=== PATIENT | male | born 1960 | race Two or more races ===

== ENCOUNTER 2016-04-29 10:41 | Inpatient (IN) | payer OTHER ==
[2016-04-29 12:47] VITALS: BMI 29.6
--- NOTE | 2016-04-29 15:00 | HP ---
COWS - Scale Resting Pulse: 2= [place] 101-120 Sweatin=Flushed/Facial Moisture Restless Observation: 1= Difficult to Sit Still Pupil Size: 0= Normal to Room Light Bone or Joint Aches: 2= Severe Diffuse Aches Runny Nose/ Eye Tearin= Runny Nose/Eyes GI Upset > 30mins: 0= None Tremor Observation: 2= Slight Tremor Visible Yawning Observation: 2= >3x During Session Anxiety or Irritability: 2=Irritable/Anxious Goose Flesh Skin: 0=Smooth Skin COWS Score: 15 CIWA Score - CIWA Score Nausea/Vomitin-Mild Nausea/No Vomiting Muscle Tremors: 4-Moderate,w/Arms Extend Anxiety: 4-Mod. Anxious/Guarded Agitation: 4-Moderately Restless Paroxysmal Sweats: 3 Orientation: 0-Oriented Tacttile Disturbances: 0-None Auditory Disturbances: 0-None Visual Disturbances: 0-None Headache: 1-Very Mild CIWA-Ar Total Score: 17 Admission ROS BHS - HPI Chief Complaint: I am here to detox. Allergies/Adverse Reactions: Allergies Allergy/AdvReac Type Severity Reaction Status Date / Time No Known Allergies Allergy Verified 04/29/16 14:31 History of Present Illness: pt is a 56yr old male seeking detox treatment for alcohol and heroin dependence. Exam Limitations: Language Barrier, Other (B/L hearing loss since childhood) - Ebola screening Have you traveled outside of the country in the last 21 days: No Have you had contact with anyone from an Ebola affected area: No Have you been sick,other than usual withdrawal symptoms: No - Review of Systems Constitutional: Chills, Diaphoresis, Loss of Appetite, Night Sweats, Changes in sleep, Unintentional Wgt. Loss EENT: reports: Blurred Vision, Tearing, Hearing Loss (B/L since childhood) Respiratory: reports: No Symptoms reported Cardiac: reports: No Symptoms Reported GI: reports: Poor Appetite, Poor Fluid Intake : reports: No Symptoms Reported Musculoskeletal: reports: Back Pain, Joint Pain, Muscle Pain, Neck Pain Integumentary: reports: Flushing, Sweating Neuro: reports: Headache, Tingling, Tremors Endocrine: reports: Excessive Sweating, Flushing, Intolerance to Cold, Intolerance to Heat Hematology: reports: No Symptoms Reported Psychiatric: reports: Judgement Intact, Mood/Affect Appropiate, Orientated x3, Agitated, Anxious Other Systems: Reviewed and Negative Patient History - Patient Medical History Hx Anemia: No Hx Asthma: No Hx Chronic Obstructive Pulmonary Disease (COPD): No Hx Cancer: No Hx Cardiac Disorders: No Hx Congestive Heart Failure: No Hx Hypertension: Yes Hx Hypercholesterolemia: Yes (ON MED) Hx Pacemaker: No HX Cerebrovascular Accident: No Hx Seizures: No Hx Dementia: No Hx Diabetes: No Hx Gastrointestinal Disorders: No Hx Liver Disease: No Hx Genitourinary Disorders: No Hx Sexually Transmitted Disorders: No Hx Renal Disease (ESRD): No Hx Thyroid Disease: No Hx Human Immunodeficiency Virus (HIV): No (last 10/23/15) Hx Hepatitis C: Yes (tx'ed ) Hx Depression: Yes Hx Suicide Attempt: No (denies) Hx Bipolar Disorder: No Hx Schizophrenia: No - Patient Surgical History Past Surgical History: No Hx Neurologic Surgery: No Hx Cataract Extraction: No Hx Cardiac Surgery: No Hx Lung Surgery: No Hx Breast Surgery: No Hx Breast Biopsy: No Hx Abdominal Surgery: No Hx Appendectomy: No Hx Cholecystectomy: No Hx Genitourinary Surgery: No Hx Section: No Hx Orthopedic Surgery: No Anesthesia Reaction: No - PPD History Previous Implant?: Yes Documented Results: Negative w/proof Implanted On Prior R Admission?: Yes Date: 08/30/15 Results: 0 mm PPD to be Administered?: No - Reproductive History Patient is a Female of Child Bearing Age (11 -55 yrs old): No - Smoking Cessation Smoking history: Current every day smoker Have you smoked in the past 12 months: Yes Aproximately how many cigarettes per day: 20 Cigars Per Day: 0 Hx Chewing Tobacco Use: No Initiated information on smoking cessation: Yes 'Breaking Loose' booklet given: 04/29/16 - Substance & Tx. History Hx Alcohol Use: Yes Hx Substance Use: Yes Substance Use Type: Alcohol, Cocaine, Heroin Hx Substance Use Treatment: Yes - Substances Abused Cocaine Route: Inhalation Frequency: 3-6 times per week Amount used: $20 Age of first use: 15 Date of Last Use: 04/29/16 Hereoin Route: Inhalation Frequency: Daily Amount used: 8-10 bags Age of first use: 15 Date of Last Use: 04/28/16 Alcohol-vodka/beer Route: Oral Frequency: Daily Amount used: 1 pt./1-6 pk. Age of first use: 15 Date of Last Use: 04/29/16 Family Disease History - Family Disease History Family Disease History: Other: Father (alcohol), Mother (alcohol, htn ,) Admission Physical Exam [facility] - Vital Signs Vital Signs: Vital Signs - 24 hr 04/29/16 12:43 Temperature 98.3 F Pulse Rate 101 H Respiratory 18 Rate Blood Pressure 151/86 - Physical General Appearance: Yes: Appropriately Dressed, Moderate Distress, Tremorous, Irritable, Sweating, Anxious HEENTM: Yes: Nasal Congestion Respiratory: Yes: Lungs Clear, Normal Breath Sounds, No Respiratory Distress Neck: Yes: No masses,lesions,Nodules Breast: Yes: Within Normal Limits Cardiology: Yes: Regular Rhythm, Regular Rate, S1, S2, Tachycardia Abdominal: Yes: Normal Bowel Sounds, Non Tender Genitourinary: Yes: Within Normal Limits Back: Yes: Normal Inspection Musculoskeletal: Yes: full range of Motion, Back pain Extremities: Yes: Normal Capillary Refill, Non-Tender, Tremors Neurological: Yes: Fully Oriented, Alert, Normal Response Integumentary: Yes: Other (discoloration throughout hands and arms d/t lupus diagnosis) Lymphatic: Yes: Within Normal Limits - Diagnostic (1) Hypertension Current Visit: Yes Status: Chronic Qualifiers: Hypertension type: essential hypertension Qualified Code(s): I10 - Essential (primary) hypertension (2) Alcohol dependence with uncomplicated withdrawal Current Visit: Yes Status: Chronic (3) Cocaine dependence Current Visit: Yes Status: Chronic Qualifiers: Substance use status: uncomplicated Qualified Code(s): F14.20 - Cocaine dependence, uncomplicated (4) Hepatitis C Current Visit: No Status: Resolved Qualifiers: Viral hepatitis chronicity: chronic Hepatic coma status: without hepatic coma Qualified Code(s): B18.2 - Chronic viral hepatitis C Comment: pt states received tx and is undetectable (5) Nicotine dependence Current Visit: Yes Status: Chronic Qualifiers: Nicotine product type: cigarettes Substance use status: uncomplicated Qualified Code(s): F17.210 - Nicotine dependence, cigarettes, uncomplicated (6) Opioid dependence with withdrawal Current Visit: Yes Status: Chronic (7) Lupus (systemic lupus erythematosus) Current Visit: Yes Status: Chronic Cleared for Admission [facility] - Detox or Rehab [facility] Level of Care: Medically Managed Detox Regimen/Protocol: Methadone/Valium S Breath Alcohol Content Breath Alcohol Content: 0 Urine Drug Screen - Results Drug Screen Negative: No Urine Drug Screen Results: AMBAR-Cocaine, OPI-Opiates, MDMA-Ecstasy, BZO- Benzodiazepines, MTD-Methadone, TCA-Tricyclic Antidepress, OXY-Oxycodone
[2016-04-29] MEDS ORDERED: guaiFENesin/D-METHORPHAN HB 10 ML UNIT-DOSE CUPS PO PRN (15:10)
[2016-04-29] MEDS ORDERED: hydrOXYzine PAMOATE 50 MG CAPSULE (FP) PO PRN (15:10)
[2016-04-29] MEDS ORDERED: MAGNESIUM CITRATE 300 ML BOTTLE PO PRN (15:10)
[2016-04-29] MEDS ORDERED: MENTHOL/PHENOL 1 EACH UD MM PRN (15:10)
[2016-04-29] MEDS ORDERED: MAGNESIUM HYDROX 2400MG/30ML ORAL SUSPENSION 30 ML CUP PO PRN (15:10)
[2016-04-29] MEDS ORDERED: LOPERAMIDE HCL 2 MG CAPSULE PO PRN (15:10)
[2016-04-29] MEDS ORDERED: P-EPHED 60MG/TRIPROLIDI 2.5MG TABLET PO PRN (15:10)
[2016-04-29] MEDS ORDERED: IBUPROFEN 400 MG TABLET (FP) PO PRN (15:10)
[2016-04-29] MEDS ORDERED: diazePAM 5 MG TABLET PO ONE (15:51)
[2016-04-29] MEDS ORDERED: METHADONE HCL 10 MG TABLET (FOR DETOX USE ONLY) PO ONE ×2 (15:52→23:00)
[2016-04-29 19:27] LABS: URINE APPEARANCE CLEAR; URINE BILIRUBIN NEGATIVE (NEGATIVE); URINE BLOOD NEGATIVE (NEGATIVE); URINE COLOR LTYELLOW; URINE GLUCOSE (UA) NEGATIVE (NEGATIVE); URINE KETONE NEGATIVE (NEGATIVE); URINE LEUK ESTERASE NEGATIVE (NEGATIVE); URINE NITRITE NEGATIVE (NEGATIVE); URINE PROTEIN NEGATIVE (NEGATIVE); URINE UROBILINOGEN NEGATIVE E.U./dl (0.2-1.0)
[2016-04-29] MEDS: diphenhydrAMINE HCL 50 MG CAPSULE PO PRN (22:28)
[2016-04-29] MEDS: ATORVASTATIN CA 40 MG TABLET (FP) PO SCH (22:28)
[2016-04-29] MEDS: THIAMINE HCL 100 MG TABLET (FP) PO SCH (22:28)
[2016-04-29] MEDS: diazePAM 5 MG TABLET PO SCH (22:28)
[2016-04-30] MEDS: diazePAM 5 MG TABLET PO SCH ×3 (06:03→22:33)
--- NOTE | 2016-04-30 09:58 | CONSULT ---
[facility] Psychiatric Consult - Data Date of interview: 04/30/16 Admission source: [facility] Identifying data: Readmission to [facility] for this 56 y/o male seeking detox treatment on for alcohol,cocaine and heroin dependence.Patient is ,a father of one,now domiciled,unemployed and supported on SSI benefits. Substance Abuse History: - Smoking Cessation. Smoking history: Current every day smoker. Have you smoked in the past 12 months: Yes. Aproximately how many cigarettes per day: 20. Cigars Per Day: 0. Hx Chewing Tobacco Use: No. Initiated information on smoking cessation: Yes. 'Breaking Loose' booklet given : 04/29/16. - Substance & Tx. History. Hx Alcohol Use: Yes. Hx Substance Use : Yes. Substance Use Type: Alcohol, Cocaine, Heroin. Hx Substance Use Treatment: Yes. - Substances Abused. Cocaine. Route: Inhalation. Frequency: 3-6 times per week. Amount used: $20. Age of first use: 15. Date of Last Use: 04/29/16. Hereoin. Route: Inhalation. Frequency: Daily. Amount used: 8-10 bags. Age of first use: 15. Date of Last Use: 04/28/16. Alcohol-vodka/beer. Route: Oral. Frequency: Daily. Amount used: 1 pt./1-6 pk. Age of first use: 15. Date of Last Use: 04/29/16. Confirmed by patient. Medical History: Arthritis,hepatitis C,decreased hearing,lupus and hypertension. Psychiatric History: History of multiple psychiatric hospitalizations.Diagnosed with MDD.Patient reports,in this interview,that he has not kept his appointments at the [facility] for the past three months.Mr Haskins states that his medications continue to be seroquel 200 mg/hs + trazodone 100 mg /hs + zolpidem 10 mg/hs.Did manage to keep some supply of medications by using the services of other doctors for refills (his psychiatrist has moved elsewhere, as per patient).He indicates that he took these medications prior to this [facility] visit (except for trazodone because he ran out of this medications a week ago) .No reported history of suicide attempts. Physical/Sexual Abuse/Trauma History: Patient denies. Additional Comment: Urine Drug Screen Results: AMBAR-Cocaine, OPI-Opiates, MDMA- Ecstasy, BZO-Benzodiazepines, MTD-Methadone, TCA-Tricyclic Antidepressant, OXY- Oxycodone.Noted. Mental Status Exam - Mental Status Exam Alert and Oriented to: Time, Place, Person Cognitive Function: Good Patient Appearance: Well Groomed Mood: Nervous, Withdrawn, Anxious Affect: Mood Congruent Patient Behavior: Fatigued, Appropriate, Cooperative Speech Pattern: Clear Voice Loudness: Normal Thought Process: Goal Oriented Thought Disorder: Not Present Hallucinations: Denies Suicidal Ideation: Denies Homicidal Ideation: Denies Insight/Judgement: Poor Sleep: Poorly, Difficulty falling asleep Appetite: Good Muscle strength/Tone: Normal Gait/Station: Normal Psychiatric Findings - Problem List ([place] 1, 2,3) (1) Alcohol dependence with uncomplicated withdrawal Current Visit: Yes Status: Acute (2) Cocaine dependence Current Visit: Yes Status: Acute Qualifiers: Substance use status: uncomplicated Qualified Code(s): F14.20 - Cocaine dependence, uncomplicated (3) Nicotine dependence Current Visit: Yes Status: Acute Qualifiers: Nicotine product type: cigarettes Substance use status: uncomplicated Qualified Code(s): F17.210 - Nicotine dependence, cigarettes, uncomplicated (4) Opioid dependence with withdrawal Current Visit: Yes Status: Acute (5) Substance induced mood disorder Current Visit: Yes Status: Acute (6) Hypertension Current Visit: Yes Status: Chronic Qualifiers: Hypertension type: essential hypertension Qualified Code(s): I10 - Essential (primary) hypertension (7) Lupus (systemic lupus erythematosus) Current Visit: Yes Status: Chronic (8) Insomnia Current Visit: Yes Status: Acute - Initial Treatment Plan Initial Treatment Plan: Psychoeducation.Detoxification.Medications : seroquel 200 mg po hs + trazodone 100 mg po hs.Side effects/benefits discussed with patient.Made aware of the risk of priapism.He agrees with this plan.Observation.
[2016-04-30] MEDS ORDERED: METHADONE HCL 10 MG TABLET (FOR DETOX USE ONLY) PO SCH (10:00)
[2016-04-30] MEDS: ASPIRIN 81 MG CHEWABLE TABLETS PO SCH (10:15)
[2016-04-30] MEDS: amLODIPine BESYLATE 5 MG TABLET (FP) PO SCH (10:16)
[2016-04-30] MEDS: ACETAMINOPHEN 325 MG TABLET (FP) PO PRN (10:16)
[2016-04-30] MEDS: NICOTINE 21 MG/24 HOURS TOPICAL PATCH TD SCH (10:16)
[2016-04-30] MEDS: PRENATAL VITAMINS W/ FOLIC ACID TABLET (FP) PO SCH (10:16)
[2016-04-30 10:17] LABS: MCHC 34.4 g/dl (32.0-35.9); MEAN CELL VOLUME 87.4 fl (80-96); MEAN PLT VOLUME 8.3 fl (7.5-11.1); RDW 13.2 % (11.9-15.9); WHITE BLOOD COUNT 5.6 K/mm3 (4.0-10.0)
[2016-04-30 10:48] LABS: ALBUMIN 4.2 g/dl (3.4-5.0); ALK PHOS 86 U/L (45-117); ANION GAP 11 (8-16); BILIRUBIN,TOTAL 0.4 mg/dL (0.2-1.0); CALCIUM 9.1 mg/dL (8.5-10.1); CO2 26 mmol/L (21-32); CREATININE 0.8 mg/dL (0.7-1.3); GLUCOSE,RANDOM 86 mg/dL (74-106); SGOT/AST 42 U/L (15-37); SGPT/ALT 80 U/L (12-78); TOT PROT 7.5 g/dl (6.4-8.2)
[2016-04-30] MEDS ORDERED: COLLOIDAL OATMEAL 1 BAR EACH TP SCH (11:45)
--- NOTE | 2016-04-30 11:49 | PN ---
[facility] CIWA - CIWA Score Nausea/Vomitin-Cont. Nausea/Vomiting Muscle Tremors: 4-Moderate,w/Arms Extend Anxiety: 4-Mod. Anxious/Guarded Agitation: 4-Moderately Restless Paroxysmal Sweats: 1-Minimal Palms Moist Orientation: 0-Oriented Tacttile Disturbances: 3-Moderate Itch/Numb/Burn Auditory Disturbances: 0-None Visual Disturbances: 0-None Headache: 0-None Present CIWA-Ar Total Score: 23 BHS COWS - Scale Resting Pulse: 0= [place] 80 or Below Sweatin= Chills/Flushing Restless Observation: 3= Extraneous Movement Pupil Size: 2= Moderately Dilated Bone or Joint Aches: 4=Acute Joint/Muscle Pain Runny Nose/ Eye Tearin= Nasal Congestion GI Upset > 30mins: 1= Stomach Cramp Tremor Observation of Outstretched Hands: 1= Tremor [place], Not Seen Yawning Observation: 1= 1-2x During Session Anxiety or Irritability: 2=Irritable/Anxious Goose Flesh Skin: 0=Smooth Skin COWS Score: 16 S Progress Note (SOAP) Subjective: ANXIETY,IRRITABILITY,SWEATS/CHILLS,NECK/SHOULDER PAIN Objective: 04/30/16 11:48 Vital Signs Temperature 95.8 F L 04/30/16 10:07 Pulse Rate 73 04/30/16 10:07 Respiratory Rate 18 04/30/16 10:07 Blood Pressure 146/85 04/30/16 10:07 O2 Sat by Pulse Oximetry (%) Laboratory Last Values WBC 5.6 K/mm3 (4.0-10.0) D 04/30/16 06:00 RBC 4.81 M/mm3 (4.00-5.60) 04/30/16 06:00 Hgb 14.4 GM/dL (11.7-16.9) 04/30/16 06:00 Hct 42.0 % (35.4-49) 04/30/16 06:00 MCV 87.4 fl (80-96) 04/30/16 06:00 MCHC 34.4 g/dl (32.0-35.9) 04/30/16 06:00 RDW 13.2 % (11.9-15.9) 04/30/16 06:00 MPV 8.3 fl (7.5-11.1) 04/30/16 06:00 Sodium 140 mmol/L (136-145) 04/30/16 06:00 Potassium 3.7 mmol/L (3.5-5.1) 04/30/16 06:00 Chloride 103 mmol/L (98-107) 04/30/16 06:00 Carbon Dioxide 26 mmol/L (21-32) 04/30/16 06:00 Anion Gap 11 (8-16) 04/30/16 06:00 BUN 16 mg/dL (7-18) 04/30/16 06:00 Creatinine 0.8 mg/dL (0.7-1.3) 04/30/16 06:00 Creat Clearance w eGFR > 60 (>60) 04/30/16 06:00 Random Glucose 86 mg/dL (74-106) 04/30/16 06:00 Calcium 9.1 mg/dL (8.5-10.1) 04/30/16 06:00 Total Bilirubin 0.4 mg/dL (0.2-1.0) 04/30/16 06:00 AST 42 U/L (15-37) H D 04/30/16 06:00 ALT 80 U/L (12-78) H 04/30/16 06:00 Alkaline Phosphatase 86 U/L (45-117) 04/30/16 06:00 Total Protein 7.5 g/dl (6.4-8.2) D 04/30/16 06:00 Albumin 4.2 g/dl (3.4-5.0) D 04/30/16 06:00 Urine Color Ltyellow 04/29/16 19:00 Urine Appearance Clear 04/29/16 19:00 Urine pH 5.0 (5.0-8.0) 04/29/16 19:00 Ur Specific [place] 1.024 (1.001-1.035) 04/29/16 19:00 Urine Protein Negative (NEGATIVE) 04/29/16 19:00 Urine Glucose (UA) Negative (NEGATIVE) 04/29/16 19:00 Urine Ketones Negative (NEGATIVE) 04/29/16 19:00 Urine Blood Negative (NEGATIVE) 04/29/16 19:00 Urine Nitrite Negative (NEGATIVE) 04/29/16 19:00 Urine Bilirubin Negative (NEGATIVE) 04/29/16 19:00 Urine Urobilinogen Negative E.U./dl (0.2-1.0) 04/29/16 19:00 Ur Leukocyte Esterase Negative (NEGATIVE) 04/29/16 19:00 Assessment: 04/30/16 11:48 WITHDRAWAL SX Plan: CONTINUE DETOX MOTRIN DIRECTED FLEXERIL DIRECTED
[2016-04-30 12:04] LABS: PLATELET ESTIMATE ADEQUATE (NORMAL)
--- NOTE | 2016-04-30 12:21 | EKG ---
Test Reason : Blood Pressure : / mmHG Vent. Rate : 075 BPM Atrial Rate : 075 BPM P-R Int : 186 ms QRS Dur : 082 ms QT Int : 362 ms P-R-T Axes : 042 036 -03 degrees QTc Int : 404 ms NORMAL SINUS RHYTHM POSSIBLE LEFT ATRIAL ENLARGEMENT NONSPECIFIC ST ABNORMALITY ABNORMAL ECG NO PREVIOUS ECGS AVAILABLE Confirmed by FLORENTIN RAY MD ([id number]) on 04/30/2016 12:21:01 PM Referred By: Confirmed By:FLORENTIN RAY MD
[2016-04-30] MEDS: CYCLOBENZAPRINE HCL 10 MG TABLET (FP) PO SCH ×2 (14:12→22:33)
[2016-04-30] MEDS ORDERED: IBUPROFEN 600 MG TABLET (FP) PO PRN (19:42)
[2016-04-30] MEDS: THIAMINE HCL 100 MG TABLET (FP) PO SCH (22:30)
[2016-04-30] MEDS: ATORVASTATIN CA 40 MG TABLET (FP) PO SCH (22:33)
[2016-04-30] MEDS: traZODone HCL 100 MG TABLET (FP) PO SCH (22:33)
[2016-04-30] MEDS: QUEtiapine FUMARATE 200 MG TABLET PO SCH (22:33)
[2016-04-30] MEDS: diphenhydrAMINE HCL 50 MG CAPSULE PO PRN (22:35)
[2016-05-01] MEDS: CYCLOBENZAPRINE HCL 10 MG TABLET (FP) PO SCH ×3 (05:59→22:29)
[2016-05-01] MEDS: diazePAM 5 MG TABLET PO PRN (06:00)
[2016-05-01] MEDS: diazePAM 5 MG TABLET PO SCH ×2 (10:19→22:28)
[2016-05-01] MEDS: ASPIRIN 81 MG CHEWABLE TABLETS PO SCH (10:19)
[2016-05-01] MEDS: NICOTINE 21 MG/24 HOURS TOPICAL PATCH TD SCH (10:19)
[2016-05-01] MEDS: PRENATAL VITAMINS W/ FOLIC ACID TABLET (FP) PO SCH (10:19)
[2016-05-01] MEDS: METHADONE HCL 5 MG TABLET (FOR DETOX USE ONLY) PO SCH (10:19)
[2016-05-01] MEDS: amLODIPine BESYLATE 5 MG TABLET (FP) PO SCH (10:19)
--- NOTE | 2016-05-01 12:06 | PN ---
[facility] CIWA - CIWA Score Nausea/Vomitin-No Nausea/No Vomiting Muscle Tremors: 4-Moderate,w/Arms Extend Anxiety: 5 Agitation: 4-Moderately Restless Paroxysmal Sweats: 1-Minimal Palms Moist Orientation: 0-Oriented Tacttile Disturbances: 3-Moderate Itch/Numb/Burn Auditory Disturbances: 0-None Visual Disturbances: 0-None Headache: 0-None Present CIWA-Ar Total Score: 17 BHS COWS - Scale Resting Pulse: 0= [place] 80 or Below Sweatin= Chills/Flushing Restless Observation: 3= Extraneous Movement Pupil Size: 2= Moderately Dilated Bone or Joint Aches: 4=Acute Joint/Muscle Pain Runny Nose/ Eye Tearin= Nasal Congestion GI Upset > 30mins: 1= Stomach Cramp Tremor Observation of Outstretched Hands: 1= Tremor [place], Not Seen Yawning Observation: 1= 1-2x During Session Anxiety or Irritability: 2=Irritable/Anxious Goose Flesh Skin: 0=Smooth Skin COWS Score: 16 [facility] Progress Note (SOAP) Subjective: ANXIETY,IRRITABILITY,SWEATS,TREMORS,FATIGUE. Objective: 05/01/16 12:05 Vital Signs Temperature 98.4 F 05/01/16 09:48 Pulse Rate 80 05/01/16 09:48 Respiratory Rate 20 05/01/16 09:48 Blood Pressure 123/80 05/01/16 09:48 O2 Sat by Pulse Oximetry (%) Laboratory Last Values WBC 5.6 K/mm3 (4.0-10.0) D 04/30/16 06:00 RBC 4.81 M/mm3 (4.00-5.60) 04/30/16 06:00 Hgb 14.4 GM/dL (11.7-16.9) 04/30/16 06:00 Hct 42.0 % (35.4-49) 04/30/16 06:00 MCV 87.4 fl (80-96) 04/30/16 06:00 MCHC 34.4 g/dl (32.0-35.9) 04/30/16 06:00 RDW 13.2 % (11.9-15.9) 04/30/16 06:00 Plt Count Not Reportable 04/30/16 06:00 MPV 8.3 fl (7.5-11.1) 04/30/16 06:00 Platelet Estimate Adequate (NORMAL) 04/30/16 06:00 Platelet Comment Mod plt clumping 04/30/16 06:00 Sodium 140 mmol/L (136-145) 04/30/16 06:00 Potassium 3.7 mmol/L (3.5-5.1) 04/30/16 06:00 Chloride 103 mmol/L (98-107) 04/30/16 06:00 Carbon Dioxide 26 mmol/L (21-32) 04/30/16 06:00 Anion Gap 11 (8-16) 04/30/16 06:00 BUN 16 mg/dL (7-18) 04/30/16 06:00 Creatinine 0.8 mg/dL (0.7-1.3) 04/30/16 06:00 Creat Clearance w eGFR > 60 (>60) 04/30/16 06:00 Random Glucose 86 mg/dL (74-106) 04/30/16 06:00 Calcium 9.1 mg/dL (8.5-10.1) 04/30/16 06:00 Total Bilirubin 0.4 mg/dL (0.2-1.0) 04/30/16 06:00 AST 42 U/L (15-37) H D 04/30/16 06:00 ALT 80 U/L (12-78) H 04/30/16 06:00 Alkaline Phosphatase 86 U/L (45-117) 04/30/16 06:00 Total Protein 7.5 g/dl (6.4-8.2) D 04/30/16 06:00 Albumin 4.2 g/dl (3.4-5.0) D 04/30/16 06:00 Urine Color Ltyellow 04/29/16 19:00 Urine Appearance Clear 04/29/16 19:00 Urine pH 5.0 (5.0-8.0) 04/29/16 19:00 Ur Specific [place] 1.024 (1.001-1.035) 04/29/16 19:00 Urine Protein Negative (NEGATIVE) 04/29/16 19:00 Urine Glucose (UA) Negative (NEGATIVE) 04/29/16 19:00 Urine Ketones Negative (NEGATIVE) 04/29/16 19:00 Urine Blood Negative (NEGATIVE) 04/29/16 19:00 Urine Nitrite Negative (NEGATIVE) 04/29/16 19:00 Urine Bilirubin Negative (NEGATIVE) 04/29/16 19:00 Urine Urobilinogen Negative E.U./dl (0.2-1.0) 04/29/16 19:00 Ur Leukocyte Esterase Negative (NEGATIVE) 04/29/16 19:00 RPR Titer Nonreactive (NONREACTIVE) 04/30/16 06:00 Assessment: 05/01/16 12:06 WITHDRAWAL SX Plan: CONTINUE DETOX
[2016-05-01] MEDS: THIAMINE HCL 100 MG TABLET (FP) PO SCH (22:28)
[2016-05-01] MEDS: traZODone HCL 100 MG TABLET (FP) PO SCH (22:29)
[2016-05-01] MEDS: ATORVASTATIN CA 40 MG TABLET (FP) PO SCH (22:29)
[2016-05-01] MEDS: QUEtiapine FUMARATE 200 MG TABLET PO SCH (22:29)
[2016-05-01] MEDS: diphenhydrAMINE HCL 50 MG CAPSULE PO PRN (22:29)
[2016-05-02] MEDS: CYCLOBENZAPRINE HCL 10 MG TABLET (FP) PO SCH ×3 (05:47→22:28)
[2016-05-02] MEDS: diazePAM 5 MG TABLET PO PRN (05:48)
[2016-05-02] MEDS: PRENATAL VITAMINS W/ FOLIC ACID TABLET (FP) PO SCH (10:20)
[2016-05-02] MEDS: NICOTINE 21 MG/24 HOURS TOPICAL PATCH TD SCH (10:20)
[2016-05-02] MEDS: METHADONE HCL 5 MG TABLET (FOR DETOX USE ONLY) PO SCH (10:21)
[2016-05-02] MEDS: diazePAM 5 MG TABLET PO SCH ×2 (10:21→22:27)
[2016-05-02] MEDS: ASPIRIN 81 MG CHEWABLE TABLETS PO SCH (10:21)
[2016-05-02] MEDS: amLODIPine BESYLATE 5 MG TABLET (FP) PO SCH (10:21)
--- NOTE | 2016-05-02 11:14 | PN ---
BHS Progress Note (SOAP) Subjective: sweating,interrupted sleep,restless Objective: 05/02/16 11:13 Vital Signs - 8 hr 05/02/16 05/02/16 05/02/16 03:33 06:25 09:34 Temperature 98.0 F 97.0 F L Pulse Rate 90 94 H Respiratory 18 18 20 Rate Blood Pressure 110/70 114/82 Laboratory Last Values WBC 5.6 K/mm3 (4.0-10.0) D 04/30/16 06:00 RBC 4.81 M/mm3 (4.00-5.60) 04/30/16 06:00 Hgb 14.4 GM/dL (11.7-16.9) 04/30/16 06:00 Hct 42.0 % (35.4-49) 04/30/16 06:00 MCV 87.4 fl (80-96) 04/30/16 06:00 MCHC 34.4 g/dl (32.0-35.9) 04/30/16 06:00 RDW 13.2 % (11.9-15.9) 04/30/16 06:00 Plt Count Not Reportable 04/30/16 06:00 MPV 8.3 fl (7.5-11.1) 04/30/16 06:00 Platelet Estimate Adequate (NORMAL) 04/30/16 06:00 Platelet Comment Mod plt clumping 04/30/16 06:00 Sodium 140 mmol/L (136-145) 04/30/16 06:00 Potassium 3.7 mmol/L (3.5-5.1) 04/30/16 06:00 Chloride 103 mmol/L (98-107) 04/30/16 06:00 Carbon Dioxide 26 mmol/L (21-32) 04/30/16 06:00 Anion Gap 11 (8-16) 04/30/16 06:00 BUN 16 mg/dL (7-18) 04/30/16 06:00 Creatinine 0.8 mg/dL (0.7-1.3) 04/30/16 06:00 Creat Clearance w eGFR > 60 (>60) 04/30/16 06:00 Random Glucose 86 mg/dL (74-106) 04/30/16 06:00 Calcium 9.1 mg/dL (8.5-10.1) 04/30/16 06:00 Total Bilirubin 0.4 mg/dL (0.2-1.0) 04/30/16 06:00 AST 42 U/L (15-37) H D 04/30/16 06:00 ALT 80 U/L (12-78) H 04/30/16 06:00 Alkaline Phosphatase 86 U/L (45-117) 04/30/16 06:00 Total Protein 7.5 g/dl (6.4-8.2) D 04/30/16 06:00 Albumin 4.2 g/dl (3.4-5.0) D 04/30/16 06:00 Urine Color Ltyellow 04/29/16 19:00 Urine Appearance Clear 04/29/16 19:00 Urine pH 5.0 (5.0-8.0) 04/29/16 19:00 Ur Specific [place] 1.024 (1.001-1.035) 04/29/16 19:00 Urine Protein Negative (NEGATIVE) 04/29/16 19:00 Urine Glucose (UA) Negative (NEGATIVE) 04/29/16 19:00 Urine Ketones Negative (NEGATIVE) 04/29/16 19:00 Urine Blood Negative (NEGATIVE) 04/29/16 19:00 Urine Nitrite Negative (NEGATIVE) 04/29/16 19:00 Urine Bilirubin Negative (NEGATIVE) 04/29/16 19:00 Urine Urobilinogen Negative E.U./dl (0.2-1.0) 04/29/16 19:00 Ur Leukocyte Esterase Negative (NEGATIVE) 04/29/16 19:00 RPR Titer Nonreactive (NONREACTIVE) 04/30/16 06:00 labs noted Assessment: 05/02/16 11:13 withdrawal sx. Plan: continue detox
[2016-05-02] MEDS: THIAMINE HCL 100 MG TABLET (FP) PO SCH (22:27)
[2016-05-02] MEDS: QUEtiapine FUMARATE 200 MG TABLET PO SCH (22:28)
[2016-05-02] MEDS: MAG HYDROX/AL HYDROX/SIMETH 30 ML UNIT-DOSE CUP PO PRN (22:28)
[2016-05-02] MEDS: traZODone HCL 100 MG TABLET (FP) PO SCH (22:28)
[2016-05-02] MEDS: ATORVASTATIN CA 40 MG TABLET (FP) PO SCH (22:28)
[2016-05-03] MEDS: CYCLOBENZAPRINE HCL 10 MG TABLET (FP) PO SCH ×3 (05:46→22:37)
[2016-05-03] MEDS ORDERED: METHADONE HCL 10 MG TABLET (FOR DETOX USE ONLY) PO SCH (10:00)
[2016-05-03] MEDS ORDERED: diazePAM 5 MG TABLET PO SCH (10:00)
[2016-05-03] MEDS: ASPIRIN 81 MG CHEWABLE TABLETS PO SCH (13:24)
[2016-05-03] MEDS: NICOTINE 21 MG/24 HOURS TOPICAL PATCH TD SCH (13:25)
[2016-05-03] MEDS: PRENATAL VITAMINS W/ FOLIC ACID TABLET (FP) PO SCH (13:25)
[2016-05-03] MEDS: amLODIPine BESYLATE 5 MG TABLET (FP) PO SCH (13:25)
--- NOTE | 2016-05-03 14:51 | PN ---
S Progress Note (SOAP) Subjective: Tremors, Abdominal cramping, Diarrhea, Nausea, Sweating, Body Aches. Objective: PT. A & O X 2 (DISORIENTED ABOUT DAY/DATE). 05/03/16 14:48 Vital Signs Temperature 97 F L 05/03/16 14:23 Pulse Rate 107 H 05/03/16 14:23 Respiratory Rate 18 05/03/16 14:23 Blood Pressure 117/82 05/03/16 14:23 O2 Sat by Pulse Oximetry (%) Laboratory Last Values WBC 5.6 K/mm3 (4.0-10.0) D 04/30/16 06:00 RBC 4.81 M/mm3 (4.00-5.60) 04/30/16 06:00 Hgb 14.4 GM/dL (11.7-16.9) 04/30/16 06:00 Hct 42.0 % (35.4-49) 04/30/16 06:00 MCV 87.4 fl (80-96) 04/30/16 06:00 MCHC 34.4 g/dl (32.0-35.9) 04/30/16 06:00 RDW 13.2 % (11.9-15.9) 04/30/16 06:00 Plt Count Not Reportable 04/30/16 06:00 MPV 8.3 fl (7.5-11.1) 04/30/16 06:00 Platelet Estimate Adequate (NORMAL) 04/30/16 06:00 Platelet Comment Mod plt clumping 04/30/16 06:00 Sodium 140 mmol/L (136-145) 04/30/16 06:00 Potassium 3.7 mmol/L (3.5-5.1) 04/30/16 06:00 Chloride 103 mmol/L (98-107) 04/30/16 06:00 Carbon Dioxide 26 mmol/L (21-32) 04/30/16 06:00 Anion Gap 11 (8-16) 04/30/16 06:00 BUN 16 mg/dL (7-18) 04/30/16 06:00 Creatinine 0.8 mg/dL (0.7-1.3) 04/30/16 06:00 Creat Clearance w eGFR > 60 (>60) 04/30/16 06:00 Random Glucose 86 mg/dL (74-106) 04/30/16 06:00 Calcium 9.1 mg/dL (8.5-10.1) 04/30/16 06:00 Total Bilirubin 0.4 mg/dL (0.2-1.0) 04/30/16 06:00 AST 42 U/L (15-37) H D 04/30/16 06:00 ALT 80 U/L (12-78) H 04/30/16 06:00 Alkaline Phosphatase 86 U/L (45-117) 04/30/16 06:00 Total Protein 7.5 g/dl (6.4-8.2) D 04/30/16 06:00 Albumin 4.2 g/dl (3.4-5.0) D 04/30/16 06:00 Urine Color Ltyellow 04/29/16 19:00 Urine Appearance Clear 04/29/16 19:00 Urine pH 5.0 (5.0-8.0) 04/29/16 19:00 Ur Specific [place] 1.024 (1.001-1.035) 04/29/16 19:00 Urine Protein Negative (NEGATIVE) 04/29/16 19:00 Urine Glucose (UA) Negative (NEGATIVE) 04/29/16 19:00 Urine Ketones Negative (NEGATIVE) 04/29/16 19:00 Urine Blood Negative (NEGATIVE) 04/29/16 19:00 Urine Nitrite Negative (NEGATIVE) 04/29/16 19:00 Urine Bilirubin Negative (NEGATIVE) 04/29/16 19:00 Urine Urobilinogen Negative E.U./dl (0.2-1.0) 04/29/16 19:00 Ur Leukocyte Esterase Negative (NEGATIVE) 04/29/16 19:00 RPR Titer Nonreactive (NONREACTIVE) 04/30/16 06:00 LABS NOTED. Assessment: 05/03/16 14:49 WITHDRAWAL SYMPTOMS. Plan: CONTINUE DETOX. ADVISED PATIENT TO FOLLOW-UP WITH [facility] / REHAB MEDICAL PROVIDER AFTER DISCHARGE FROM DETOX FOR GENERAL MEDICAL ASSESSMENT AND FOR ABNORMAL LAB VALUES.
[2016-05-03] MEDS: traZODone HCL 100 MG TABLET (FP) PO SCH (22:37)
[2016-05-03] MEDS: ATORVASTATIN CA 40 MG TABLET (FP) PO SCH (22:37)
[2016-05-03] MEDS: diphenhydrAMINE HCL 50 MG CAPSULE PO PRN (22:37)
[2016-05-03] MEDS: THIAMINE HCL 100 MG TABLET (FP) PO SCH (22:37)
[2016-05-03] MEDS: QUEtiapine FUMARATE 200 MG TABLET PO SCH (22:37)
[2016-05-03] MEDS: ACETAMINOPHEN 325 MG TABLET (FP) PO PRN (22:38)
[2016-05-03] MEDS: MAG HYDROX/AL HYDROX/SIMETH 30 ML UNIT-DOSE CUP PO PRN (22:39)
[2016-05-04] MEDS: CYCLOBENZAPRINE HCL 10 MG TABLET (FP) PO SCH (05:51)
[2016-05-04] MEDS ORDERED: METHADONE HCL 5 MG TABLET (FOR DETOX USE ONLY) PO SCH (06:00)
[2016-05-04 06:23] VITALS: BP 105/64; PULSE 92; TEMP 96.6
--- NOTE | 2016-05-04 10:25 | DS ---
[facility] Detox Discharge Summary Admission Date: 04/29/16 Discharge Date: 05/04/16 - History Present History: Alcohol Dependence, Cocaine Dependence, Opioid Dependence Pertinent Past History: HTN SLE HEP c - Physical Exam Results Vital Signs: Vital Signs Temperature 96.6 F L 05/04/16 06:22 Pulse Rate 92 H 05/04/16 06:22 Respiratory Rate 16 05/04/16 06:22 Blood Pressure 105/64 05/04/16 06:22 O2 Sat by Pulse Oximetry (%) Pertinent Admission Physical Exam Findings: Withdrawal sx. Laboratory Last Values WBC 5.6 K/mm3 (4.0-10.0) D 04/30/16 06:00 RBC 4.81 M/mm3 (4.00-5.60) 04/30/16 06:00 Hgb 14.4 GM/dL (11.7-16.9) 04/30/16 06:00 Hct 42.0 % (35.4-49) 04/30/16 06:00 MCV 87.4 fl (80-96) 04/30/16 06:00 MCHC 34.4 g/dl (32.0-35.9) 04/30/16 06:00 RDW 13.2 % (11.9-15.9) 04/30/16 06:00 Plt Count Not Reportable 04/30/16 06:00 MPV 8.3 fl (7.5-11.1) 04/30/16 06:00 Platelet Estimate Adequate (NORMAL) 04/30/16 06:00 Platelet Comment Mod plt clumping 04/30/16 06:00 Sodium 140 mmol/L (136-145) 04/30/16 06:00 Potassium 3.7 mmol/L (3.5-5.1) 04/30/16 06:00 Chloride 103 mmol/L (98-107) 04/30/16 06:00 Carbon Dioxide 26 mmol/L (21-32) 04/30/16 06:00 Anion Gap 11 (8-16) 04/30/16 06:00 BUN 16 mg/dL (7-18) 04/30/16 06:00 Creatinine 0.8 mg/dL (0.7-1.3) 04/30/16 06:00 Creat Clearance w eGFR > 60 (>60) 04/30/16 06:00 Random Glucose 86 mg/dL (74-106) 04/30/16 06:00 Calcium 9.1 mg/dL (8.5-10.1) 04/30/16 06:00 Total Bilirubin 0.4 mg/dL (0.2-1.0) 04/30/16 06:00 AST 42 U/L (15-37) H D 04/30/16 06:00 ALT 80 U/L (12-78) H 04/30/16 06:00 Alkaline Phosphatase 86 U/L (45-117) 04/30/16 06:00 Total Protein 7.5 g/dl (6.4-8.2) D 04/30/16 06:00 Albumin 4.2 g/dl (3.4-5.0) D 04/30/16 06:00 Urine Color Lty[place] 04/29/16 19:00 Urine Appearance Clear 04/29/16 19:00 Urine pH 5.0 (5.0-8.0) 04/29/16 19:00 Ur Specific [place] 1.024 (1.001-1.035) 04/29/16 19:00 Urine Protein Negative (NEGATIVE) 04/29/16 19:00 Urine Glucose (UA) Negative (NEGATIVE) 04/29/16 19:00 Urine Ketones Negative (NEGATIVE) 04/29/16 19:00 Urine Blood Negative (NEGATIVE) 04/29/16 19:00 Urine Nitrite Negative (NEGATIVE) 04/29/16 19:00 Urine Bilirubin Negative (NEGATIVE) 04/29/16 19:00 Urine Urobilinogen Negative E.U./dl (0.2-1.0) 04/29/16 19:00 Ur Leukocyte Esterase Negative (NEGATIVE) 04/29/16 19:00 RPR Titer Nonreactive (NONREACTIVE) 04/30/16 06:00 labs noted - Treatment Hospital Course: Detox Protocol Followed, Detoxed Safely, Responded well, Discharged Condition Good, Rehab Referral Accepted - Medication Discharge Medications: Ambulatory Orders Zolpidem Tartrate [Ambien] 10 mg PO HS 07/08/13 Amlodipine Besylate [Norvasc -] 5 mg PO DAILY 02/20/16 Aspirin [ASA -] 81 mg PO DAILY 02/20/16 Atorvastatin Ca [Lipitor] 40 mg PO HS 02/20/16 Quetiapine Fumarate [Seroquel] 200 tab PO HS 02/20/16 Trazodone HCl 100 mg PO HS #30 tablet 02/21/16 Quetiapine Fumarate [Seroquel -] 200 mg PO HS #30 tab 04/30/16 Trazodone HCl 100 mg PO HS #30 tablet 04/30/16 - Diagnosis (1) Alcohol dependence with uncomplicated withdrawal Current Visit: Yes Status: Acute (2) Cocaine dependence Current Visit: Yes Status: Acute Qualifiers: Substance use status: uncomplicated Qualified Code(s): F14.20 - Cocaine dependence, uncomplicated (3) Insomnia Current Visit: Yes Status: Acute (4) Nicotine dependence Current Visit: Yes Status: Acute Qualifiers: Nicotine product type: cigarettes Substance use status: uncomplicated Qualified Code(s): F17.210 - Nicotine dependence, cigarettes, uncomplicated (5) Opioid dependence with withdrawal Current Visit: Yes Status: Acute (6) Substance induced mood disorder Current Visit: Yes Status: Acute (7) Hypertension Current Visit: Yes Status: Chronic Qualifiers: Hypertension type: essential hypertension Qualified Code(s): I10 - Essential (primary) hypertension (8) Lupus (systemic lupus erythematosus) Current Visit: Yes Status: Chronic - AMA Did Patient Leave Against Medical Advice: No
[2016-05-04] MEDS: ASPIRIN 81 MG CHEWABLE TABLETS PO SCH (10:42)
[2016-05-04] MEDS: PRENATAL VITAMINS W/ FOLIC ACID TABLET (FP) PO SCH (10:43)
[2016-05-04] MEDS: amLODIPine BESYLATE 5 MG TABLET (FP) PO SCH (10:43)
[2016-05-04] MEDS: NICOTINE 21 MG/24 HOURS TOPICAL PATCH TD SCH (10:43)
== END 2016-05-04 11:25 | disposition home or self-care (01) | DRG 773 ==
LOC: YASAS 10:41 → Y3N 15:35
PROVIDERS: ADMIT Internal Medicine; ATTEND Internal Medicine
PROC: HZ2ZZZZ Detoxification Services for Substance Abuse Treatment (ICD-10-PCS; principal; 2016-05-04)
DX: F11.23 Opioid dependence with withdrawal (principal); F10.230 Alcohol dependence with withdrawal, uncomplicated; F14.20 Cocaine dependence, uncomplicated; F17.210 Nicotine dependence, cigarettes, uncomplicated; F19.24 Other psychoactive substance dependence with psychoactive substance-induced mood disorder; G47.00 Insomnia, unspecified; I10 Essential (primary) hypertension; M32.9 Systemic lupus erythematosus, unspecified
CPT/HCPCS: 36415; 80053; 81003; 85027; 86593; 93005; 93010

== ENCOUNTER 2016-06-07 15:39 | Inpatient (IN) | payer OTHER ==
[2016-06-07 15:55] VITALS: BMI 29.4
--- NOTE | 2016-06-07 16:20 | HP ---
COWS - Scale Resting Pulse: 0= OR 80 or Below Sweatin=Flushed/Facial Moisture Restless Observation: 1= Difficult to Sit Still Pupil Size: 2= Moderately Dilated Bone or Joint Aches: 2= Severe Diffuse Aches Runny Nose/ Eye Tearin= Runny Nose/Eyes GI Upset > 30mins: 2= Nausea/Diarrhea Tremor Observation: 2= Slight Tremor Visible Yawning Observation: 1= 1-2x During Session Anxiety or Irritability: 2=Irritable/Anxious Goose Flesh Skin: 0=Smooth Skin COWS Score: 16 CIWA Score - CIWA Score Nausea/Vomitin Muscle Tremors: 4-Moderate,w/Arms Extend Anxiety: 4-Mod. Anxious/Guarded Agitation: 4-Moderately Restless Paroxysmal Sweats: 3 Orientation: 2-Disoriented Date<2 days Tacttile Disturbances: 1-Very Mild Itch/Numbness Auditory Disturbances: 0-None Visual Disturbances: 0-None Headache: 1-Very Mild CIWA-Ar Total Score: 21 Admission ROS BHS - HPI Chief Complaint: Withdrawal sx. Allergies/Adverse Reactions: Allergies Allergy/AdvReac Type Severity Reaction Status Date / Time No Known Allergies Allergy Verified 06/07/16 15:55 History of Present Illness: 56 y/o man with a long hx. of heroin & alcohol dependence is admitted for detox. Pt. has been in previous detox, denies significant sobriety. Exam Limitations: No Limitations - Ebola screening Have you traveled outside of the country in the last 21 days: No Have you had contact with anyone from an Ebola affected area: No Have you been sick,other than usual withdrawal symptoms: No Do you have a fever: No - Review of Systems Constitutional: Diaphoresis EENT: reports: Nose Congestion Respiratory: reports: No Symptoms reported Cardiac: reports: No Symptoms Reported GI: reports: Nausea, Abdominal cramping : reports: No Symptoms Reported Musculoskeletal: reports: No Symptoms Reported Integumentary: reports: Sweating Neuro: reports: Tremors Endocrine: reports: No Symptoms Reported Hematology: reports: No Symptoms Reported Psychiatric: reports: No Sypmtoms Reported Other Systems: Reviewed and Negative Patient History - Patient Medical History Hx Anemia: No Hx Asthma: No Hx Chronic Obstructive Pulmonary Disease (COPD): No Hx Cancer: No Hx Cardiac Disorders: No Hx Congestive Heart Failure: No Hx Hypertension: Yes Hx Hypercholesterolemia: Yes (ON MED) Hx Pacemaker: No HX Cerebrovascular Accident: No Hx Seizures: No Hx Dementia: No Hx Diabetes: No Hx Gastrointestinal Disorders: No Hx Liver Disease: No Hx Genitourinary Disorders: No Hx Sexually Transmitted Disorders: Yes (GC) Hx Renal Disease (ESRD): No Hx Thyroid Disease: No Hx Human Immunodeficiency Virus (HIV): No Hx Hepatitis C: Yes (tx'ed ) Hx Depression: Yes Hx Suicide Attempt: No (denies) Hx Bipolar Disorder: No Hx Schizophrenia: No Other Medical History: ? SLE not sure - Patient Surgical History Past Surgical History: No Hx Neurologic Surgery: No Hx Cataract Extraction: No Hx Cardiac Surgery: No Hx Lung Surgery: No Hx Breast Surgery: No Hx Breast Biopsy: No Hx Abdominal Surgery: No Hx Appendectomy: No Hx Cholecystectomy: No Hx Genitourinary Surgery: No Hx Section: No Hx Orthopedic Surgery: No Anesthesia Reaction: No - PPD History Previous Implant?: Yes Documented Results: Negative w/proof Date: 08/30/15 Results: 0 mm PPD to be Administered?: No - Smoking Cessation Smoking history: Current every day smoker Have you smoked in the past 12 months: Yes Aproximately how many cigarettes per day: 20 Cigars Per Day: 0 Hx Chewing Tobacco Use: No Initiated information on smoking cessation: Yes 'Breaking Loose' booklet given: 06/07/16 - Substance & Tx. History Hx Alcohol Use: Yes Hx Substance Use: Yes Substance Use Type: Alcohol, Heroin Hx Substance Use Treatment: Yes (Detox) - Substances Abused Alcohol Route: Oral Frequency: Daily Amount used: liquor- 1 pint, beer- 1 six pack Age of first use: 15 Date of Last Use: 06/07/16 Heroin Route: Inhalation Frequency: Daily Amount used: 8 bags Age of first use: 15 Date of Last Use: 06/07/16 Family Disease History - Family Disease History Family Disease History: Heart Disease: Mother (alcohol, htn ,), Other: Father (alcohol), Mother Admission Physical Exam BHS - Vital Signs Vital Signs: Vital Signs - 24 hr 06/07/16 15:54 Temperature 97.5 F L Pulse Rate 69 Respiratory 16 Rate Blood Pressure 134/84 - Physical General Appearance: Yes: Tremorous, Sweating, Anxious HEENTM: Yes: Nasal Congestion, Rhinorrhea Respiratory: Yes: Chest Non-Tender, Lungs Clear, Normal Breath Sounds Neck: Yes: Supple Breast: Yes: Breast Exam Deferred Cardiology: Yes: Regular Rhythm, Regular Rate, S1, S2 Abdominal: Yes: Normal Bowel Sounds, Non Tender, Soft Genitourinary: Yes: Within Normal Limits Back: Yes: Within Normal Limits Musculoskeletal: Yes: Within Normal Limits Extremities: Yes: Tremors Neurological: Yes: Fully Oriented, Alert Integumentary: Yes: Rash (hyperpigmented reash on extremities and trunk) Lymphatic: Yes: Within Normal Limits - Diagnostic (1) Alcohol dependence with uncomplicated withdrawal Current Visit: Yes Status: Acute (2) Nicotine dependence Current Visit: Yes Status: Acute Qualifiers: Nicotine product type: cigarettes Substance use status: uncomplicated Qualified Code(s): F17.210 - Nicotine dependence, cigarettes, uncomplicated (3) Opioid dependence with withdrawal Current Visit: Yes Status: Acute (4) Hypertension Current Visit: No Status: Chronic Qualifiers: Hypertension type: essential hypertension Qualified Code(s): I10 - Essential (primary) hypertension (5) Lupus (systemic lupus erythematosus) Current Visit: Yes Status: Chronic Qualifiers: Systemic lupus erythematosus type: unspecified Systemic lupus erythematosus organ involvement: unspecified Qualified Code(s): M32.9 - Systemic lupus erythematosus, unspecified Cleared for Admission BHS - Detox or Rehab S Level of Care: Medically Managed Detox Regimen/Protocol: Methadone/Librium BHS Breath Alcohol Content Breath Alcohol Content: 0 Urine Drug Screen - Results Drug Screen Negative: No Urine Drug Screen Results: OPI-Opiates, BZO-Benzodiazepines, MTD-Methadone, OXY- Oxycodone
[2016-06-07] MEDS ORDERED: MAGNESIUM CITRATE 300 ML BOTTLE PO PRN (16:29)
[2016-06-07] MEDS ORDERED: IBUPROFEN 400 MG TABLET (FP) PO PRN (16:29)
[2016-06-07] MEDS ORDERED: diphenhydrAMINE HCL 50 MG CAPSULE PO PRN (16:29)
[2016-06-07] MEDS ORDERED: hydrOXYzine PAMOATE 50 MG CAPSULE (FP) PO PRN (16:29)
[2016-06-07] MEDS ORDERED: guaiFENesin/D-METHORPHAN HB 10 ML UNIT-DOSE CUPS PO PRN (16:29)
[2016-06-07] MEDS ORDERED: MAG HYDROX/AL HYDROX/SIMETH 30 ML UNIT-DOSE CUP PO PRN (16:29)
[2016-06-07] MEDS ORDERED: MENTHOL/PHENOL 1 EACH UD MM PRN (16:29)
[2016-06-07] MEDS ORDERED: P-EPHED 60MG/TRIPROLIDI 2.5MG TABLET PO PRN (16:29)
[2016-06-07] MEDS ORDERED: chlordiazePOXIDE HCL 25 MG CAPSULE PO PRN (16:29)
[2016-06-07] MEDS ORDERED: METHADONE HCL 10 MG TABLET (FOR DETOX USE ONLY) PO ONE ×2 (16:29→23:00)
[2016-06-07] MEDS ORDERED: ACETAMINOPHEN 325 MG TABLET (FP) PO PRN (16:29)
[2016-06-07] MEDS ORDERED: MAGNESIUM HYDROX 2400MG/30ML ORAL SUSPENSION 30 ML CUP PO PRN (16:29)
[2016-06-07] MEDS ORDERED: NICOTINE POLACRILEX 2 MG GUM BC PRN (16:29)
[2016-06-07] MEDS ORDERED: chlordiazePOXIDE HCL 25 MG CAPSULE PO ONE (16:29)
[2016-06-07] MEDS ORDERED: LOPERAMIDE HCL 2 MG CAPSULE PO PRN (16:29)
[2016-06-07] MEDS: amLODIPine BESYLATE 5 MG TABLET (FP) PO SCH (18:23)
[2016-06-07] MEDS: NICOTINE 21 MG/24 HOURS TOPICAL PATCH TD SCH (18:25)
[2016-06-07] MEDS: chlordiazePOXIDE HCL 25 MG CAPSULE PO SCH ×2 (18:29→22:44)
[2016-06-07] MEDS: THIAMINE HCL 100 MG TABLET (FP) PO SCH (22:43)
[2016-06-07] MEDS: ATORVASTATIN CA 40 MG TABLET (FP) PO SCH (22:44)
[2016-06-08] MEDS: chlordiazePOXIDE HCL 25 MG CAPSULE PO SCH ×4 (05:51→22:41)
[2016-06-08] MEDS ORDERED: METHADONE HCL 10 MG TABLET (FOR DETOX USE ONLY) PO SCH (10:00)
[2016-06-08] MEDS: PRENATAL VITAMINS W/ FOLIC ACID TABLET (FP) PO SCH (10:30)
[2016-06-08] MEDS: ASPIRIN 81 MG CHEWABLE TABLETS PO SCH (10:30)
[2016-06-08] MEDS: amLODIPine BESYLATE 5 MG TABLET (FP) PO SCH (10:30)
[2016-06-08] MEDS: NICOTINE 21 MG/24 HOURS TOPICAL PATCH TD SCH (10:32)
[2016-06-08 10:53] LABS: MCH 29.7 pg (25.7-33.7); MCHC 34.8 g/dl (32.0-35.9); MEAN CELL VOLUME 85.6 fl (80-96); MEAN PLT VOLUME 7.5 fl (7.5-11.1); PLATELET COUNT 225 K/MM3 (134-434); RDW 13.3 % (11.9-15.9); WHITE BLOOD COUNT 4.3 K/mm3 (4.0-10.0)
[2016-06-08 10:57] LABS: URINE APPEARANCE CLEAR; URINE BILIRUBIN NEGATIVE (NEGATIVE); URINE BLOOD NEGATIVE (NEGATIVE); URINE COLOR STRAW; URINE GLUCOSE (UA) NEGATIVE (NEGATIVE); URINE KETONE NEGATIVE (NEGATIVE); URINE LEUK ESTERASE NEGATIVE (NEGATIVE); URINE NITRITE NEGATIVE (NEGATIVE); URINE PROTEIN NEGATIVE (NEGATIVE); URINE UROBILINOGEN NEGATIVE E.U./dl (0.2-1.0)
[2016-06-08 11:04] LABS: ALBUMIN 3.7 g/dl (3.4-5.0); ALK PHOS 91 U/L (45-117); ANION GAP 8 (8-16); BILIRUBIN,TOTAL 0.3 mg/dL (0.2-1.0); CALCIUM 8.7 mg/dL (8.5-10.1); CO2 32 mmol/L (21-32); CREATININE 0.7 mg/dL (0.7-1.3); GLUCOSE,RANDOM 91 mg/dL (74-106); SGPT/ALT 59 U/L (12-78); TOT PROT 6.5 g/dl (6.4-8.2)
[2016-06-08 11:10] LABS: SGOT/AST 28 U/L (15-37)
--- NOTE | 2016-06-08 11:42 | PN ---
S CIWA - CIWA Score Nausea/Vomitin-No Nausea/No Vomiting Muscle Tremors: 4-Moderate,w/Arms Extend Anxiety: 4-Mod. Anxious/Guarded Agitation: 3 Paroxysmal Sweats: 3 Orientation: 0-Oriented Tacttile Disturbances: 1-Very Mild Itch/Numbness Auditory Disturbances: 0-None Visual Disturbances: 0-None Headache: 0-None Present CIWA-Ar Total Score: 15 BHS Progress Note (SOAP) Subjective: Anxiety,tremors,sweating,interrupted sleep,restless Objective: 06/08/16 11:37 Vital Signs - 8 hr 06/08/16 06/08/16 06:27 09:38 Temperature 96.6 F L 97.5 F L Pulse Rate 76 76 Respiratory 16 16 Rate Blood Pressure 111/79 118/81 Laboratory Tests 06/08/16 06/08/16 06/08/16 07:30 07:30 07:30 WBC 4.3 RBC 4.64 Hgb 13.8 Hct 39.7 MCV 85.6 MCHC 34.8 RDW 13.3 Plt Count 225 D MPV 7.5 Sodium 141 Potassium 3.9 Chloride 101 Carbon Dioxide 32 D Anion Gap 8 BUN 10 D Creatinine 0.7 Creat Clearance w eGFR > 60 Random Glucose 91 Calcium 8.7 Total Bilirubin 0.3 D AST 28 D ALT 59 D Alkaline Phosphatase 91 Total Protein 6.5 Albumin 3.7 Urine Color Straw Urine Appearance Clear Urine pH 5.0 Ur Specific [place] 1.008 Urine Protein Negative Urine Glucose (UA) Negative Urine Ketones Negative Urine Blood Negative Urine Nitrite Negative Urine Bilirubin Negative Urine Urobilinogen Negative Ur Leukocyte Esterase Negative labs noted Assessment: 06/08/16 11:42 Withdrawal sx. Plan: Continue detox
--- NOTE | 2016-06-08 22:31 | EKG ---
Test Reason : Blood Pressure : / mmHG Vent. Rate : 068 BPM Atrial Rate : 068 BPM P-R Int : 152 ms QRS Dur : 080 ms QT Int : 402 ms P-R-T Axes : 000 102 012 degrees QTc Int : 427 ms NORMAL SINUS RHYTHM RIGHTWARD AXIS BORDERLINE ECG WHEN COMPARED WITH ECG OF 29-APR-2016 16:58, QUESTIONABLE CHANGE IN QRS AXIS ST NO LONGER DEPRESSED IN INFERIOR LEADS NON-SPECIFIC CHANGE IN ST SEGMENT IN LATERAL LEADS Confirmed by CAMILO BURNS MD ([id number]) on 06/08/2016 10:31:04 PM Referred By: Confirmed By:CAMILO BURNS MD
[2016-06-08] MEDS: ATORVASTATIN CA 40 MG TABLET (FP) PO SCH (22:41)
[2016-06-08] MEDS: THIAMINE HCL 100 MG TABLET (FP) PO SCH (22:41)
[2016-06-09] MEDS: chlordiazePOXIDE HCL 25 MG CAPSULE PO SCH ×2 (05:50→10:38)
--- NOTE | 2016-06-09 10:20 | CONSULT ---
[facility] Psychiatric Consult - Data Date of interview: 06/09/16 Admission source: [facility] Identifying data: Another admission to [facility] for this 56 y/o male seeking detox treatment on for alcohol and heroin dependence.Patient is ,a father of one, domiciled,unemployed and supported on SSI benefits. Substance Abuse History: - Smoking Cessation. Smoking history: Current every day smoker. Have you smoked in the past 12 months: Yes. Aproximately how many cigarettes per day: 20. Cigars Per Day: 0. Hx Chewing Tobacco Use: No. Initiated information on smoking cessation: Yes. 'Breaking Loose' booklet given : 06/07/16. - Substance & Tx. History. Hx Alcohol Use: Yes. Hx Substance Use : Yes. Substance Use Type: Alcohol, Heroin. Hx Substance Use Treatment: Yes ( Detox). - Substances Abused. Alcohol. Route: Oral. Frequency: Daily. Amount used: liquor- 1 pint, beer- 1 six pack. Age of first use: 15. Date of Last Use: 06/07/16. Heroin. Route: Inhalation. Frequency: Daily. Amount used: 8 bags. Age of first use: 15. Date of Last Use: 06/07/16. Confirmed by patient. Medical History: Arthritis,hepatitis C,decreased hearing,lupus and hypertension. Psychiatric History: History of multiple psychiatric hospitalizations.Diagnosed with MDD.Chronic history of non-adherence to medications/aftercare.Patient states that he gets his OPD care at the [facility].Prescribed seroquel 300 mg/hs + trazodone 100 mg/hs + bupropion 75 mg bid.Verified by pharmacy claims of 06/04/16 @ [facility].No reported history of suicide attempts. Physical/Sexual Abuse/Trauma History: Patient denies. Additional Comment: Urine Drug Screen Results: OPI-Opiates, BZO-Benzodiazepines , MTD-Methadone, OXY-Oxycodone.Noted. Mental Status Exam - Mental Status Exam Alert and Oriented to: Time, Place, Person Cognitive Function: Grossly Intact Patient Appearance: Well Groomed Mood: Withdrawn, Anxious, Apprehensive, Irritable Affect: Mood Congruent Patient Behavior: Fatigued, Cooperative Speech Pattern: Clear Voice Loudness: Normal Thought Process: Goal Oriented Thought Disorder: Not Present Hallucinations: Denies Suicidal Ideation: Denies Homicidal Ideation: Denies Insight/Judgement: Poor Sleep: Poorly, Difficulty falling asleep Appetite: Good Muscle strength/Tone: Normal Gait/Station: Normal Psychiatric Findings - Problem List ([place] 1, 2,3) (1) Alcohol dependence with uncomplicated withdrawal Current Visit: Yes Status: Acute (2) Opioid dependence with withdrawal Current Visit: Yes Status: Acute (3) Nicotine dependence Current Visit: Yes Status: Acute Qualifiers: Nicotine product type: cigarettes Substance use status: uncomplicated Qualified Code(s): F17.210 - Nicotine dependence, cigarettes, uncomplicated (4) Substance induced mood disorder Current Visit: Yes Status: Acute (5) Depressive disorder Current Visit: Yes Status: Chronic (6) Lupus (systemic lupus erythematosus) Current Visit: Yes Status: Chronic Qualifiers: Systemic lupus erythematosus type: unspecified Systemic lupus erythematosus organ involvement: unspecified Qualified Code(s): M32.9 - Systemic lupus erythematosus, unspecified (7) Hypertension Current Visit: Yes Status: Chronic Qualifiers: Hypertension type: essential hypertension Qualified Code(s): I10 - Essential (primary) hypertension (8) Insomnia Current Visit: Yes Status: Chronic - Initial Treatment Plan Initial Treatment Plan: Psychoeducation.Detoxification.Medications : trazodone 100 mg po hs + seroquel 50 mg po bid (patient's request) + bupropion 75 mg po bid (second dose no later than 5 pm).Side effects/benefits of each drug discussed with the patient (made aware of risk of seizures,metabolic syndrome, dyskinesias/dystonias,oversedation/falls and priapism).Patient insists on the inclusion of these drugs in the current regime of medications.Observation.NO refills necessary at discharge.
--- NOTE | 2016-06-09 10:26 | PN ---
[facility] CIWA - CIWA Score Nausea/Vomitin-No Nausea/No Vomiting Muscle Tremors: 4-Moderate,w/Arms Extend Anxiety: 3 Agitation: 3 Paroxysmal Sweats: 3 Orientation: 0-Oriented Tacttile Disturbances: 2-Mild Itch/Numbness/Burn Auditory Disturbances: 0-None Visual Disturbances: 0-None Headache: 0-None Present CIWA-Ar Total Score: 15 S COWS - Scale Resting Pulse: 0= MD 80 or Below Sweatin=Flushed/Facial Moisture Restless Observation: 1= Difficult to Sit Still Pupil Size: 0= Normal to Room Light Bone or Joint Aches: 2= Severe Diffuse Aches Runny Nose/ Eye Tearin= Runny Nose/Eyes GI Upset > 30mins: 2= Nausea/Diarrhea Tremor Observation of Outstretched Hands: 2= Slight Tremor Visible Yawning Observation: 1= 1-2x During Session Anxiety or Irritability: 2=Irritable/Anxious Goose Flesh Skin: 0=Smooth Skin COWS Score: 14 [facility] Progress Note (SOAP) Subjective: Anxiety,tremors,sweating,interrupted sleep,restless,muscle aches,itching caused by rash Objective: 06/09/16 10:25 Vital Signs - 8 hr 06/09/16 06/09/16 03:52 06:17 Temperature 97.4 F L Pulse Rate 74 Respiratory 18 18 Rate Blood Pressure 121/76 Laboratory Tests 06/08/16 06/08/16 06/08/16 07:30 07:30 07:30 WBC 4.3 RBC 4.64 Hgb 13.8 Hct 39.7 MCV 85.6 MCHC 34.8 RDW 13.3 Plt Count 225 D MPV 7.5 Sodium 141 Potassium 3.9 Chloride 101 Carbon Dioxide 32 D Anion Gap 8 BUN 10 D Creatinine 0.7 Creat Clearance w eGFR > 60 Random Glucose 91 Calcium 8.7 Total Bilirubin 0.3 D AST 28 D ALT 59 D Alkaline Phosphatase 91 Total Protein 6.5 Albumin 3.7 Urine Color Urine Appearance Urine pH Ur Specific [place] Urine Protein Urine Glucose (UA) Urine Ketones Urine Blood Urine Nitrite Urine Bilirubin Urine Urobilinogen Ur Leukocyte Esterase RPR Titer Nonreactive 06/08/16 07:30 WBC RBC Hgb Hct MCV MCHC RDW Plt Count MPV Sodium Potassium Chloride Carbon Dioxide Anion Gap BUN Creatinine Creat Clearance w eGFR Random Glucose Calcium Total Bilirubin AST ALT Alkaline Phosphatase Total Protein Albumin Urine Color Straw Urine Appearance Clear Urine pH 5.0 Ur Specific [place] 1.008 Urine Protein Negative Urine Glucose (UA) Negative Urine Ketones Negative Urine Blood Negative Urine Nitrite Negative Urine Bilirubin Negative Urine Urobilinogen Negative Ur Leukocyte Esterase Negative RPR Titer labs noted Assessment: 06/09/16 10:25 Withdrawal sx. Plan: Continue detox
[2016-06-09] MEDS: amLODIPine BESYLATE 5 MG TABLET (FP) PO SCH (10:38)
[2016-06-09] MEDS: NICOTINE 21 MG/24 HOURS TOPICAL PATCH TD SCH (10:38)
[2016-06-09] MEDS: PRENATAL VITAMINS W/ FOLIC ACID TABLET (FP) PO SCH (10:38)
[2016-06-09] MEDS: ASPIRIN 81 MG CHEWABLE TABLETS PO SCH (10:38)
[2016-06-09] MEDS: METHADONE HCL 5 MG TABLET (FOR DETOX USE ONLY) PO SCH (10:38)
[2016-06-09] MEDS: TRIAMCINOLONE ACET 0.5% CREAM 15 GM TUBE TP SCH ×3 (15:07→22:49)
[2016-06-09] MEDS: buPROPion HCL 75 MG TABLET PO SCH (17:36)
[2016-06-09] MEDS: chlordiazePOXIDE 5 MG CAPSULE PO SCH ×2 (17:36→22:47)
[2016-06-09] MEDS ORDERED: QUEtiapine FUMARATE 200 MG TABLET PO SCH (22:00)
[2016-06-09] MEDS: THIAMINE HCL 100 MG TABLET (FP) PO SCH (22:47)
[2016-06-09] MEDS: traZODone HCL 100 MG TABLET (FP) PO SCH (22:47)
[2016-06-09] MEDS: QUEtiapine FUMARATE 50 MG TABLET PO SCH (22:47)
[2016-06-09] MEDS: ATORVASTATIN CA 40 MG TABLET (FP) PO SCH (22:50)
[2016-06-10] MEDS: chlordiazePOXIDE 5 MG CAPSULE PO SCH ×2 (05:46→10:40)
[2016-06-10] MEDS: buPROPion HCL 75 MG TABLET PO SCH ×2 (10:40→17:31)
[2016-06-10] MEDS: ASPIRIN 81 MG CHEWABLE TABLETS PO SCH (10:40)
[2016-06-10] MEDS: TRIAMCINOLONE ACET 0.5% CREAM 15 GM TUBE TP SCH ×4 (10:40→22:43)
[2016-06-10] MEDS: METHADONE HCL 5 MG TABLET (FOR DETOX USE ONLY) PO SCH (10:40)
[2016-06-10] MEDS: QUEtiapine FUMARATE 50 MG TABLET PO SCH ×2 (10:41→22:43)
[2016-06-10] MEDS: PRENATAL VITAMINS W/ FOLIC ACID TABLET (FP) PO SCH (10:41)
[2016-06-10] MEDS: NICOTINE 21 MG/24 HOURS TOPICAL PATCH TD SCH (10:41)
[2016-06-10] MEDS: amLODIPine BESYLATE 5 MG TABLET (FP) PO SCH (10:41)
--- NOTE | 2016-06-10 12:36 | PN ---
BHS Progress Note (SOAP) Subjective: Sweating,interrupted sleep,restless Objective: 06/10/16 12:35 Vital Signs - 8 hr 06/10/16 06:06 Temperature 96.8 F L Pulse Rate 79 Respiratory 16 Rate Blood Pressure 97/65 Laboratory Tests 06/08/16 06/08/16 06/08/16 07:30 07:30 07:30 WBC 4.3 RBC 4.64 Hgb 13.8 Hct 39.7 MCV 85.6 MCHC 34.8 RDW 13.3 Plt Count 225 D MPV 7.5 Sodium 141 Potassium 3.9 Chloride 101 Carbon Dioxide 32 D Anion Gap 8 BUN 10 D Creatinine 0.7 Creat Clearance w eGFR > 60 Random Glucose 91 Calcium 8.7 Total Bilirubin 0.3 D AST 28 D ALT 59 D Alkaline Phosphatase 91 Total Protein 6.5 Albumin 3.7 Urine Color Urine Appearance Urine pH Ur Specific [place] Urine Protein Urine Glucose (UA) Urine Ketones Urine Blood Urine Nitrite Urine Bilirubin Urine Urobilinogen Ur Leukocyte Esterase RPR Titer Nonreactive 06/08/16 07:30 WBC RBC Hgb Hct MCV MCHC RDW Plt Count MPV Sodium Potassium Chloride Carbon Dioxide Anion Gap BUN Creatinine Creat Clearance w eGFR Random Glucose Calcium Total Bilirubin AST ALT Alkaline Phosphatase Total Protein Albumin Urine Color Straw Urine Appearance Clear Urine pH 5.0 Ur Specific [place] 1.008 Urine Protein Negative Urine Glucose (UA) Negative Urine Ketones Negative Urine Blood Negative Urine Nitrite Negative Urine Bilirubin Negative Urine Urobilinogen Negative Ur Leukocyte Esterase Negative RPR Titer labs noted Assessment: 06/10/16 12:35 Withdrawal sx. Plan: Continue detox
[2016-06-10] MEDS: chlordiazePOXIDE HCL 10 MG CAPSULE PO SCH ×2 (17:31→22:42)
[2016-06-10] MEDS: traZODone HCL 100 MG TABLET (FP) PO SCH (22:42)
[2016-06-10] MEDS: THIAMINE HCL 100 MG TABLET (FP) PO SCH (22:42)
[2016-06-10] MEDS: ATORVASTATIN CA 40 MG TABLET (FP) PO SCH (22:43)
[2016-06-11] MEDS: chlordiazePOXIDE HCL 10 MG CAPSULE PO SCH ×2 (06:24→11:00)
[2016-06-11] MEDS ORDERED: METHADONE HCL 10 MG TABLET (FOR DETOX USE ONLY) PO SCH (10:00)
[2016-06-11] MEDS: NICOTINE 21 MG/24 HOURS TOPICAL PATCH TD SCH (11:00)
[2016-06-11] MEDS: QUEtiapine FUMARATE 50 MG TABLET PO SCH ×2 (11:00→22:49)
[2016-06-11] MEDS: PRENATAL VITAMINS W/ FOLIC ACID TABLET (FP) PO SCH (11:00)
[2016-06-11] MEDS: ASPIRIN 81 MG CHEWABLE TABLETS PO SCH (11:00)
[2016-06-11] MEDS: buPROPion HCL 75 MG TABLET PO SCH ×2 (11:00→17:39)
[2016-06-11] MEDS: amLODIPine BESYLATE 5 MG TABLET (FP) PO SCH (11:00)
[2016-06-11] MEDS: TRIAMCINOLONE ACET 0.5% CREAM 15 GM TUBE TP SCH ×4 (11:20→22:48)
--- NOTE | 2016-06-11 12:27 | PN ---
BHS Progress Note (SOAP) Subjective: Sweating,interrupted sleep,restless. Objective: 06/11/16 12:26 Vital Signs - 8 hr 06/11/16 06/11/16 06:49 09:15 Temperature 97 F L 98.0 F Pulse Rate 76 80 Respiratory 18 18 Rate Blood Pressure 107/71 116/75 Laboratory Tests 06/08/16 06/08/16 06/08/16 07:30 07:30 07:30 WBC 4.3 RBC 4.64 Hgb 13.8 Hct 39.7 MCV 85.6 MCHC 34.8 RDW 13.3 Plt Count 225 D MPV 7.5 Sodium 141 Potassium 3.9 Chloride 101 Carbon Dioxide 32 D Anion Gap 8 BUN 10 D Creatinine 0.7 Creat Clearance w eGFR > 60 Random Glucose 91 Calcium 8.7 Total Bilirubin 0.3 D AST 28 D ALT 59 D Alkaline Phosphatase 91 Total Protein 6.5 Albumin 3.7 Urine Color Urine Appearance Urine pH Ur Specific [place] Urine Protein Urine Glucose (UA) Urine Ketones Urine Blood Urine Nitrite Urine Bilirubin Urine Urobilinogen Ur Leukocyte Esterase RPR Titer Nonreactive 06/08/16 07:30 WBC RBC Hgb Hct MCV MCHC RDW Plt Count MPV Sodium Potassium Chloride Carbon Dioxide Anion Gap BUN Creatinine Creat Clearance w eGFR Random Glucose Calcium Total Bilirubin AST ALT Alkaline Phosphatase Total Protein Albumin Urine Color Straw Urine Appearance Clear Urine pH 5.0 Ur Specific [place] 1.008 Urine Protein Negative Urine Glucose (UA) Negative Urine Ketones Negative Urine Blood Negative Urine Nitrite Negative Urine Bilirubin Negative Urine Urobilinogen Negative Ur Leukocyte Esterase Negative RPR Titer labs noted Assessment: 06/11/16 12:27 Withdrawal sx. Plan: Continue detox
[2016-06-11] MEDS: traZODone HCL 100 MG TABLET (FP) PO SCH (22:49)
[2016-06-11] MEDS: ATORVASTATIN CA 40 MG TABLET (FP) PO SCH (22:49)
[2016-06-11] MEDS: THIAMINE HCL 100 MG TABLET (FP) PO SCH (22:49)
[2016-06-12] MEDS ORDERED: METHADONE HCL 5 MG TABLET (FOR DETOX USE ONLY) PO SCH (06:00)
[2016-06-12 06:35] VITALS: BP 112/74; PULSE 84; TEMP 97.4
--- NOTE | 2016-06-12 08:42 | PN ---
S Progress Note (SOAP) Subjective: ALERT,NO COMPLAINT Objective: 06/12/16 08:41 Vital Signs Temperature 97.4 F L 06/12/16 06:34 Pulse Rate 84 06/12/16 06:34 Respiratory Rate 18 06/12/16 06:34 Blood Pressure 112/74 06/12/16 06:34 O2 Sat by Pulse Oximetry (%) Assessment: 06/12/16 08:41 DETOX COMPLETED,NO WITHDRAWAL SYMPTOM Plan: DISCHARGE TODAY,FOLLOW UP WITH AFTER CARE PROGRAM ARRANGEMENT
--- NOTE | 2016-06-12 08:45 | DS ---
[facility] Detox Discharge Summary Admission Date: 06/07/16 Discharge Date: 06/12/16 - History Present History: Alcohol Dependence, Opioid Dependence Additional Comments: FOLLOW UP WITH AFTER CARE PROGRAM ARRANGEMENT AND PMD FOR MEDICAL PROBLEM Pertinent Past History: NICOTINE DEPENDENCE HYPERTENSION SLE - Physical Exam Results Vital Signs: Vital Signs Temperature 97.4 F L 06/12/16 06:34 Pulse Rate 84 06/12/16 06:34 Respiratory Rate 18 06/12/16 06:34 Blood Pressure 112/74 06/12/16 06:34 O2 Sat by Pulse Oximetry (%) Pertinent Admission Physical Exam Findings: WITHDRAWAL SYMPTOM - Treatment Hospital Course: Detox Protocol Followed, Detoxed Safely, Responded well, Discharged Condition Good, Rehab Referral Accepted Patient has Accepted a Rehab Referral to: [facility] - Medication Discharge Medications: Ambulatory Orders Zolpidem Tartrate [Ambien] 10 mg PO HS 07/08/13 Amlodipine Besylate [Norvasc -] 5 mg PO DAILY 02/20/16 Aspirin [ASA -] 81 mg PO DAILY 02/20/16 Atorvastatin Ca [Lipitor] 40 mg PO HS 02/20/16 Quetiapine Fumarate [Seroquel] 200 tab PO HS 02/20/16 Trazodone HCl 100 mg PO HS #30 tablet 04/30/16 - AMA Did Patient Leave Against Medical Advice: No
[2016-06-12] MEDS: PRENATAL VITAMINS W/ FOLIC ACID TABLET (FP) PO SCH (10:37)
[2016-06-12] MEDS: amLODIPine BESYLATE 5 MG TABLET (FP) PO SCH (10:37)
[2016-06-12] MEDS: ASPIRIN 81 MG CHEWABLE TABLETS PO SCH (10:37)
[2016-06-12] MEDS: buPROPion HCL 75 MG TABLET PO SCH (10:37)
[2016-06-12] MEDS: NICOTINE 21 MG/24 HOURS TOPICAL PATCH TD SCH (10:38)
[2016-06-12] MEDS: TRIAMCINOLONE ACET 0.5% CREAM 15 GM TUBE TP SCH (10:38)
[2016-06-12] MEDS: QUEtiapine FUMARATE 50 MG TABLET PO SCH (10:38)
== END 2016-06-12 12:50 | disposition home or self-care (01) | DRG 773 ==
LOC: YASAS 15:39 → Y3N 16:02
PROVIDERS: ADMIT Internal Medicine; ATTEND Internal Medicine
PROC: HZ2ZZZZ Detoxification Services for Substance Abuse Treatment (ICD-10-PCS; principal; 2016-06-07)
DX: F11.23 Opioid dependence with withdrawal (principal); F10.230 Alcohol dependence with withdrawal, uncomplicated; F17.210 Nicotine dependence, cigarettes, uncomplicated; F19.24 Other psychoactive substance dependence with psychoactive substance-induced mood disorder; F33.9 Major depressive disorder, recurrent, unspecified; I10 Essential (primary) hypertension; M32.9 Systemic lupus erythematosus, unspecified; B18.2 Chronic viral hepatitis C; G47.00 Insomnia, unspecified; E78.00 Pure hypercholesterolemia, unspecified; Z87.438 Personal history of other diseases of male genital organs
CPT/HCPCS: 36415; 80053; 81003; 85027; 86593; 93005; 93010

== ENCOUNTER 2016-11-19 12:21 | Inpatient (IN) | payer OTHER ==
[2016-11-19 12:58] VITALS: BMI 25.5
--- NOTE | 2016-11-19 14:48 | HP ---
COWS - Scale Resting Pulse: 0= [place] 80 or Below Sweatin=Flushed/Facial Moisture Restless Observation: 1= Difficult to Sit Still Pupil Size: 0= Normal to Room Light Bone or Joint Aches: 2= Severe Diffuse Aches Runny Nose/ Eye Tearin= Runny Nose/Eyes GI Upset > 30mins: 2= Nausea/Diarrhea Tremor Observation: 2= Slight Tremor Visible Yawning Observation: 2= >3x During Session Anxiety or Irritability: 2=Irritable/Anxious Goose Flesh Skin: 3=Piloerection COWS Score: 18 CIWA Score - CIWA Score Nausea/Vomitin-No Nausea/No Vomiting Muscle Tremors: 4-Moderate,w/Arms Extend Anxiety: 3 Agitation: 4-Moderately Restless Paroxysmal Sweats: 3 Orientation: 0-Oriented Tacttile Disturbances: 0-None Auditory Disturbances: 0-None Visual Disturbances: 0-None Headache: 1-Very Mild CIWA-Ar Total Score: 15 Admission ROS S - HPI Allergies/Adverse Reactions: Allergies Allergy/AdvReac Type Severity Reaction Status Date / Time No Known Allergies Allergy Verified 11/19/16 14:16 Exam Limitations: No Limitations - Ebola screening Have you traveled outside of the country in the last 21 days: No Have you had contact with anyone from an Ebola affected area: No Have you been sick,other than usual withdrawal symptoms: No Do you have a fever: No - Review of Systems Constitutional: Chills, Diaphoresis, Night Sweats, Changes in sleep EENT: reports: Nose Congestion Respiratory: reports: No Symptoms reported Cardiac: reports: No Symptoms Reported GI: reports: Nausea, Indigestion : reports: No Symptoms Reported Musculoskeletal: reports: No Symptoms Reported, Back Pain, Joint Pain Integumentary: reports: Flushing, Pruritus (on head and neck), Sweating Neuro: reports: Headache, Tingling, Tremors Endocrine: reports: Excessive Sweating, Flushing, Intolerance to Cold, Intolerance to Heat Hematology: reports: No Symptoms Reported Psychiatric: reports: Judgement Intact, Mood/Affect Appropiate, Orientated x3, Agitated, Anxious Other Systems: Reviewed and Negative Patient History - Patient Medical History Hx Anemia: No Hx Asthma: No Hx Chronic Obstructive Pulmonary Disease (COPD): No Hx Cancer: No Hx Cardiac Disorders: No Hx Congestive Heart Failure: No Hx Hypertension: Yes Hx Hypercholesterolemia: Yes (ON MED) Hx Pacemaker: No HX Cerebrovascular Accident: No Hx Seizures: No Hx Dementia: No Hx Diabetes: No Hx Gastrointestinal Disorders: No Hx Liver Disease: No Hx Genitourinary Disorders: No Hx Sexually Transmitted Disorders: No Hx Renal Disease (ESRD): No Hx Thyroid Disease: No Hx Human Immunodeficiency Virus (HIV): No Hx Hepatitis C: Yes (tx'ed ) Hx Depression: Yes Hx Suicide Attempt: No Hx Bipolar Disorder: No Hx Schizophrenia: No - Patient Surgical History Past Surgical History: No Hx Neurologic Surgery: No Hx Cataract Extraction: No Hx Cardiac Surgery: No Hx Lung Surgery: No Hx Breast Surgery: No Hx Breast Biopsy: No Hx Abdominal Surgery: No Hx Appendectomy: No Hx Cholecystectomy: No Hx Genitourinary Surgery: No Hx Section: No Hx Orthopedic Surgery: No Anesthesia Reaction: No - PPD History Previous Implant?: Yes Documented Results: Negative w/proof Implanted On Prior R Admission?: Yes Date: 08/30/15 Results: 0 mm PPD to be Administered?: No - Reproductive History Patient is a Female of Child Bearing Age (11 -55 yrs old): No - Smoking Cessation Smoking history: Current every day smoker Have you smoked in the past 12 months: Yes Aproximately how many cigarettes per day: 4 Cigars Per Day: 0 Hx Chewing Tobacco Use: No Initiated information on smoking cessation: Yes 'Breaking Loose' booklet given: 11/19/16 - Substance & Tx. History Hx Alcohol Use: Yes Hx Substance Use: Yes Substance Use Type: Alcohol, Heroin Hx Substance Use Treatment: No - Substances Abused Heroin Route: Inhalation Frequency: Daily Amount used: 6-8 bags Age of first use: 14 Date of Last Use: 11/18/16 Cocaine Route: Inhalation Frequency: Daily Amount used: $20 Age of first use: 34 Date of Last Use: 11/18/16 Alcohol-vodka/beer Route: Oral Frequency: Daily Amount used: 1 pt./3-4 (12 oz.) Age of first use: 24 Date of Last Use: 11/19/16 Family Disease History - Family Disease History Family Disease History: Heart Disease: Mother (alcohol, htn ,), Other: Father (alcohol), Mother Admission Physical Exam BHS - Vital Signs Vital Signs: Vital Signs - 24 hr 09/06/17 12:54 Temperature 97.2 F L Pulse Rate 80 Respiratory 18 Rate Blood Pressure 160/96 - Physical General Appearance: Yes: Appropriately Dressed, Moderate Distress, Tremorous, Irritable, Sweating, Anxious HEENTM: Yes: Hearing grossly Normal, Normal Voice, Nasal Congestion Respiratory: Yes: Lungs Clear, Normal Breath Sounds Neck: Yes: No masses,lesions,Nodules Breast: Yes: Within Normal Limits Cardiology: Yes: Regular Rhythm, Regular Rate, S1, S2 Abdominal: Yes: Normal Bowel Sounds, Non Tender Genitourinary: Yes: Within Normal Limits Back: Yes: Normal Inspection Musculoskeletal: Yes: Gait Steady, Back pain Extremities: Yes: Normal Inspection, Tremors Neurological: Yes: Fully Oriented, Alert, Normal Response Integumentary: Yes: Other (rash to groin area rash to scalp area) Lymphatic: Yes: Within Normal Limits - Diagnostic (1) Alcohol dependence with uncomplicated withdrawal Current Visit: Yes Status: Chronic (2) Cocaine dependence Current Visit: Yes Status: Chronic Qualifiers: Substance use status: uncomplicated (3) Nicotine dependence Current Visit: Yes Status: Chronic Qualifiers: Nicotine product type: cigarettes Substance use status: uncomplicated Qualified Code(s): F17.210 - Nicotine dependence, cigarettes, uncomplicated (4) Opioid dependence with withdrawal Current Visit: Yes Status: Chronic (5) Hypertension Current Visit: No Status: Chronic Qualifiers: Hypertension type: essential hypertension (6) Rash and other nonspecific skin eruption Current Visit: Yes Status: Acute Comment: pt has rash to scalp and groin area. Cleared for Admission S - Detox or Rehab [facility] Level of Care: Medically Managed Detox Regimen/Protocol: Methadone/Valium S Breath Alcohol Content Breath Alcohol Content: 0 Urine Drug Screen - Results Drug Screen Negative: No Urine Drug Screen Results: AMBAR-Cocaine, OPI-Opiates
[2016-11-19] MEDS ORDERED: P-EPHED 60MG/TRIPROLIDI 2.5MG TABLET PO PRN (14:55)
[2016-11-19] MEDS ORDERED: NICOTINE POLACRILEX 4 MG GUM BC PRN (14:55)
[2016-11-19] MEDS ORDERED: guaiFENesin/D-METHORPHAN HB 10 ML UNIT-DOSE CUPS PO PRN (14:55)
[2016-11-19] MEDS ORDERED: ACETAMINOPHEN 325 MG TABLET (FP) PO PRN (14:55)
[2016-11-19] MEDS ORDERED: MAGNESIUM CITRATE 300 ML BOTTLE PO PRN (14:55)
[2016-11-19] MEDS ORDERED: MENTHOL/PHENOL 1 EACH UD MM PRN (14:55)
[2016-11-19] MEDS ORDERED: IBUPROFEN 400 MG TABLET (FP) PO PRN (14:55)
[2016-11-19] MEDS ORDERED: diphenhydrAMINE HCL 50 MG CAPSULE PO PRN (14:55)
[2016-11-19] MEDS ORDERED: LOPERAMIDE HCL 2 MG CAPSULE PO PRN (14:55)
[2016-11-19] MEDS ORDERED: MAGNESIUM HYDROX 2400MG/30ML ORAL SUSPENSION 30 ML CUP PO PRN (14:55)
[2016-11-19] MEDS ORDERED: COLLOIDAL OATMEAL 1 BAR EACH TP PRN (15:11)
[2016-11-19] MEDS ORDERED: METHADONE HCL 10 MG TABLET (FOR DETOX USE ONLY) PO ONE ×2 (17:00→23:00)
[2016-11-19] MEDS ORDERED: diazePAM 5 MG TABLET PO ONE (17:00)
[2016-11-19] MEDS ORDERED: FLUOCINONIDE 0.05% CREAM (15 GM TUBE) TP SCH (18:00)
[2016-11-19] MEDS: FLUOCINONIDE 0.05% CREAM (15 GM TUBE) TP SCH ×2 (18:37→22:45)
[2016-11-19] MEDS: MAG HYDROX/AL HYDROX/SIMETH 30 ML UNIT-DOSE CUP PO PRN (20:21)
[2016-11-19 21:50] LABS: URINE APPEARANCE CLEAR; URINE BILIRUBIN NEGATIVE (NEGATIVE); URINE BLOOD NEGATIVE (NEGATIVE); URINE COLOR LTYELLOW; URINE GLUCOSE (UA) NEGATIVE (NEGATIVE); URINE KETONE NEGATIVE (NEGATIVE); URINE LEUK ESTERASE NEGATIVE (NEGATIVE); URINE NITRITE NEGATIVE (NEGATIVE); URINE PROTEIN NEGATIVE (NEGATIVE); URINE UROBILINOGEN NEGATIVE mg/dL (0.2-1.0)
[2016-11-19] MEDS: THIAMINE HCL 100 MG TABLET (FP) PO SCH (22:16)
[2016-11-19] MEDS: diazePAM 5 MG TABLET PO SCH (22:17)
[2016-11-19] MEDS: NYSTATIN 100,000 UNIT/GM TOPICAL CREAM 15 GM TUBE TP SCH (22:44)
[2016-11-19] MEDS: ATORVASTATIN CA 40 MG TABLET (FP) PO SCH (22:44)
[2016-11-20] MEDS: diazePAM 5 MG TABLET PO PRN (01:47)
[2016-11-20] MEDS: diazePAM 5 MG TABLET PO SCH ×3 (06:38→22:23)
--- NOTE | 2016-11-20 08:29 | CONSULT ---
[facility] Psychiatric Consult - Data Date of interview: 11/20/16 Admission source: [facility] Identifying data: This is 56 years old brazilian speaking male with unclear past psychiatric hospitalization history intoxicated with: Alcohol, Heroin, Copcaine and Nicotine Substance Abuse History: - Substance & Tx. History. Hx Alcohol Use: Yes. Hx Substance Use: Yes. Substance Use Type: Alcohol, Heroin. Hx Substance Use Treatment: No. - Substances Abused. Heroin. Route: Inhalation. Frequency : Daily. Amount used: 6-8 bags. Age of first use: 14. Date of Last Use: 11/18. Cocaine. Route: Inhalation. Frequency: Daily. Amount used: $20. Age of first use: 34. Date of Last Use: 11/18/16. Alcohol-vodka/beer. Route: Oral. Frequency: Daily. Amount used: 1 pt./3-4 (12 oz.). Age of first use: 24. Date of Last Use: 11/19/16 Medical History: HTN, Lupus history, Biletral hearing disorder, Hep C+ Psychiatric History: Patient preoccupied with insomnia, reports taking prior to admission Am,laisha 10mg with good response Physical/Sexual Abuse/Trauma History: Denies Additional Comment: Ambien 10mg po qhs Mental Status Exam - Mental Status Exam Alert and Oriented to: Person Cognitive Function: Fair Patient Appearance: Unkempt Mood: Anxious Affect: Mood Congruent Patient Behavior: Cooperative Speech Pattern: Excessive Voice Loudness: Normal, Mildly Loud Thought Process: Goal Oriented Thought Disorder: Being Controlled Hallucinations: Denies Suicidal Ideation: Denies Homicidal Ideation: Denies Insight/Judgement: Fair Sleep: Difficulty falling asleep Appetite: Weight loss Muscle strength/Tone: Normal Gait/Station: Normal Additional Comments: Ambien 10mg po qhs Psychiatric Findings - Problem List ([place] 1, 2,3) (1) Alcohol dependence with uncomplicated withdrawal Current Visit: Yes Status: Chronic (2) Cocaine dependence Current Visit: Yes Status: Chronic Qualifiers: Substance use status: uncomplicated (3) Nicotine dependence Current Visit: Yes Status: Chronic Qualifiers: Nicotine product type: cigarettes Substance use status: uncomplicated Qualified Code(s): F17.210 - Nicotine dependence, cigarettes, uncomplicated (4) Opioid dependence with withdrawal Current Visit: Yes Status: Chronic (5) Substance induced mood disorder Current Visit: No Status: Acute - Initial Treatment Plan Initial Treatment Plan: Ambien 10mg po qhs
[2016-11-20 09:57] LABS: MCH 29.9 pg (25.7-33.7); MCHC 34.2 g/dl (32.0-35.9); MEAN CELL VOLUME 87.4 fl (80-96); PLATELET COUNT 292 K/MM3 (134-434); RDW 13.3 % (11.9-15.9)
[2016-11-20] MEDS ORDERED: METHADONE HCL 10 MG TABLET (FOR DETOX USE ONLY) PO SCH (10:00)
[2016-11-20] MEDS: FLUOCINONIDE 0.05% CREAM (15 GM TUBE) TP SCH ×4 (10:12→22:26)
[2016-11-20] MEDS: amLODIPine BESYLATE 5 MG TABLET (FP) PO SCH (10:13)
[2016-11-20] MEDS: NYSTATIN 100,000 UNIT/GM TOPICAL CREAM 15 GM TUBE TP SCH ×2 (10:13→22:26)
[2016-11-20] MEDS: ASPIRIN 81 MG CHEWABLE TABLETS PO SCH (10:14)
[2016-11-20] MEDS: NICOTINE 21 MG/24 HOURS TOPICAL PATCH TD SCH (10:16)
[2016-11-20] MEDS: PRENATAL VITAMINS W/ FOLIC ACID TABLET (FP) PO SCH (10:18)
[2016-11-20 10:27] LABS: ALBUMIN 4.5 g/dl (3.4-5.0); ALK PHOS 84 U/L (45-117); ANION GAP 7 (8-16); BILIRUBIN,TOTAL 0.7 mg/dL (0.2-1.0); CALCIUM 10.1 mg/dL (8.5-10.1); CO2 31 mmol/L (21-32); CREATININE 0.7 mg/dL (0.7-1.3); GLUCOSE,RANDOM 110 mg/dL (74-106); SGOT/AST 27 U/L (15-37); SGPT/ALT 37 U/L (12-78); TOT PROT 7.7 g/dl (6.4-8.2)
--- NOTE | 2016-11-20 10:40 | PN ---
[facility] CIWA - CIWA Score Nausea/Vomitin-No Nausea/No Vomiting Muscle Tremors: 4-Moderate,w/Arms Extend Anxiety: 4-Mod. Anxious/Guarded Agitation: 4-Moderately Restless Paroxysmal Sweats: 1-Minimal Palms Moist Orientation: 0-Oriented Tacttile Disturbances: 3-Moderate Itch/Numb/Burn Auditory Disturbances: 0-None Visual Disturbances: 0-None Headache: 0-None Present CIWA-Ar Total Score: 16 BHS COWS - Scale Resting Pulse: 0= [place] 80 or Below Sweatin= Chills/Flushing Restless Observation: 3= Extraneous Movement Pupil Size: 0= Normal to Room Light Bone or Joint Aches: 4=Acute Joint/Muscle Pain Runny Nose/ Eye Tearin= Nasal Congestion GI Upset > 30mins: 0= None Tremor Observation of Outstretched Hands: 1= Tremor [place], Not Seen Yawning Observation: 1= 1-2x During Session Anxiety or Irritability: 2=Irritable/Anxious Goose Flesh Skin: 0=Smooth Skin COWS Score: 13 S Progress Note (SOAP) Subjective: ANXIETY,IRRITABILITY,TREMORS,SWEATS,CHRONIC ITCHY SKIN--WAS AT [facility] IN [place] WITH DX PRURITIS AND STILL ITHCHY. Objective: 11/20/16 10:39 Vital Signs Temperature 99.7 F H 11/20/16 09:37 Pulse Rate 74 11/20/16 09:37 Respiratory Rate 18 11/20/16 09:37 Blood Pressure 124/78 11/20/16 09:37 O2 Sat by Pulse Oximetry (%) Laboratory Last Values WBC 6.0 K/mm3 (4.0-10.0) D 11/20/16 06:00 RBC 4.97 M/mm3 (4.00-5.60) 11/20/16 06:00 Hgb 14.9 GM/dL (11.7-16.9) 11/20/16 06:00 Hct 43.5 % (35.4-49) 11/20/16 06:00 MCV 87.4 fl (80-96) 11/20/16 06:00 MCH 29.9 pg (25.7-33.7) 11/20/16 06:00 MCHC 34.2 g/dl (32.0-35.9) 11/20/16 06:00 RDW 13.3 % (11.9-15.9) 11/20/16 06:00 Plt Count 292 K/MM3 (134-434) D 11/20/16 06:00 MPV 8.0 fl (7.5-11.1) 11/20/16 06:00 Urine Color Ltyellow 11/19/16 20:30 Urine Appearance Clear 11/19/16 20:30 Urine pH 7.0 (5.0-8.0) D 11/19/16 20:30 Ur Specific [place] 1.020 (1.005-1.025) 11/19/16 20:30 Urine Protein Negative (NEGATIVE) 11/19/16 20:30 Urine Glucose (UA) Negative (NEGATIVE) 11/19/16 20:30 Urine Ketones Negative (NEGATIVE) 11/19/16 20:30 Urine Blood Negative (NEGATIVE) 11/19/16 20:30 Urine Nitrite Negative (NEGATIVE) 11/19/16 20:30 Urine Bilirubin Negative (NEGATIVE) 11/19/16 20:30 Urine Urobilinogen Negative mg/dL (0.2-1.0) 11/19/16 20:30 Ur Leukocyte Esterase Negative (NEGATIVE) 11/19/16 20:30 Assessment: 11/20/16 10:39 WITHDRAWAL SX PRURITIS Plan: CONTINUE DETOX BENADRYL 25 MG PO TID
--- NOTE | 2016-11-20 12:30 | EKG ---
Test Reason : Blood Pressure : / mmHG Vent. Rate : 073 BPM Atrial Rate : 073 BPM P-R Int : 150 ms QRS Dur : 082 ms QT Int : 356 ms P-R-T Axes : 056 059 -15 degrees QTc Int : 392 ms NORMAL SINUS RHYTHM NONSPECIFIC T WAVE ABNORMALITY ABNORMAL ECG WHEN COMPARED WITH ECG OF 07-JUN-2016 16:53, INVERTED T WAVES HAVE REPLACED NONSPECIFIC T WAVE ABNORMALITY IN INFERIOR LEADS NONSPECIFIC T WAVE ABNORMALITY, WORSE IN ANTEROLATERAL LEADS Confirmed by ZENAIDA COHEN MD ([id number]) on 11/20/2016 12:30:43 PM Referred By: Confirmed By:ZENAIDA COHEN MD
[2016-11-20] MEDS: diphenhydrAMINE HCL 25 MG CAPSULE (FP) PO SCH ×2 (13:27→22:23)
[2016-11-20] MEDS: THIAMINE HCL 100 MG TABLET (FP) PO SCH (22:23)
[2016-11-20] MEDS: ATORVASTATIN CA 40 MG TABLET (FP) PO SCH (22:23)
[2016-11-20] MEDS: ZOLPIDEM TARTRATE 10 MG TABLET (PARK CARE ONLY) PO SCH (22:25)
[2016-11-21] MEDS: diphenhydrAMINE HCL 25 MG CAPSULE (FP) PO SCH ×3 (05:32→22:12)
[2016-11-21] MEDS: diazePAM 5 MG TABLET PO PRN (05:36)
[2016-11-21] MEDS: diazePAM 5 MG TABLET PO SCH ×2 (10:19→22:12)
[2016-11-21] MEDS: METHADONE HCL 5 MG TABLET (FOR DETOX USE ONLY) PO SCH (10:19)
[2016-11-21] MEDS: PRENATAL VITAMINS W/ FOLIC ACID TABLET (FP) PO SCH (10:20)
[2016-11-21] MEDS: ASPIRIN 81 MG CHEWABLE TABLETS PO SCH (10:20)
[2016-11-21] MEDS: amLODIPine BESYLATE 5 MG TABLET (FP) PO SCH (10:20)
[2016-11-21] MEDS: NICOTINE 21 MG/24 HOURS TOPICAL PATCH TD SCH (10:22)
[2016-11-21] MEDS: FLUOCINONIDE 0.05% CREAM (15 GM TUBE) TP SCH ×4 (10:23→22:12)
[2016-11-21] MEDS: NYSTATIN 100,000 UNIT/GM TOPICAL CREAM 15 GM TUBE TP SCH ×2 (10:23→22:11)
--- NOTE | 2016-11-21 11:02 | PN ---
[facility] CIWA - CIWA Score Nausea/Vomitin-No Nausea/No Vomiting Muscle Tremors: 4-Moderate,w/Arms Extend Anxiety: 4-Mod. Anxious/Guarded Agitation: 4-Moderately Restless Paroxysmal Sweats: 1-Minimal Palms Moist Orientation: 0-Oriented Tacttile Disturbances: 3-Moderate Itch/Numb/Burn Auditory Disturbances: 0-None Visual Disturbances: 0-None Headache: 0-None Present CIWA-Ar Total Score: 16 S COWS - Scale Resting Pulse: 0= [place] 80 or Below Sweatin= Chills/Flushing Restless Observation: 3= Extraneous Movement Pupil Size: 0= Normal to Room Light Bone or Joint Aches: 4=Acute Joint/Muscle Pain Runny Nose/ Eye Tearin= Nasal Congestion GI Upset > 30mins: 1= Stomach Cramp Tremor Observation of Outstretched Hands: 1= Tremor [place], Not Seen Yawning Observation: 1= 1-2x During Session Anxiety or Irritability: 1=Feels Anxious/Irritable Goose Flesh Skin: 0=Smooth Skin COWS Score: 13 S Progress Note (SOAP) Subjective: ANXIETY,IRRITABILITY,SWEATS,INTERMITTENT SLEEP. Objective: 11/21/16 11:04 Vital Signs Temperature 96.1 F L 11/21/16 10:21 Pulse Rate 79 11/21/16 10:21 Respiratory Rate 18 11/21/16 10:21 Blood Pressure 134/91 11/21/16 10:21 O2 Sat by Pulse Oximetry (%) Laboratory Last Values WBC 6.0 K/mm3 (4.0-10.0) D 11/20/16 06:00 RBC 4.97 M/mm3 (4.00-5.60) 11/20/16 06:00 Hgb 14.9 GM/dL (11.7-16.9) 11/20/16 06:00 Hct 43.5 % (35.4-49) 11/20/16 06:00 MCV 87.4 fl (80-96) 11/20/16 06:00 MCH 29.9 pg (25.7-33.7) 11/20/16 06:00 MCHC 34.2 g/dl (32.0-35.9) 11/20/16 06:00 RDW 13.3 % (11.9-15.9) 11/20/16 06:00 Plt Count 292 K/MM3 (134-434) D 11/20/16 06:00 MPV 8.0 fl (7.5-11.1) 11/20/16 06:00 Sodium 135 mmol/L (136-145) L 11/20/16 06:00 Potassium 3.9 mmol/L (3.5-5.1) 11/20/16 06:00 Chloride 97 mmol/L (98-107) L 11/20/16 06:00 Carbon Dioxide 31 mmol/L (21-32) 11/20/16 06:00 Anion Gap 7 (8-16) L 11/20/16 06:00 BUN 9 mg/dL (7-18) 11/20/16 06:00 Creatinine 0.7 mg/dL (0.7-1.3) 11/20/16 06:00 Creat Clearance w eGFR > 60 (>60) 11/20/16 06:00 Random Glucose 110 mg/dL (74-106) H D 11/20/16 06:00 Calcium 10.1 mg/dL (8.5-10.1) 11/20/16 06:00 Total Bilirubin 0.7 mg/dL (0.2-1.0) D 11/20/16 06:00 AST 27 U/L (15-37) 11/20/16 06:00 ALT 37 U/L (12-78) D 11/20/16 06:00 Alkaline Phosphatase 84 U/L (45-117) 11/20/16 06:00 Total Protein 7.7 g/dl (6.4-8.2) 11/20/16 06:00 Albumin 4.5 g/dl (3.4-5.0) D 11/20/16 06:00 Urine Color Ltyellow 11/19/16 20:30 Urine Appearance Clear 11/19/16 20:30 Urine pH 7.0 (5.0-8.0) D 11/19/16 20:30 Ur Specific [place] 1.020 (1.005-1.025) 11/19/16 20:30 Urine Protein Negative (NEGATIVE) 11/19/16 20:30 Urine Glucose (UA) Negative (NEGATIVE) 11/19/16 20:30 Urine Ketones Negative (NEGATIVE) 11/19/16 20:30 Urine Blood Negative (NEGATIVE) 11/19/16 20:30 Urine Nitrite Negative (NEGATIVE) 11/19/16 20:30 Urine Bilirubin Negative (NEGATIVE) 11/19/16 20:30 Urine Urobilinogen Negative mg/dL (0.2-1.0) 11/19/16 20:30 Ur Leukocyte Esterase Negative (NEGATIVE) 11/19/16 20:30 RPR Titer Nonreactive (NONREACTIVE) 11/20/16 06:00 Assessment: 11/21/16 11:04 WITHDRAWAL SX Plan: CONTINUE DETOX
[2016-11-21] MEDS: MAG HYDROX/AL HYDROX/SIMETH 30 ML UNIT-DOSE CUP PO PRN (17:29)
[2016-11-21] MEDS: ZOLPIDEM TARTRATE 10 MG TABLET (PARK CARE ONLY) PO SCH (22:12)
[2016-11-21] MEDS: ATORVASTATIN CA 40 MG TABLET (FP) PO SCH (22:12)
[2016-11-21] MEDS: THIAMINE HCL 100 MG TABLET (FP) PO SCH (22:12)
[2016-11-22] MEDS: diazePAM 5 MG TABLET PO PRN (06:12)
[2016-11-22] MEDS: diphenhydrAMINE HCL 25 MG CAPSULE (FP) PO SCH ×3 (06:13→22:44)
[2016-11-22] MEDS: ASPIRIN 81 MG CHEWABLE TABLETS PO SCH (10:54)
[2016-11-22] MEDS: diazePAM 5 MG TABLET PO SCH ×2 (10:55→22:42)
[2016-11-22] MEDS: NYSTATIN 100,000 UNIT/GM TOPICAL CREAM 15 GM TUBE TP SCH ×2 (10:55→22:42)
[2016-11-22] MEDS: PRENATAL VITAMINS W/ FOLIC ACID TABLET (FP) PO SCH (10:55)
[2016-11-22] MEDS: FLUOCINONIDE 0.05% CREAM (15 GM TUBE) TP SCH ×4 (10:55→22:43)
[2016-11-22] MEDS: amLODIPine BESYLATE 5 MG TABLET (FP) PO SCH (10:55)
[2016-11-22] MEDS: METHADONE HCL 5 MG TABLET (FOR DETOX USE ONLY) PO SCH (10:55)
[2016-11-22] MEDS: NICOTINE 21 MG/24 HOURS TOPICAL PATCH TD SCH (10:56)
[2016-11-22] MEDS: hydrOXYzine PAMOATE 50 MG CAPSULE (FP) PO PRN (17:27)
--- NOTE | 2016-11-22 18:52 | PN ---
BHS Progress Note (SOAP) Subjective: Body Aches, Stomach Cramping, Sweating, Interrupted Sleep. Objective: PT. A & O X 3. NO ACUTE DISTRESS. 11/22/16 18:51 Vital Signs Temperature 98.3 F 11/22/16 17:58 Pulse Rate 75 11/22/16 17:58 Respiratory Rate 16 11/22/16 17:58 Blood Pressure 108/62 11/22/16 17:58 O2 Sat by Pulse Oximetry (%) Laboratory Tests 11/19/16 11/20/16 11/20/16 20:30 06:00 06:00 WBC 6.0 D RBC 4.97 Hgb 14.9 Hct 43.5 MCV 87.4 MCH 29.9 MCHC 34.2 RDW 13.3 Plt Count 292 D MPV 8.0 Sodium 135 L Potassium 3.9 Chloride 97 L Carbon Dioxide 31 Anion Gap 7 L BUN 9 Creatinine 0.7 Creat Clearance w eGFR > 60 Random Glucose 110 H D Calcium 10.1 Total Bilirubin 0.7 D AST 27 ALT 37 D Alkaline Phosphatase 84 Total Protein 7.7 Albumin 4.5 D Urine Color Ltyellow Urine Appearance Clear Urine pH 7.0 D Ur Specific [place] 1.020 Urine Protein Negative Urine Glucose (UA) Negative Urine Ketones Negative Urine Blood Negative Urine Nitrite Negative Urine Bilirubin Negative Urine Urobilinogen Negative Ur Leukocyte Esterase Negative RPR Titer 11/20/16 06:00 WBC RBC Hgb Hct MCV MCH MCHC RDW Plt Count MPV Sodium Potassium Chloride Carbon Dioxide Anion Gap BUN Creatinine Creat Clearance w eGFR Random Glucose Calcium Total Bilirubin AST ALT Alkaline Phosphatase Total Protein Albumin Urine Color Urine Appearance Urine pH Ur Specific [place] Urine Protein Urine Glucose (UA) Urine Ketones Urine Blood Urine Nitrite Urine Bilirubin Urine Urobilinogen Ur Leukocyte Esterase RPR Titer Nonreactive labs noted. Assessment: 11/22/16 18:51 WITHDRAWAL SYMPTOMS. Plan: CONTINUE DETOX.
[2016-11-22] MEDS: THIAMINE HCL 100 MG TABLET (FP) PO SCH (22:41)
[2016-11-22] MEDS: ZOLPIDEM TARTRATE 10 MG TABLET (PARK CARE ONLY) PO SCH (22:42)
[2016-11-22] MEDS: ATORVASTATIN CA 40 MG TABLET (FP) PO SCH (22:44)
[2016-11-23] MEDS: diphenhydrAMINE HCL 25 MG CAPSULE (FP) PO SCH ×3 (05:35→22:23)
[2016-11-23] MEDS ORDERED: diazePAM 5 MG TABLET PO SCH (10:00)
[2016-11-23] MEDS ORDERED: METHADONE HCL 10 MG TABLET (FOR DETOX USE ONLY) PO SCH (10:00)
[2016-11-23] MEDS: amLODIPine BESYLATE 5 MG TABLET (FP) PO SCH (10:20)
[2016-11-23] MEDS: ASPIRIN 81 MG CHEWABLE TABLETS PO SCH (10:20)
[2016-11-23] MEDS: PRENATAL VITAMINS W/ FOLIC ACID TABLET (FP) PO SCH (10:20)
[2016-11-23] MEDS: NYSTATIN 100,000 UNIT/GM TOPICAL CREAM 15 GM TUBE TP SCH ×2 (10:21→22:24)
[2016-11-23] MEDS: FLUOCINONIDE 0.05% CREAM (15 GM TUBE) TP SCH ×4 (10:22→22:24)
[2016-11-23] MEDS: NICOTINE 21 MG/24 HOURS TOPICAL PATCH TD SCH (10:23)
[2016-11-23] MEDS: MAG HYDROX/AL HYDROX/SIMETH 30 ML UNIT-DOSE CUP PO PRN (11:13)
--- NOTE | 2016-11-23 14:48 | PN ---
BHS Progress Note (SOAP) Subjective: Sweating, interrupted sleep, anxious Objective: 11/23/16 14:47 Last Vital Signs Temp Pulse Resp BP Pulse Ox 97.7 F 77 18 127/80 11/23/16 13:17 11/23/16 13:17 11/23/16 13:17 11/23/16 13:17 Laboratory Tests 11/19/16 11/20/16 11/20/16 20:30 06:00 06:00 WBC 6.0 D RBC 4.97 Hgb 14.9 Hct 43.5 MCV 87.4 MCH 29.9 MCHC 34.2 RDW 13.3 Plt Count 292 D MPV 8.0 Sodium 135 L Potassium 3.9 Chloride 97 L Carbon Dioxide 31 Anion Gap 7 L BUN 9 Creatinine 0.7 Creat Clearance w eGFR > 60 Random Glucose 110 H D Calcium 10.1 Total Bilirubin 0.7 D AST 27 ALT 37 D Alkaline Phosphatase 84 Total Protein 7.7 Albumin 4.5 D Urine Color Ltyellow Urine Appearance Clear Urine pH 7.0 D Ur Specific [place] 1.020 Urine Protein Negative Urine Glucose (UA) Negative Urine Ketones Negative Urine Blood Negative Urine Nitrite Negative Urine Bilirubin Negative Urine Urobilinogen Negative Ur Leukocyte Esterase Negative RPR Titer 11/20/16 06:00 WBC RBC Hgb Hct MCV MCH MCHC RDW Plt Count MPV Sodium Potassium Chloride Carbon Dioxide Anion Gap BUN Creatinine Creat Clearance w eGFR Random Glucose Calcium Total Bilirubin AST ALT Alkaline Phosphatase Total Protein Albumin Urine Color Urine Appearance Urine pH Ur Specific [place] Urine Protein Urine Glucose (UA) Urine Ketones Urine Blood Urine Nitrite Urine Bilirubin Urine Urobilinogen Ur Leukocyte Esterase RPR Titer Nonreactive Labs noted Assessment: 11/23/16 14:48 Withdrawal symptoms Plan: Continue detox
[2016-11-23] MEDS: THIAMINE HCL 100 MG TABLET (FP) PO SCH (22:23)
[2016-11-23] MEDS: ATORVASTATIN CA 40 MG TABLET (FP) PO SCH (22:23)
[2016-11-23] MEDS: hydrOXYzine PAMOATE 50 MG CAPSULE (FP) PO PRN (22:27)
[2016-11-24] MEDS: diphenhydrAMINE HCL 25 MG CAPSULE (FP) PO SCH (05:01)
[2016-11-24] MEDS ORDERED: METHADONE HCL 5 MG TABLET (FOR DETOX USE ONLY) PO SCH (06:00)
--- NOTE | 2016-11-24 08:31 | DS ---
[facility] Detox Discharge Summary Admission Date: 11/19/16 Discharge Date: 11/24/16 - History Present History: Alcohol Dependence, Opioid Dependence Pertinent Past History: nicotine dependence, anxiety, depression ,insomnia, elevated cholesteraol, lupus , HTN - Physical Exam Results Vital Signs: Vital Signs Temperature 96.5 F L 11/24/16 06:24 Pulse Rate 75 11/24/16 06:24 Respiratory Rate 16 11/24/16 06:24 Blood Pressure 118/72 11/24/16 06:24 O2 Sat by Pulse Oximetry (%) Laboratory Tests 11/19/16 11/20/16 11/20/16 20:30 06:00 06:00 WBC 6.0 D RBC 4.97 Hgb 14.9 Hct 43.5 MCV 87.4 MCH 29.9 MCHC 34.2 RDW 13.3 Plt Count 292 D MPV 8.0 Sodium 135 L Potassium 3.9 Chloride 97 L Carbon Dioxide 31 Anion Gap 7 L BUN 9 Creatinine 0.7 Creat Clearance w eGFR > 60 Random Glucose 110 H D Calcium 10.1 Total Bilirubin 0.7 D AST 27 ALT 37 D Alkaline Phosphatase 84 Total Protein 7.7 Albumin 4.5 D Urine Color Ltyellow Urine Appearance Clear Urine pH 7.0 D Ur Specific [place] 1.020 Urine Protein Negative Urine Glucose (UA) Negative Urine Ketones Negative Urine Blood Negative Urine Nitrite Negative Urine Bilirubin Negative Urine Urobilinogen Negative Ur Leukocyte Esterase Negative RPR Titer 11/20/16 06:00 WBC RBC Hgb Hct MCV MCH MCHC RDW Plt Count MPV Sodium Potassium Chloride Carbon Dioxide Anion Gap BUN Creatinine Creat Clearance w eGFR Random Glucose Calcium Total Bilirubin AST ALT Alkaline Phosphatase Total Protein Albumin Urine Color Urine Appearance Urine pH Ur Specific [place] Urine Protein Urine Glucose (UA) Urine Ketones Urine Blood Urine Nitrite Urine Bilirubin Urine Urobilinogen Ur Leukocyte Esterase RPR Titer Nonreactive Pertinent Admission Physical Exam Findings: withdrawal sx - Treatment Hospital Course: Detox Protocol Followed, Detoxed Safely, Responded well, Discharged Condition Good, Rehab Referral Accepted - Medication Discharge Medications: Ambulatory Orders Zolpidem Tartrate [Ambien] 10 mg PO HS 07/08/13 Amlodipine Besylate [Norvasc -] 5 mg PO DAILY #30 tab 06/12/16 Aspirin [ASA -] 81 mg PO DAILY #30 tab 06/12/16 Atorvastatin Ca [Lipitor] 40 mg PO HS #30 tab 06/12/16 Zolpidem Tartrate [Ambien] 10 mg PO HS #14 tablet MDD 10 11/20/16 - Diagnosis (1) Hypercholesterolemia Current Visit: Yes Status: Chronic (2) Opioid dependence with withdrawal Current Visit: Yes Status: Chronic (3) Rash and other nonspecific skin eruption Current Visit: Yes Status: Acute (4) Alcohol dependence with uncomplicated withdrawal Current Visit: Yes Status: Chronic (5) Cocaine dependence Current Visit: Yes Status: Chronic Qualifiers: Substance use status: uncomplicated Qualified Code(s): F14.20 - Cocaine dependence, uncomplicated (6) Hypertension Current Visit: Yes Status: Chronic Qualifiers: Hypertension type: essential hypertension Qualified Code(s): I10 - Essential (primary) hypertension (7) Lupus (systemic lupus erythematosus) Current Visit: Yes Status: Chronic Qualifiers: Systemic lupus erythematosus type: unspecified Systemic lupus erythematosus organ involvement: unspecified Qualified Code(s): M32.9 - Systemic lupus erythematosus, unspecified (8) Nicotine dependence Current Visit: Yes Status: Chronic Qualifiers: Nicotine product type: cigarettes Substance use status: uncomplicated Qualified Code(s): F17.210 - Nicotine dependence, cigarettes, uncomplicated (9) Substance induced mood disorder Current Visit: Yes Status: Acute (10) Insomnia Current Visit: Yes Status: Acute - AMA Did Patient Leave Against Medical Advice: No
[2016-11-24 09:10] VITALS: BP 125/77; PULSE 79; TEMP 97.9
[2016-11-24] MEDS: amLODIPine BESYLATE 5 MG TABLET (FP) PO SCH (10:21)
[2016-11-24] MEDS: PRENATAL VITAMINS W/ FOLIC ACID TABLET (FP) PO SCH (10:21)
[2016-11-24] MEDS: NICOTINE 21 MG/24 HOURS TOPICAL PATCH TD SCH (10:22)
[2016-11-24] MEDS: ASPIRIN 81 MG CHEWABLE TABLETS PO SCH (10:23)
[2016-11-24] MEDS: FLUOCINONIDE 0.05% CREAM (15 GM TUBE) TP SCH (10:23)
[2016-11-24] MEDS: NYSTATIN 100,000 UNIT/GM TOPICAL CREAM 15 GM TUBE TP SCH (10:23)
[2016-11-24] MEDS ORDERED: SENNOSIDES 8.6MG TABLET (FP) PO ONE (10:45)
[2016-11-24] MEDS ORDERED: DOCUSATE SODIUM 100 MG CAPSULE (FP) PO ONE (10:45)
== END 2016-11-24 12:57 | disposition home or self-care (01) | DRG 773 ==
LOC: YASAS 12:21 → Y3N 16:44
PROVIDERS: ADMIT Internal Medicine Addiction Medicine; ATTEND Internal Medicine Addiction Medicine
PROC: HZ2ZZZZ Detoxification Services for Substance Abuse Treatment (ICD-10-PCS; principal; 2016-11-19)
DX: F11.23 Opioid dependence with withdrawal (principal); F10.230 Alcohol dependence with withdrawal, uncomplicated; F14.20 Cocaine dependence, uncomplicated; F17.210 Nicotine dependence, cigarettes, uncomplicated; F19.24 Other psychoactive substance dependence with psychoactive substance-induced mood disorder; I10 Essential (primary) hypertension; G47.00 Insomnia, unspecified; R21 Rash and other nonspecific skin eruption; E78.00 Pure hypercholesterolemia, unspecified; M32.9 Systemic lupus erythematosus, unspecified; L29.9 Pruritus, unspecified; Z86.19 Personal history of other infectious and parasitic diseases
CPT/HCPCS: 36415; 71020-TC; 80053; 81003; 85027; 86593; 93005; 93010

== ENCOUNTER 2017-05-09 10:18 | Inpatient (IN) | payer OTHER ==
[2017-05-09 10:36] VITALS: BMI 30.4
--- NOTE | 2017-05-09 10:49 | HP ---
COWS - Scale Resting Pulse: 1= [place] 81-100 Sweatin= Chills/Flushing Restless Observation: 0= Sits Still Pupil Size: 0= Normal to Room Light Bone or Joint Aches: 1= Mild Discomfort Runny Nose/ Eye Tearin= Nasal Congestion GI Upset > 30mins: 1= Stomach Cramp Tremor Observation: 1= Tremor What Cheer, Not Seen Yawning Observation: 1= 1-2x During Session Anxiety or Irritability: 1=Feels Anxious/Irritable Goose Flesh Skin: 0=Smooth Skin COWS Score: 8 Admission ROS S - HPI Chief Complaint: I want to detox from heroin and cocaine Allergies/Adverse Reactions: Allergies Allergy/AdvReac Type Severity Reaction Status Date / Time No Known Allergies Allergy Verified 05/09/17 10:34 History of Present Illness: 57 yo gentleman here for detox from heroin, cocaine - one of multiple times in detox. No seizures but does have black outs. Noted methadone in urine tox - states he took street methadone once or twice - thinks 5mg. Although urine tox + benzo he states he does not use it, maybe mixed with heroin. Exam Limitations: Clinical Condition - Ebola screening Have you traveled outside of the country in the last 21 days: No (N) Have you had contact with anyone from an Ebola affected area: No Have you been sick,other than usual withdrawal symptoms: No Do you have a fever: No - Review of Systems Constitutional: Chills, Loss of Appetite, Night Sweats, Changes in sleep EENT: reports: Blurred Vision, Nose Congestion Respiratory: reports: No Symptoms reported GI: reports: Poor Appetite, Vomiting : reports: No Symptoms Reported Musculoskeletal: reports: Back Pain Integumentary: reports: No Symptoms Reported Neuro: reports: Headache Endocrine: reports: No Symptoms Reported Hematology: reports: No Symptoms Reported Psychiatric: reports: Judgement Intact, Mood/Affect Appropiate, Orientated x3, Anxious Other Systems: Reviewed and Negative Patient History - Patient Medical History Hx Anemia: No Hx Asthma: No Hx Chronic Obstructive Pulmonary Disease (COPD): No Hx Cancer: No Hx Cardiac Disorders: No Hx Congestive Heart Failure: No Hx Hypertension: Yes Hx Hypercholesterolemia: Yes (ON MED) Hx Pacemaker: No HX Cerebrovascular Accident: No Hx Seizures: No Hx Dementia: No Hx Diabetes: No Hx Gastrointestinal Disorders: No Hx Liver Disease: No Hx Genitourinary Disorders: No Hx Sexually Transmitted Disorders: No Hx Renal Disease (ESRD): No Hx Thyroid Disease: No Hx Human Immunodeficiency Virus (HIV): No Hx Hepatitis C: Yes (tx'ed ) Hx Depression: Yes Hx Suicide Attempt: No Hx Bipolar Disorder: No Hx Schizophrenia: No Other Medical History: PPD+, possible Lupus - states he is not sure, one doctor said he does not h - Patient Surgical History Past Surgical History: No Hx Neurologic Surgery: No Hx Cataract Extraction: No Hx Cardiac Surgery: No Hx Lung Surgery: No Hx Breast Surgery: No Hx Breast Biopsy: No Hx Abdominal Surgery: No Hx Appendectomy: No Hx Cholecystectomy: No Hx Genitourinary Surgery: No Hx Section: No Hx Orthopedic Surgery: No Anesthesia Reaction: No - PPD History Previous Implant?: Yes Documented Results: Positive w/proof Implanted On Prior [facility] Admission?: Yes Date: 11/21/16 (CXR negative) PPD to be Administered?: No - Reproductive History Patient is a Female of Child Bearing Age (11 -55 yrs old): No (male) - Smoking Cessation Smoking history: Current every day smoker Have you smoked in the past 12 months: Yes Aproximately how many cigarettes per day: 10 Cigars Per Day: 0 Hx Chewing Tobacco Use: No Initiated information on smoking cessation: Yes 'Breaking Loose' booklet given: 05/09/17 - Substance & Tx. History Hx Alcohol Use: No Hx Substance Use: Yes Substance Use Type: Cocaine, Heroin, Opiates Hx Substance Use Treatment: Yes (detox, rehab) - Substances Abused Heroin Route: Inhalation Frequency: Daily Amount used: 8-10 bags Age of first use: 14 Date of Last Use: 05/08/17 Cocaine Route: Inhalation Frequency: Daily Amount used: $20-60 Age of first use: 14 Date of Last Use: 05/08/17 Non-Rx Methadone Route: Oral Frequency: 1-2 times per week Amount used: 5mg Age of first use: 56 Date of Last Use: 05/06/17 oxycodone Route: Oral Frequency: 1-2 times per week Amount used: 10mg Age of first use: 55 Date of Last Use: 05/06/17 Family Disease History - Family Disease History Family Disease History: Heart Disease: Father (, alcohol), Mother ( alcohol, htn ,), Brother (three living), Other: Father, Mother, Brother , Sister (one living), Daughter (one in [place]) Admission Physical Exam [facility] - Vital Signs Vital Signs: Vital Signs - 24 hr 05/09/17 10:35 Temperature 96.5 F L Pulse Rate 83 Respiratory 20 Rate Blood Pressure 152/90 - Physical General Appearance: Yes: Nourished, Appropriately Dressed, Moderate Distress, Anxious HEENTM: Yes: Hearing grossly Normal, Normocephalic, Normal Voice, Pharynx Normal Respiratory: Yes: No Respiratory Distress, Wheezing Neck: Yes: No masses,lesions,Nodules, Supple Breast: Yes: Breast Exam Deferred Cardiology: Yes: Regular Rhythm, Regular Rate Abdominal: Yes: Flat Genitourinary: Yes: Hesitency Back: Yes: Normal Inspection Musculoskeletal: Yes: full range of Motion, Gait Steady Extremities: Yes: Normal Inspection, Non-Tender Neurological: Yes: Alert, Normal Mood/Affect, Normal Response Integumentary: Yes: Normal Color, Dry, Warm, Rash (several round, flat, hyperpigmented lesions on arms) Lymphatic: Yes: Within Normal Limits - Diagnostic (1) Opioid dependence with withdrawal Current Visit: Yes Status: Chronic (2) Cocaine dependence Current Visit: Yes Status: Chronic Qualifiers: Substance use status: in withdrawal Qualified Code(s): F14.23 - Cocaine dependence with withdrawal (3) PPD positive Current Visit: Yes Status: Acute Comment: chest xray done 11/21/16 normal (4) Nicotine dependence Current Visit: Yes Status: Chronic Qualifiers: Nicotine product type: cigarettes Substance use status: uncomplicated Qualified Code(s): F17.210 - Nicotine dependence, cigarettes, uncomplicated (5) Hypertension Current Visit: Yes Status: Chronic Qualifiers: Hypertension type: essential hypertension Qualified Code(s): I10 - Essential (primary) hypertension (6) Lupus (systemic lupus erythematosus) Current Visit: Yes Status: Suspected Qualifiers: Systemic lupus erythematosus type: unspecified Systemic lupus erythematosus organ involvement: unspecified Qualified Code(s): M32.9 - Systemic lupus erythematosus, unspecified Cleared for Admission [facility] - Detox or Rehab [facility] Level of Care: Medically Managed Detox Regimen/Protocol: Methadone [facility] Breath Alcohol Content Breath Alcohol Content: 0 Urine Drug Screen - Results Drug Screen Negative: No Urine Drug Screen Results: AMBAR-Cocaine, OPI-Opiates, BZO-Benzodiazepines, MTD- Methadone, OXY-Oxycodone
[2017-05-09] MEDS ORDERED: MAGNESIUM CITRATE 300 ML BOTTLE PO PRN (11:09)
[2017-05-09] MEDS ORDERED: MAGNESIUM HYDROX 2400MG/30ML ORAL SUSPENSION 30 ML CUP PO PRN (11:09)
[2017-05-09] MEDS ORDERED: guaiFENesin/D-METHORPHAN HB 10 ML UNIT-DOSE CUPS PO PRN (11:09)
[2017-05-09] MEDS ORDERED: MENTHOL/PHENOL 1 EACH UD MM PRN (11:09)
[2017-05-09] MEDS ORDERED: ACETAMINOPHEN 325 MG TABLET (FP) PO PRN (11:09)
[2017-05-09] MEDS ORDERED: P-EPHED 60MG/TRIPROLIDI 2.5MG TABLET PO PRN (11:09)
[2017-05-09] MEDS ORDERED: LOPERAMIDE HCL 2 MG CAPSULE PO PRN (11:09)
[2017-05-09] MEDS ORDERED: MAG HYDROX/AL HYDROX/SIMETH 30 ML UNIT-DOSE CUP PO PRN (11:09)
[2017-05-09] MEDS ORDERED: COLLOIDAL OATMEAL 1 BAR EACH TP PRN (11:10)
[2017-05-09] MEDS ORDERED: METHADONE HCL 10 MG TABLET (FOR DETOX USE ONLY) PO ONE ×2 (12:00→23:00)
[2017-05-09 13:04] LABS: URINE APPEARANCE CLEAR; URINE BILIRUBIN NEGATIVE (NEGATIVE); URINE BLOOD NEGATIVE (NEGATIVE); URINE COLOR YELLOW; URINE GLUCOSE (UA) NEGATIVE (NEGATIVE); URINE KETONE NEGATIVE (NEGATIVE); URINE LEUK ESTERASE NEGATIVE (NEGATIVE); URINE NITRITE NEGATIVE (NEGATIVE); URINE PROTEIN NEGATIVE (NEGATIVE); URINE UROBILINOGEN NEGATIVE mg/dL (0.2-1.0)
[2017-05-09] MEDS: amLODIPine BESYLATE 5 MG TABLET (FP) PO SCH (13:25)
[2017-05-09] MEDS: diazePAM 5 MG TABLET PO PRN ×2 (13:25→22:25)
[2017-05-09] MEDS: NICOTINE 21 MG/24 HOURS TOPICAL PATCH TD SCH (13:26)
[2017-05-09] MEDS: THIAMINE HCL 100 MG TABLET (FP) PO SCH (22:25)
[2017-05-09] MEDS: ATORVASTATIN CA 40 MG TABLET (FP) PO SCH (22:25)
--- NOTE | 2017-05-09 22:47 | EKG ---
Test Reason : Blood Pressure : / mmHG Vent. Rate : 073 BPM Atrial Rate : 073 BPM P-R Int : 142 ms QRS Dur : 084 ms QT Int : 382 ms P-R-T Axes : 034 044 -06 degrees QTc Int : 420 ms NORMAL SINUS RHYTHM NORMAL ECG WHEN COMPARED WITH ECG OF 19-NOV-2016 18:00, NO SIGNIFICANT CHANGE WAS FOUND Confirmed by MD KAYCEE, YONNY ([id number]) on 05/09/2017 10:47:15 PM Referred By: Confirmed By:YONNY BENOIT MD
[2017-05-10] MEDS: diazePAM 5 MG TABLET PO PRN (06:18)
[2017-05-10 09:58] LABS: HEMATOCRIT 42.6 % (35.4-49); HEMOGLOBIN 14.1 GM/dL (11.7-16.9); MCH 28.4 pg (25.7-33.7); MCHC 33.2 g/dl (32.0-35.9); MEAN CELL VOLUME 85.7 fl (80-96); MEAN PLT VOLUME 7.5 fl (7.5-11.1); PLATELET COUNT 251 K/MM3 (134-434); RBC 4.97 M/mm3 (4.00-5.60); RDW 12.9 % (11.9-15.9); WHITE BLOOD COUNT 4.6 K/mm3 (4.0-10.0)
[2017-05-10] MEDS ORDERED: METHADONE HCL 10 MG TABLET (FOR DETOX USE ONLY) PO ONE (10:00)
[2017-05-10 10:04] LABS: ALBUMIN 3.4 g/dl (3.4-5.0); ANION GAP 6 (8-16); BLOOD UREA NITROGEN 16 mg/dL (7-18); CALCIUM 8.1 mg/dL (8.5-10.1); CHLORIDE 102 mmol/L (98-107); CO2 30 mmol/L (21-32); GLUCOSE,RANDOM 129 mg/dL (74-106); POTASSIUM 3.5 mmol/L (3.5-5.1); SGOT/AST 20 U/L (15-37); SGPT/ALT 35 U/L (12-78); SODIUM 138 mmol/L (136-145)
[2017-05-10 10:08] LABS: ALK PHOS 97 U/L (45-117); BILIRUBIN,TOTAL 0.3 mg/dL (0.2-1.0); TOT PROT 6.6 g/dl (6.4-8.2)
--- NOTE | 2017-05-10 10:47 | CONSULT ---
[facility] Psychiatric Consult - Data Date of interview: 05/10/17 Admission source: Self-referred Identifying data: Mr Mcpherson is a 57 years old male, father of a 22 years old daughter, unemployed on SSI, domiciled seeking detox treatment for opoid, and cocaine Substance Abuse History: Reports history of heroin, oxycondone, street methadone and cocaine use. Refer to addiction counselor's note for further information Medical History: Significant for arthritis, hypertension,hyperlipidemia, decreased hearing, lupus, PPD+, hepatitis C. Smokes 10 cigarettes daily Psychiatric History: Reports being diagnosed with MDD with multiple psychiatric admissions to [facility] and most most recently to [facility]. Chronic history of non-adherence to medications/aftercare. Patient states that he is getting his OPD care at the [facility] clinic and is prescribed Risperdal 3 mg po HS, Remeron 30 mg po HS and Ambien 10 mg po HS. Reports that he stopped taking medications last month. No reported history of suicide attempt. At present, reports feeling well but sleeps poorly Physical/Sexual Abuse/Trauma History: Denies history of emotional, physical or sexual abuse as well as DV relationship Additional Comment: Reports history of one misdemeanor arrest. No probation currently Mental Status Exam - Mental Status Exam Alert and Oriented to: Time, Place, Person Cognitive Function: Fair Patient Appearance: Well Groomed Mood: Hopeful, Euthymic Patient Behavior: Cooperative Speech Pattern: Clear Voice Loudness: Normal Thought Process: Intact, Goal Oriented Thought Disorder: Not Present Hallucinations: Denies Suicidal Ideation: Denies Homicidal Ideation: Denies Insight/Judgement: Poor Sleep: Well Appetite: Poor Muscle strength/Tone: Normal Gait/Station: Normal Psychiatric Findings - Problem List ([place] 1, 2,3) (1) MDD (major depressive disorder), recurrent episode Current Visit: Yes Status: Chronic (2) Substance-induced sleep disorder Current Visit: Yes Status: Acute (3) Opioid dependence with withdrawal Current Visit: Yes Status: Acute (4) Cocaine dependence Current Visit: Yes Status: Acute Qualifiers: Substance use status: in withdrawal Qualified Code(s): F14.23 - Cocaine dependence with withdrawal (5) Nicotine dependence Current Visit: Yes Status: Chronic Qualifiers: Nicotine product type: cigarettes Substance use status: uncomplicated Qualified Code(s): F17.210 - Nicotine dependence, cigarettes, uncomplicated (6) Hypertension Current Visit: Yes Status: Chronic Qualifiers: Hypertension type: essential hypertension Qualified Code(s): I10 - Essential (primary) hypertension (7) Lupus (systemic lupus erythematosus) Current Visit: Yes Status: Chronic Qualifiers: Systemic lupus erythematosus type: unspecified Systemic lupus erythematosus organ involvement: unspecified Qualified Code(s): M32.9 - Systemic lupus erythematosus, unspecified (8) Hypercholesterolemia Current Visit: No Status: Chronic (9) PPD positive Current Visit: Yes Status: Chronic Comment: chest xray done 11/21/16 normal (10) Hepatitis C Current Visit: Yes Status: Chronic - Initial Treatment Plan Initial Treatment Plan: 1) Resume Risperdal 3 mg po HS and Remeron 30 mg po HS. 2) Continue inpatient detoxification
[2017-05-10] MEDS: ASPIRIN 81 MG CHEWABLE TABLETS PO SCH (11:06)
[2017-05-10] MEDS: NICOTINE 21 MG/24 HOURS TOPICAL PATCH TD SCH (11:06)
[2017-05-10] MEDS: amLODIPine BESYLATE 5 MG TABLET (FP) PO SCH (11:06)
[2017-05-10] MEDS: PRENATAL VITAMINS W/ FOLIC ACID TABLET (FP) PO SCH (11:06)
[2017-05-10] MEDS ORDERED: FLU VACCINE QUAD 60 MCG/0.5 ML (MDV 17-18) IM ONE (12:00)
--- NOTE | 2017-05-10 14:32 | PN ---
[facility] COWS - Scale Resting Pulse: 1= [place] 81-100 Sweatin= Chills/Flushing Restless Observation: 1= Difficult to Sit Still Pupil Size: 0= Normal to Room Light Bone or Joint Aches: 2= Severe Diffuse Aches Runny Nose/ Eye Tearin= Nasal Congestion GI Upset > 30mins: 1= Stomach Cramp Tremor Observation of Outstretched Hands: 2= Slight Tremor Visible Yawning Observation: 0= None Anxiety or Irritability: 2=Irritable/Anxious Goose Flesh Skin: 0=Smooth Skin COWS Score: 11 S Progress Note (SOAP) Subjective: joint aches sweat restlessness tremer Objective: 05/10/17 14:30 Vital Signs Temperature 98.1 F 05/10/17 14:16 Pulse Rate 81 05/10/17 14:16 Respiratory Rate 20 05/10/17 14:16 Blood Pressure 138/91 05/10/17 14:16 O2 Sat by Pulse Oximetry (%) Laboratory Last Values WBC 4.6 K/mm3 (4.0-10.0) 05/10/17 07:20 RBC 4.97 M/mm3 (4.00-5.60) 05/10/17 07:20 Hgb 14.1 GM/dL (11.7-16.9) 05/10/17 07:20 Hct 42.6 % (35.4-49) 05/10/17 07:20 MCV 85.7 fl (80-96) 05/10/17 07:20 MCH 28.4 pg (25.7-33.7) 05/10/17 07:20 MCHC 33.2 g/dl (32.0-35.9) 05/10/17 07:20 RDW 12.9 % (11.9-15.9) 05/10/17 07:20 Plt Count 251 K/MM3 (134-434) 05/10/17 07:20 MPV 7.5 fl (7.5-11.1) 05/10/17 07:20 Sodium 138 mmol/L (136-145) 05/10/17 07:20 Potassium 3.5 mmol/L (3.5-5.1) 05/10/17 07:20 Chloride 102 mmol/L (98-107) 05/10/17 07:20 Carbon Dioxide 30 mmol/L (21-32) 05/10/17 07:20 Anion Gap 6 (8-16) L 05/10/17 07:20 BUN 16 mg/dL (7-18) D 05/10/17 07:20 Creatinine 1.0 mg/dL (0.7-1.3) D 05/10/17 07:20 Creat Clearance w eGFR > 60 (>60) 05/10/17 07:20 Random Glucose 129 mg/dL (74-106) H 05/10/17 07:20 Calcium 8.1 mg/dL (8.5-10.1) L 05/10/17 07:20 Total Bilirubin 0.3 mg/dL (0.2-1.0) D 05/10/17 07:20 AST 20 U/L (15-37) D 05/10/17 07:20 ALT 35 U/L (12-78) 05/10/17 07:20 Alkaline Phosphatase 97 U/L (45-117) 05/10/17 07:20 Total Protein 6.6 g/dl (6.4-8.2) 05/10/17 07:20 Albumin 3.4 g/dl (3.4-5.0) D 05/10/17 07:20 Urine Color Yellow 05/09/17 12:03 Urine Appearance Clear 05/09/17 12:03 Urine pH 5.0 (5.0-8.0) D 05/09/17 12:03 Ur Specific [place] 1.028 (1.001-1.035) 05/09/17 12:03 Urine Protein Negative (NEGATIVE) 05/09/17 12:03 Urine Glucose (UA) Negative (NEGATIVE) 05/09/17 12:03 Urine Ketones Negative (NEGATIVE) 05/09/17 12:03 Urine Blood Negative (NEGATIVE) 05/09/17 12:03 Urine Nitrite Negative (NEGATIVE) 05/09/17 12:03 Urine Bilirubin Negative (NEGATIVE) 05/09/17 12:03 Urine Urobilinogen Negative mg/dL (0.2-1.0) 05/09/17 12:03 Ur Leukocyte Esterase Negative (NEGATIVE) 05/09/17 12:03 RPR Titer Nonreactive (NONREACTIVE) 05/10/17 07:20 HIV 1&2 Antibody Screen Negative 05/10/17 07:30 HIV P24 Antigen Negative 05/10/17 07:30 lab noted Assessment: 05/10/17 14:31 withdrawal sx Plan: continue detox
[2017-05-10] MEDS: ATORVASTATIN CA 40 MG TABLET (FP) PO SCH (22:10)
[2017-05-10] MEDS: risperiDONE 1 MG TABLET (FP) PO SCH (22:10)
[2017-05-10] MEDS: THIAMINE HCL 100 MG TABLET (FP) PO SCH (22:10)
[2017-05-10] MEDS: MIRTAZAPINE 30 MG TABLET (FP) PO SCH (22:10)
[2017-05-11] MEDS: diazePAM 5 MG TABLET PO PRN ×2 (06:23→22:31)
[2017-05-11] MEDS ORDERED: METHADONE HCL 5 MG TABLET (FOR DETOX USE ONLY) PO ONE (10:00)
[2017-05-11] MEDS: ASPIRIN 81 MG CHEWABLE TABLETS PO SCH (10:14)
[2017-05-11] MEDS: PRENATAL VITAMINS W/ FOLIC ACID TABLET (FP) PO SCH (10:14)
[2017-05-11] MEDS: amLODIPine BESYLATE 5 MG TABLET (FP) PO SCH (10:14)
[2017-05-11] MEDS: NICOTINE 21 MG/24 HOURS TOPICAL PATCH TD SCH (10:15)
--- NOTE | 2017-05-11 12:04 | PN ---
[facility] COWS - Scale Resting Pulse: 0= [place] 80 or Below Sweatin= Chills/Flushing Restless Observation: 1= Difficult to Sit Still Pupil Size: 0= Normal to Room Light Bone or Joint Aches: 1= Mild Discomfort Runny Nose/ Eye Tearin= Nasal Congestion GI Upset > 30mins: 1= Stomach Cramp Tremor Observation of Outstretched Hands: 2= Slight Tremor Visible Yawning Observation: 1= 1-2x During Session Anxiety or Irritability: 2=Irritable/Anxious Goose Flesh Skin: 0=Smooth Skin COWS Score: 10 BHS Progress Note (SOAP) Subjective: joint ache tremor sweat restlessness irritable Objective: 05/11/17 12:04 Vital Signs Temperature 98.1 F 05/11/17 11:14 Pulse Rate 80 05/11/17 11:14 Respiratory Rate 16 05/11/17 11:14 Blood Pressure 132/93 05/11/17 11:14 O2 Sat by Pulse Oximetry (%) Laboratory Last Values WBC 4.6 K/mm3 (4.0-10.0) 05/10/17 07:20 RBC 4.97 M/mm3 (4.00-5.60) 05/10/17 07:20 Hgb 14.1 GM/dL (11.7-16.9) 05/10/17 07:20 Hct 42.6 % (35.4-49) 05/10/17 07:20 MCV 85.7 fl (80-96) 05/10/17 07:20 MCH 28.4 pg (25.7-33.7) 05/10/17 07:20 MCHC 33.2 g/dl (32.0-35.9) 05/10/17 07:20 RDW 12.9 % (11.9-15.9) 05/10/17 07:20 Plt Count 251 K/MM3 (134-434) 05/10/17 07:20 MPV 7.5 fl (7.5-11.1) 05/10/17 07:20 Sodium 138 mmol/L (136-145) 05/10/17 07:20 Potassium 3.5 mmol/L (3.5-5.1) 05/10/17 07:20 Chloride 102 mmol/L (98-107) 05/10/17 07:20 Carbon Dioxide 30 mmol/L (21-32) 05/10/17 07:20 Anion Gap 6 (8-16) L 05/10/17 07:20 BUN 16 mg/dL (7-18) D 05/10/17 07:20 Creatinine 1.0 mg/dL (0.7-1.3) D 05/10/17 07:20 Creat Clearance w eGFR > 60 (>60) 05/10/17 07:20 Random Glucose 129 mg/dL (74-106) H 05/10/17 07:20 Calcium 8.1 mg/dL (8.5-10.1) L 05/10/17 07:20 Total Bilirubin 0.3 mg/dL (0.2-1.0) D 05/10/17 07:20 AST 20 U/L (15-37) D 05/10/17 07:20 ALT 35 U/L (12-78) 05/10/17 07:20 Alkaline Phosphatase 97 U/L (45-117) 05/10/17 07:20 Total Protein 6.6 g/dl (6.4-8.2) 05/10/17 07:20 Albumin 3.4 g/dl (3.4-5.0) D 05/10/17 07:20 Urine Color Yellow 05/09/17 12:03 Urine Appearance Clear 05/09/17 12:03 Urine pH 5.0 (5.0-8.0) D 05/09/17 12:03 Ur Specific [place] 1.028 (1.001-1.035) 05/09/17 12:03 Urine Protein Negative (NEGATIVE) 05/09/17 12:03 Urine Glucose (UA) Negative (NEGATIVE) 05/09/17 12:03 Urine Ketones Negative (NEGATIVE) 05/09/17 12:03 Urine Blood Negative (NEGATIVE) 05/09/17 12:03 Urine Nitrite Negative (NEGATIVE) 05/09/17 12:03 Urine Bilirubin Negative (NEGATIVE) 05/09/17 12:03 Urine Urobilinogen Negative mg/dL (0.2-1.0) 05/09/17 12:03 Ur Leukocyte Esterase Negative (NEGATIVE) 05/09/17 12:03 RPR Titer Nonreactive (NONREACTIVE) 05/10/17 07:20 HIV 1&2 Antibody Screen Negative 05/10/17 07:30 HIV P24 Antigen Negative 05/10/17 07:30 lab noted Assessment: 05/11/17 12:04 withdrawal sx Plan: continue detox
[2017-05-11] MEDS: MIRTAZAPINE 30 MG TABLET (FP) PO SCH (22:29)
[2017-05-11] MEDS: THIAMINE HCL 100 MG TABLET (FP) PO SCH (22:32)
[2017-05-11] MEDS: risperiDONE 1 MG TABLET (FP) PO SCH (22:32)
[2017-05-11] MEDS: ATORVASTATIN CA 40 MG TABLET (FP) PO SCH (22:32)
[2017-05-11] MEDS: hydrOXYzine PAMOATE 25 MG CAPSULE (FP) PO PRN (22:32)
[2017-05-12] MEDS ORDERED: METHADONE HCL 5 MG TABLET (FOR DETOX USE ONLY) PO ONE (10:00)
[2017-05-12] MEDS: NICOTINE 21 MG/24 HOURS TOPICAL PATCH TD SCH (10:33)
[2017-05-12] MEDS: amLODIPine BESYLATE 5 MG TABLET (FP) PO SCH (10:34)
[2017-05-12] MEDS: ASPIRIN 81 MG CHEWABLE TABLETS PO SCH (10:34)
[2017-05-12] MEDS: PRENATAL VITAMINS W/ FOLIC ACID TABLET (FP) PO SCH (10:34)
--- NOTE | 2017-05-12 11:01 | PN ---
[facility] Progress Note (SOAP) Subjective: GENERAL BODY ACHE SWEAT TREMOR RESTLESSNESS IRRITABLE AGITATION Objective: 05/12/17 11:01 Vital Signs Temperature 97.9 F 05/12/17 10:02 Pulse Rate 77 05/12/17 10:02 Respiratory Rate 18 05/12/17 10:02 Blood Pressure 148/89 05/12/17 10:02 O2 Sat by Pulse Oximetry (%) Laboratory Last Values WBC 4.6 K/mm3 (4.0-10.0) 05/10/17 07:20 RBC 4.97 M/mm3 (4.00-5.60) 05/10/17 07:20 Hgb 14.1 GM/dL (11.7-16.9) 05/10/17 07:20 Hct 42.6 % (35.4-49) 05/10/17 07:20 MCV 85.7 fl (80-96) 05/10/17 07:20 MCH 28.4 pg (25.7-33.7) 05/10/17 07:20 MCHC 33.2 g/dl (32.0-35.9) 05/10/17 07:20 RDW 12.9 % (11.9-15.9) 05/10/17 07:20 Plt Count 251 K/MM3 (134-434) 05/10/17 07:20 MPV 7.5 fl (7.5-11.1) 05/10/17 07:20 Sodium 138 mmol/L (136-145) 05/10/17 07:20 Potassium 3.5 mmol/L (3.5-5.1) 05/10/17 07:20 Chloride 102 mmol/L (98-107) 05/10/17 07:20 Carbon Dioxide 30 mmol/L (21-32) 05/10/17 07:20 Anion Gap 6 (8-16) L 05/10/17 07:20 BUN 16 mg/dL (7-18) D 05/10/17 07:20 Creatinine 1.0 mg/dL (0.7-1.3) D 05/10/17 07:20 Creat Clearance w eGFR > 60 (>60) 05/10/17 07:20 Random Glucose 129 mg/dL (74-106) H 05/10/17 07:20 Calcium 8.1 mg/dL (8.5-10.1) L 05/10/17 07:20 Total Bilirubin 0.3 mg/dL (0.2-1.0) D 05/10/17 07:20 AST 20 U/L (15-37) D 05/10/17 07:20 ALT 35 U/L (12-78) 05/10/17 07:20 Alkaline Phosphatase 97 U/L (45-117) 05/10/17 07:20 Total Protein 6.6 g/dl (6.4-8.2) 05/10/17 07:20 Albumin 3.4 g/dl (3.4-5.0) D 05/10/17 07:20 Urine Color Yellow 05/09/17 12:03 Urine Appearance Clear 05/09/17 12:03 Urine pH 5.0 (5.0-8.0) D 05/09/17 12:03 Ur Specific [place] 1.028 (1.001-1.035) 05/09/17 12:03 Urine Protein Negative (NEGATIVE) 05/09/17 12:03 Urine Glucose (UA) Negative (NEGATIVE) 05/09/17 12:03 Urine Ketones Negative (NEGATIVE) 05/09/17 12:03 Urine Blood Negative (NEGATIVE) 05/09/17 12:03 Urine Nitrite Negative (NEGATIVE) 05/09/17 12:03 Urine Bilirubin Negative (NEGATIVE) 05/09/17 12:03 Urine Urobilinogen Negative mg/dL (0.2-1.0) 05/09/17 12:03 Ur Leukocyte Esterase Negative (NEGATIVE) 05/09/17 12:03 RPR Titer Nonreactive (NONREACTIVE) 05/10/17 07:20 HIV 1&2 Antibody Screen Negative 05/10/17 07:30 HIV P24 Antigen Negative 05/10/17 07:30 LAB NOTED Assessment: 05/12/17 11:01 WITHDRAWAL SX Plan: CONTINUE DETOX
[2017-05-12] MEDS: THIAMINE HCL 100 MG TABLET (FP) PO SCH (22:39)
[2017-05-12] MEDS: ATORVASTATIN CA 40 MG TABLET (FP) PO SCH (22:39)
[2017-05-12] MEDS: MIRTAZAPINE 30 MG TABLET (FP) PO SCH (22:39)
[2017-05-12] MEDS: risperiDONE 1 MG TABLET (FP) PO SCH (22:39)
[2017-05-12] MEDS: hydrOXYzine PAMOATE 25 MG CAPSULE (FP) PO PRN (22:39)
[2017-05-13] MEDS: hydrOXYzine PAMOATE 25 MG CAPSULE (FP) PO PRN ×2 (02:30→22:21)
[2017-05-13] MEDS ORDERED: METHADONE HCL 10 MG TABLET (FOR DETOX USE ONLY) PO ONE (10:00)
--- NOTE | 2017-05-13 10:22 | PN ---
[facility] Progress Note (SOAP) Subjective: alert oriented x 3 calm no sweat less tremor Objective: 05/13/17 10:21 Vital Signs Temperature 98.6 F 05/13/17 09:57 Pulse Rate 95 H 05/13/17 09:57 Respiratory Rate 20 05/13/17 09:57 Blood Pressure 148/78 05/13/17 09:57 O2 Sat by Pulse Oximetry (%) Laboratory Last Values WBC 4.6 K/mm3 (4.0-10.0) 05/10/17 07:20 RBC 4.97 M/mm3 (4.00-5.60) 05/10/17 07:20 Hgb 14.1 GM/dL (11.7-16.9) 05/10/17 07:20 Hct 42.6 % (35.4-49) 05/10/17 07:20 MCV 85.7 fl (80-96) 05/10/17 07:20 MCH 28.4 pg (25.7-33.7) 05/10/17 07:20 MCHC 33.2 g/dl (32.0-35.9) 05/10/17 07:20 RDW 12.9 % (11.9-15.9) 05/10/17 07:20 Plt Count 251 K/MM3 (134-434) 05/10/17 07:20 MPV 7.5 fl (7.5-11.1) 05/10/17 07:20 Sodium 138 mmol/L (136-145) 05/10/17 07:20 Potassium 3.5 mmol/L (3.5-5.1) 05/10/17 07:20 Chloride 102 mmol/L (98-107) 05/10/17 07:20 Carbon Dioxide 30 mmol/L (21-32) 05/10/17 07:20 Anion Gap 6 (8-16) L 05/10/17 07:20 BUN 16 mg/dL (7-18) D 05/10/17 07:20 Creatinine 1.0 mg/dL (0.7-1.3) D 05/10/17 07:20 Creat Clearance w eGFR > 60 (>60) 05/10/17 07:20 Random Glucose 129 mg/dL (74-106) H 05/10/17 07:20 Calcium 8.1 mg/dL (8.5-10.1) L 05/10/17 07:20 Total Bilirubin 0.3 mg/dL (0.2-1.0) D 05/10/17 07:20 AST 20 U/L (15-37) D 05/10/17 07:20 ALT 35 U/L (12-78) 05/10/17 07:20 Alkaline Phosphatase 97 U/L (45-117) 05/10/17 07:20 Total Protein 6.6 g/dl (6.4-8.2) 05/10/17 07:20 Albumin 3.4 g/dl (3.4-5.0) D 05/10/17 07:20 Urine Color Yellow 05/09/17 12:03 Urine Appearance Clear 05/09/17 12:03 Urine pH 5.0 (5.0-8.0) D 05/09/17 12:03 Ur Specific [place] 1.028 (1.001-1.035) 05/09/17 12:03 Urine Protein Negative (NEGATIVE) 05/09/17 12:03 Urine Glucose (UA) Negative (NEGATIVE) 05/09/17 12:03 Urine Ketones Negative (NEGATIVE) 05/09/17 12:03 Urine Blood Negative (NEGATIVE) 05/09/17 12:03 Urine Nitrite Negative (NEGATIVE) 05/09/17 12:03 Urine Bilirubin Negative (NEGATIVE) 05/09/17 12:03 Urine Urobilinogen Negative mg/dL (0.2-1.0) 05/09/17 12:03 Ur Leukocyte Esterase Negative (NEGATIVE) 05/09/17 12:03 RPR Titer Nonreactive (NONREACTIVE) 05/10/17 07:20 HIV 1&2 Antibody Screen Negative 05/10/17 07:30 HIV P24 Antigen Negative 05/10/17 07:30 lab noted Assessment: 05/13/17 10:21 mild withdrawal sx Plan: medically supervised detox
[2017-05-13] MEDS: ASPIRIN 81 MG CHEWABLE TABLETS PO SCH (10:46)
[2017-05-13] MEDS: PRENATAL VITAMINS W/ FOLIC ACID TABLET (FP) PO SCH (10:47)
[2017-05-13] MEDS: amLODIPine BESYLATE 5 MG TABLET (FP) PO SCH (10:47)
[2017-05-13] MEDS: NICOTINE 21 MG/24 HOURS TOPICAL PATCH TD SCH (10:49)
[2017-05-13] MEDS: THIAMINE HCL 100 MG TABLET (FP) PO SCH (22:19)
[2017-05-13] MEDS: ATORVASTATIN CA 40 MG TABLET (FP) PO SCH (22:19)
[2017-05-13] MEDS: MIRTAZAPINE 30 MG TABLET (FP) PO SCH (22:19)
[2017-05-13] MEDS: risperiDONE 1 MG TABLET (FP) PO SCH (22:19)
[2017-05-14] MEDS ORDERED: diphenhydrAMINE HCL 25 MG CAPSULE (FP) PO ONE (01:14)
[2017-05-14] MEDS ORDERED: METHADONE HCL 5 MG TABLET (FOR DETOX USE ONLY) PO ONE (06:00)
--- NOTE | 2017-05-14 09:02 | DS ---
[facility] Detox Discharge Summary Admission Date: 05/09/17 Discharge Date: 05/14/17 - History Present History: Opioid Dependence - Physical Exam Results Vital Signs: Vital Signs Temperature 97.2 F L 05/14/17 06:00 Pulse Rate 76 05/14/17 06:00 Respiratory Rate 18 05/14/17 06:00 Blood Pressure 116/69 05/14/17 06:00 O2 Sat by Pulse Oximetry (%) Pertinent Admission Physical Exam Findings: withdrawal sx Vital Signs Temperature 97.2 F L 05/14/17 06:00 Pulse Rate 76 05/14/17 06:00 Respiratory Rate 18 05/14/17 06:00 Blood Pressure 116/69 05/14/17 06:00 O2 Sat by Pulse Oximetry (%) Laboratory Last Values WBC 4.6 K/mm3 (4.0-10.0) 05/10/17 07:20 RBC 4.97 M/mm3 (4.00-5.60) 05/10/17 07:20 Hgb 14.1 GM/dL (11.7-16.9) 05/10/17 07:20 Hct 42.6 % (35.4-49) 05/10/17 07:20 MCV 85.7 fl (80-96) 05/10/17 07:20 MCH 28.4 pg (25.7-33.7) 05/10/17 07:20 MCHC 33.2 g/dl (32.0-35.9) 05/10/17 07:20 RDW 12.9 % (11.9-15.9) 05/10/17 07:20 Plt Count 251 K/MM3 (134-434) 05/10/17 07:20 MPV 7.5 fl (7.5-11.1) 05/10/17 07:20 Sodium 138 mmol/L (136-145) 05/10/17 07:20 Potassium 3.5 mmol/L (3.5-5.1) 05/10/17 07:20 Chloride 102 mmol/L (98-107) 05/10/17 07:20 Carbon Dioxide 30 mmol/L (21-32) 05/10/17 07:20 Anion Gap 6 (8-16) L 05/10/17 07:20 BUN 16 mg/dL (7-18) D 05/10/17 07:20 Creatinine 1.0 mg/dL (0.7-1.3) D 05/10/17 07:20 Creat Clearance w eGFR > 60 (>60) 05/10/17 07:20 Random Glucose 129 mg/dL (74-106) H 05/10/17 07:20 Calcium 8.1 mg/dL (8.5-10.1) L 05/10/17 07:20 Total Bilirubin 0.3 mg/dL (0.2-1.0) D 05/10/17 07:20 AST 20 U/L (15-37) D 05/10/17 07:20 ALT 35 U/L (12-78) 05/10/17 07:20 Alkaline Phosphatase 97 U/L (45-117) 05/10/17 07:20 Total Protein 6.6 g/dl (6.4-8.2) 05/10/17 07:20 Albumin 3.4 g/dl (3.4-5.0) D 05/10/17 07:20 Urine Color Yellow 05/09/17 12:03 Urine Appearance Clear 05/09/17 12:03 Urine pH 5.0 (5.0-8.0) D 05/09/17 12:03 Ur Specific [place] 1.028 (1.001-1.035) 05/09/17 12:03 Urine Protein Negative (NEGATIVE) 05/09/17 12:03 Urine Glucose (UA) Negative (NEGATIVE) 05/09/17 12:03 Urine Ketones Negative (NEGATIVE) 05/09/17 12:03 Urine Blood Negative (NEGATIVE) 05/09/17 12:03 Urine Nitrite Negative (NEGATIVE) 05/09/17 12:03 Urine Bilirubin Negative (NEGATIVE) 05/09/17 12:03 Urine Urobilinogen Negative mg/dL (0.2-1.0) 05/09/17 12:03 Ur Leukocyte Esterase Negative (NEGATIVE) 05/09/17 12:03 RPR Titer Nonreactive (NONREACTIVE) 05/10/17 07:20 HIV 1&2 Antibody Screen Negative 05/10/17 07:30 HIV P24 Antigen Negative 05/10/17 07:30 lab noted - Treatment Hospital Course: Detox Protocol Followed, Detoxed Safely, Responded well, Discharged Condition Good, Rehab Referral Accepted Patient has Accepted a Rehab Referral to: [facility] - Medication Discharge Medications: Ambulatory Orders Zolpidem Tartrate [Ambien] 10 mg PO HS 07/08/13 Aspirin [ASA -] 81 mg PO DAILY #30 tab 06/12/16 Melatonin 3 mg PO HS 05/09/17 Mirtazapine [Remeron -] 30 mg PO HS #30 tablet 05/10/17 Risperidone [Risperdal -] 3 mg PO HS #30 tablet 05/10/17 Amlodipine Besylate [Norvasc -] 5 mg PO DAILY #30 tab 05/14/17 Atorvastatin Ca [Lipitor] 40 mg PO HS #30 tab 05/14/17 - Diagnosis (1) Opioid dependence with withdrawal Status: Acute (2) Hepatitis C Status: Chronic Qualifiers: Viral hepatitis chronicity: chronic Hepatic coma status: without hepatic coma Qualified Code(s): B18.2 - Chronic viral hepatitis C (3) Hypertension Status: Chronic Qualifiers: Hypertension type: essential hypertension Qualified Code(s): I10 - Essential (primary) hypertension - AMA Did Patient Leave Against Medical Advice: No
[2017-05-14] MEDS: PRENATAL VITAMINS W/ FOLIC ACID TABLET (FP) PO SCH (09:30)
[2017-05-14] MEDS: ASPIRIN 81 MG CHEWABLE TABLETS PO SCH (09:32)
[2017-05-14] MEDS: NICOTINE 21 MG/24 HOURS TOPICAL PATCH TD SCH (09:32)
[2017-05-14] MEDS: amLODIPine BESYLATE 5 MG TABLET (FP) PO SCH (09:32)
[2017-05-14 09:52] VITALS: BP 137/78; PULSE 80; TEMP 96.8
== END 2017-05-14 09:41 | disposition home or self-care (01) | DRG 773 ==
LOC: YASAS 10:18 → Y6N 11:52
PROVIDERS: ADMIT Internal Medicine; ATTEND Internal Medicine
PROC: HZ2ZZZZ Detoxification Services for Substance Abuse Treatment (ICD-10-PCS; principal; 2017-05-09)
DX: F11.23 Opioid dependence with withdrawal (principal); F14.20 Cocaine dependence, uncomplicated; F17.210 Nicotine dependence, cigarettes, uncomplicated; F32.9 Major depressive disorder, single episode, unspecified; F19.282 Other psychoactive substance dependence with psychoactive substance-induced sleep disorder; I10 Essential (primary) hypertension; B18.2 Chronic viral hepatitis C; M32.9 Systemic lupus erythematosus, unspecified; E78.00 Pure hypercholesterolemia, unspecified
CPT/HCPCS: 36415; 80053; 81003; 85027; 86593; 87389; 93005; 93010; J2794

== ENCOUNTER 2017-06-30 11:53 | Inpatient (IN) | payer OTHER ==
[2017-06-30 13:18] VITALS: BMI 31.1
--- NOTE | 2017-06-30 13:28 | HP ---
COWS - Scale Resting Pulse: 1= [place] 81-100 Sweatin=Flushed/Facial Moisture Restless Observation: 3= Extraneous Movement Pupil Size: 2= Moderately Dilated Bone or Joint Aches: 2= Severe Diffuse Aches Runny Nose/ Eye Tearin= Runny Nose/Eyes GI Upset > 30mins: 3= Vomiting/Diarrhea Tremor Observation: 2= Slight Tremor Visible Yawning Observation: 2= >3x During Session Anxiety or Irritability: 2=Irritable/Anxious Goose Flesh Skin: 0=Smooth Skin COWS Score: 21 CIWA Score - CIWA Score Nausea/Vomitin Muscle Tremors: 3 Anxiety: 3 Agitation: 3 Paroxysmal Sweats: 2 Orientation: 0-Oriented Tacttile Disturbances: 2-Mild Itch/Numbness/Burn Auditory Disturbances: 2-Mild Harshness/Frighten Visual Disturbances: 0-None Headache: 2-Mild CIWA-Ar Total Score: 20 Admission ROS BHS - HPI Chief Complaint: i need help to stop drinking alcohol and heroin Allergies/Adverse Reactions: Allergies Allergy/AdvReac Type Severity Reaction Status Date / Time chlordiazepoxide Allergy Severe Itching Verified 06/30/17 15:18 [From Librium] History of Present Illness: this 57 years old male with heroin dependence and alcohol dependence,seeking detox,withdrawal symptom,last detox [facility] 05/09/17 to 05/14/17 weight loss hypertension,hepatitis c anxiety,depression,insomnia low back pian no significant period odf sobriety hearing loss both ears Exam Limitations: No Limitations - Ebola screening Have you traveled outside of the country in the last 21 days: No Have you had contact with anyone from an Ebola affected area: No Have you been sick,other than usual withdrawal symptoms: No Do you have a fever: No - Review of Systems Constitutional: Chills, Loss of Appetite, Malaise, Night Sweats, Changes in sleep, Weakness, Unintentional Wgt. Loss EENT: reports: Tearing, Nose Congestion Respiratory: reports: No Symptoms reported Cardiac: reports: No Symptoms Reported GI: reports: Diarrhea, Nausea, Vomiting, Abdominal cramping Musculoskeletal: reports: Back Pain, Joint Pain, Muscle Pain, Joint Stiffness Integumentary: reports: Dryness Neuro: reports: Headache, Tremors Endocrine: reports: No Symptoms Reported Hematology: reports: No Symptoms Reported Psychiatric: reports: No Sypmtoms Reported, Judgement Intact, Mood/Affect Appropiate, Orientated x3 (insomnia), Anxious, Depressed Patient History - Patient Medical History Hx Anemia: No Hx Asthma: No Hx Chronic Obstructive Pulmonary Disease (COPD): No Hx Cancer: No Hx Cardiac Disorders: No Hx Congestive Heart Failure: No Hx Hypertension: Yes (on med) Hx Hypercholesterolemia: Yes (ON MED) Hx Pacemaker: No HX Cerebrovascular Accident: No Hx Seizures: No Hx Dementia: No Hx Diabetes: No Hx Gastrointestinal Disorders: No Hx Liver Disease: No Hx Genitourinary Disorders: No Hx Sexually Transmitted Disorders: No Hx Renal Disease (ESRD): No Hx Thyroid Disease: No Hx Human Immunodeficiency Virus (HIV): No Hx Hepatitis C: Yes (tx'ed ) Hx Depression: Yes Hx Suicide Attempt: No Hx Bipolar Disorder: No Hx Schizophrenia: No Other Medical History: anxiety,insomnia,low back pain, - Patient Surgical History Past Surgical History: No Hx Neurologic Surgery: No Hx Cataract Extraction: No Hx Cardiac Surgery: No Hx Lung Surgery: No Hx Breast Surgery: No Hx Breast Biopsy: No Hx Abdominal Surgery: No Hx Appendectomy: No Hx Cholecystectomy: No Hx Genitourinary Surgery: No Hx Section: No Hx Orthopedic Surgery: No Anesthesia Reaction: No - PPD History Previous Implant?: Yes Documented Results: Positive w/proof Date: 11/21/16 Results: CXR neg 11/30 PPD to be Administered?: No - Smoking Cessation Smoking history: Current every day smoker Have you smoked in the past 12 months: Yes Aproximately how many cigarettes per day: 10 Cigars Per Day: 0 Hx Chewing Tobacco Use: No Initiated information on smoking cessation: Yes 'Breaking Loose' booklet given: 06/30/17 - Substance & Tx. History Hx Alcohol Use: Yes Hx Substance Use: Yes Substance Use Type: Alcohol, Heroin - Substances Abused Heroin Route: Inhalation Frequency: Daily Amount used: 6 BAGS Age of first use: 15 Date of Last Use: 06/29/17 Alcohol Route: Oral Frequency: Daily Amount used: 3 12 OZ CANS BEER Age of first use: 15 Date of Last Use: 06/30/17 Family Disease History - Family Disease History Family Disease History: Heart Disease: Father (, alcohol), Mother ( alcohol, htn ,), Brother (three living), Other: Father, Mother, Brother , Sister (one living), Daughter (one in [place]) Admission Physical Exam [facility] - Vital Signs Vital Signs: Vital Signs - 24 hr 06/30/17 13:09 Temperature 97.7 F Pulse Rate 85 Respiratory 20 Rate Blood Pressure 142/86 - Physical General Appearance: Yes: Moderate Distress, Tremorous, Irritable, Sweating, Anxious HEENTM: Yes: Normal ENT Inspection, Pharynx Normal, Nasal Congestion Respiratory: Yes: Within Normal Limits, Lungs Clear, Normal Breath Sounds Neck: Yes: Within Normal Limits, Supple, Trachea in good position Breast: Yes: Within Normal Limits Cardiology: Yes: Within Normal Limits, Regular Rhythm, Regular Rate, S1, S2 Abdominal: Yes: Within Normal Limits, Normal Bowel Sounds, Non Tender, Soft Genitourinary: Yes: Within Normal Limits Back: Yes: Normal Inspection, Muscle Spasm Musculoskeletal: Yes: full range of Motion, Back pain, Joint Stiffness, Muscle Pain Extremities: Yes: Tremors 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, Fully Oriented, Alert, Motor Strength 5/5 Integumentary: Yes: Dry Lymphatic: Yes: Within Normal Limits - Diagnostic (1) Opioid dependence with withdrawal Current Visit: Yes Status: Acute (2) Alcohol dependence with uncomplicated withdrawal Current Visit: Yes Status: Acute (3) Hepatitis C Current Visit: Yes Status: Chronic Qualifiers: Viral hepatitis chronicity: chronic Hepatic coma status: without hepatic coma Qualified Code(s): B18.2 - Chronic viral hepatitis C (4) Hypercholesterolemia Current Visit: Yes Status: Chronic (5) Hypertension Current Visit: Yes Status: Chronic Qualifiers: Hypertension type: essential hypertension Qualified Code(s): I10 - Essential (primary) hypertension (6) Nicotine dependence Current Visit: Yes Status: Acute Qualifiers: Nicotine product type: cigarettes Substance use status: uncomplicated Qualified Code(s): F17.210 - Nicotine dependence, cigarettes, uncomplicated (7) PPD positive Current Visit: Yes Status: Chronic Comment: chest xray done 11/21/16 normal (8) Insomnia secondary to depression with anxiety Current Visit: Yes Status: Acute Cleared for Admission [facility] - Detox or Rehab [facility] Level of Care: Medically Managed Detox Regimen/Protocol: Methadone/Valium [facility] Breath Alcohol Content Breath Alcohol Content: 0.023 Urine Drug Screen - Results Drug Screen Negative: No Urine Drug Screen Results: OPI-Opiates, BZO-Benzodiazepines, MTD-Methadone
[2017-06-30] MEDS ORDERED: IBUPROFEN 400 MG TABLET (FP) PO PRN (13:39)
[2017-06-30] MEDS ORDERED: LOPERAMIDE HCL 2 MG CAPSULE PO PRN (13:39)
[2017-06-30] MEDS ORDERED: MAG HYDROX/AL HYDROX/SIMETH 30 ML UNIT-DOSE CUP PO PRN (13:39)
[2017-06-30] MEDS ORDERED: MAGNESIUM HYDROX 2400MG/30ML ORAL SUSPENSION 30 ML CUP PO PRN (13:39)
[2017-06-30] MEDS ORDERED: ACETAMINOPHEN 325 MG TABLET (FP) PO PRN (13:39)
[2017-06-30] MEDS ORDERED: guaiFENesin/D-METHORPHAN HB 10 ML UNIT-DOSE CUPS PO PRN (13:39)
[2017-06-30] MEDS ORDERED: MENTHOL/PHENOL 1 EACH UD MM PRN (13:39)
[2017-06-30] MEDS ORDERED: MAGNESIUM CITRATE 300 ML BOTTLE PO PRN (13:39)
[2017-06-30] MEDS ORDERED: P-EPHED 60MG/TRIPROLIDI 2.5MG TABLET PO PRN (13:39)
[2017-06-30] MEDS: NICOTINE 21 MG/24 HOURS TOPICAL PATCH TD SCH (15:23)
[2017-06-30] MEDS: COLLOIDAL OATMEAL 1 BAR EACH TP PRN (15:23)
[2017-06-30] MEDS ORDERED: METHADONE HCL 10 MG TABLET (FOR DETOX USE ONLY) PO ONE ×2 (15:30→23:00)
[2017-06-30] MEDS ORDERED: diazePAM 5 MG TABLET PO ONE (15:30)
--- NOTE | 2017-06-30 16:55 | EKG ---
Test Reason : Blood Pressure : / mmHG Vent. Rate : 086 BPM Atrial Rate : 086 BPM P-R Int : 154 ms QRS Dur : 084 ms QT Int : 370 ms P-R-T Axes : 049 038 -04 degrees QTc Int : 442 ms NORMAL SINUS RHYTHM NORMAL ECG WHEN COMPARED WITH ECG OF 09-MAY-2017 13:32, NO SIGNIFICANT CHANGE WAS FOUND Confirmed by MD Snyder Edward ([id number]) on 06/30/2017 4:55:06 PM Referred By: Confirmed By:Eulogio Snyder MD
--- NOTE | 2017-06-30 17:39 | CONSULT ---
[facility] Psychiatric Consult - Data Date of interview: 06/30/17 Admission source: [facility] Identifying data: Readmission to [facility] for this 57 y/o male seeking detox treatment on for alcohol and heroin dependence.Patient is ,a father of one, domiciled,unemployed and supported on SSI benefits. Substance Abuse History: Confirmed by patient in this session.Details in current [facility] report as follows : Smoking history: Current every day smoker. Have you smoked in the past 12 months: Yes. Aproximately how many cigarettes per day: 10. Cigars Per Day: 0. Hx Chewing Tobacco Use: No. Initiated information on smoking cessation: Yes. 'Breaking Loose' booklet given: . - Substance & Tx. History. Hx Alcohol Use: Yes. Hx Substance Use: Yes. Substance Use Type: Alcohol, Heroin. - Substances Abused. Heroin. Route: Inhalation. Frequency: Daily. Amount used: 6 BAGS. Age of first use: 15. Date of Last Use: 06/29/17. Alcohol. Route: Oral. Frequency: Daily. Amount used: 3 12 OZ CANS BEER. Age of first use: 15. Date of Last Use: Medical History: Hypercholesterolemia,chronic lumbar pain,arthritis,hepatitis C, decreased hearing,lupus and hypertension. Psychiatric History: Patient admits to a history of multiple psychiatric hospitalizations ([facility] ).Recently discharged from [facility] after 40 days of retention (self-report ).Diagnosed with Schizoaffective Disorder.Prescribed risperdal 3 mg/hs + remeron 30 mg/hs + wellbutrin 75 mg po bid + ambien 10 mg/hs.Mr Mcpherson presents with a chronic history of non-adherence to medications/aftercare.No longer followed at the [facility] OPD clinic.Patient indicates that he has switched to another provider in the [place].No recall of the name of his new outpatient program.Denies history of suicide attempts. Physical/Sexual Abuse/Trauma History: Patient denies. Additional Comment: Urine Drug Screen Results: OPI-Opiates, BZO-Benzodiazepines , MTD-Methadone.Noted. Mental Status Exam - Mental Status Exam Alert and Oriented to: Time, Place, Person Cognitive Function: Grossly Intact Patient Appearance: Disheveled (overweight,unshaven) Mood: Nervous, Withdrawn, Anxious Affect: Mood Congruent, Constricted Patient Behavior: Fatigued, Appropriate, Cooperative Speech Pattern: Clear Voice Loudness: Normal Thought Process: Goal Oriented Thought Disorder: Not Present Hallucinations: Denies Suicidal Ideation: Denies Homicidal Ideation: Denies Insight/Judgement: Poor Sleep: Poorly, Difficulty falling asleep Appetite: Good Muscle strength/Tone: Normal Gait/Station: Normal Psychiatric Findings - Problem List ([place] 1, 2,3) (1) Opioid dependence with withdrawal Current Visit: Yes Status: Acute (2) Alcohol dependence with uncomplicated withdrawal Current Visit: Yes Status: Acute (3) Nicotine dependence Current Visit: Yes Status: Acute Qualifiers: Nicotine product type: cigarettes Substance use status: uncomplicated Qualified Code(s): F17.210 - Nicotine dependence, cigarettes, uncomplicated (4) Schizoaffective disorder Current Visit: Yes Status: Chronic (5) Insomnia Current Visit: Yes Status: Acute - Initial Treatment Plan Initial Treatment Plan: Previous records revisited.Recent pharmacy claims are also reviewed.Psychoeducation.Sleep hygiene.Detoxification initiated.Will restart risperdal at 1 mg po bid (titrate to 3 mg/hs) + remeron 15 mg po hs.Side effects/benefits of both drugs are discussed with the patient.Mr Mcpherson is in agreement with this plan of care.Observation.
[2017-06-30] MEDS ORDERED: MELATONIN 5 MG TABLETS PO PRN (22:00)
[2017-06-30] MEDS: risperiDONE 1 MG TABLET (FP) PO SCH (22:22)
[2017-06-30] MEDS: THIAMINE HCL 100 MG TABLET (FP) PO SCH (22:22)
[2017-06-30] MEDS: ATORVASTATIN CA 40 MG TABLET (FP) PO SCH (22:22)
[2017-06-30] MEDS: diazePAM 5 MG TABLET PO SCH (22:22)
[2017-06-30] MEDS: MIRTAZAPINE 15 MG TABLET (FP) PO SCH (22:22)
[2017-07-01] MEDS: diazePAM 5 MG TABLET PO SCH ×3 (05:57→22:06)
[2017-07-01] MEDS: diazePAM 5 MG TABLET PO PRN (08:55)
[2017-07-01 09:46] LABS: HEMATOCRIT 43.8 % (35.4-49); HEMOGLOBIN 14.8 GM/dL (11.7-16.9); MCHC 33.9 g/dl (32.0-35.9); MEAN CELL VOLUME 85.8 fl (80-96); MEAN PLT VOLUME 8.4 fl (7.5-11.1); PLATELET COUNT 255 K/MM3 (134-434); RDW 13.9 % (11.9-15.9)
[2017-07-01] MEDS ORDERED: METHADONE HCL 10 MG TABLET (FOR DETOX USE ONLY) PO SCH (10:00)
[2017-07-01 10:03] LABS: ALBUMIN 4.1 g/dl (3.4-5.0); ANION GAP 5 (8-16); BLOOD UREA NITROGEN 16 mg/dL (7-18); CALCIUM 9.2 mg/dL (8.5-10.1); CHLORIDE 104 mmol/L (98-107); CO2 31 mmol/L (21-32); CREATININE 0.9 mg/dL (0.7-1.3); GLUCOSE,RANDOM 85 mg/dL (74-106); POTASSIUM 4.7 mmol/L (3.5-5.1); SGOT/AST 38 U/L (15-37); SODIUM 140 mmol/L (136-145)
[2017-07-01 10:05] LABS: ALK PHOS 93 U/L (45-117); BILIRUBIN,TOTAL 0.3 mg/dL (0.2-1.0); SGPT/ALT 53 U/L (12-78); TOT PROT 7.9 g/dl (6.4-8.2)
[2017-07-01] MEDS: risperiDONE 1 MG TABLET (FP) PO SCH ×2 (10:20→22:06)
[2017-07-01] MEDS: amLODIPine BESYLATE 5 MG TABLET (FP) PO SCH (10:20)
[2017-07-01] MEDS: PRENATAL VITAMINS W/ FOLIC ACID TABLET (FP) PO SCH (10:20)
[2017-07-01] MEDS: ASPIRIN 81 MG CHEWABLE TABLETS PO SCH (10:21)
[2017-07-01] MEDS: NICOTINE 21 MG/24 HOURS TOPICAL PATCH TD SCH (10:21)
--- NOTE | 2017-07-01 12:13 | PN ---
S CIWA - CIWA Score Nausea/Vomitin-No Nausea/No Vomiting Muscle Tremors: 3 Anxiety: 4-Mod. Anxious/Guarded Agitation: 2 Paroxysmal Sweats: No Perspiration Orientation: 0-Oriented Tacttile Disturbances: 3-Moderate Itch/Numb/Burn Auditory Disturbances: 2-Mild Harshness/Frighten Visual Disturbances: 3-Moderate Sensitivity Headache: 0-None Present CIWA-Ar Total Score: 17 BHS COWS - Scale Resting Pulse: 0= [place] 80 or Below Sweatin= Chills/Flushing Restless Observation: 0= Sits Still Pupil Size: 0= Normal to Room Light Bone or Joint Aches: 1= Mild Discomfort Runny Nose/ Eye Tearin= Nasal Congestion GI Upset > 30mins: 0= None Tremor Observation of Outstretched Hands: 2= Slight Tremor Visible Yawning Observation: 2= >3x During Session Anxiety or Irritability: 2=Irritable/Anxious Goose Flesh Skin: 3=Piloerection COWS Score: 12 BHS Progress Note (SOAP) Subjective: Body Aches, Tremors, Anxious. Objective: PATIENT A & O X 3. NO ACUTE DISTRESS. 07/01/17 12:12 Vital Signs Temperature 97.7 F 07/01/17 09:04 Pulse Rate 71 07/01/17 09:04 Respiratory Rate 18 07/01/17 09:04 Blood Pressure 126/71 07/01/17 09:04 O2 Sat by Pulse Oximetry (%) Laboratory Tests 07/01/17 07/01/17 06:10 06:10 WBC 5.0 RBC 5.10 Hgb 14.8 Hct 43.8 MCV 85.8 MCH 29.0 MCHC 33.9 RDW 13.9 Plt Count 255 MPV 8.4 D Sodium 140 Potassium 4.7 D Chloride 104 Carbon Dioxide 31 Anion Gap 5 L BUN 16 Creatinine 0.9 Creat Clearance w eGFR > 60 Random Glucose 85 D Calcium 9.2 Total Bilirubin 0.3 AST 38 H D ALT 53 D Alkaline Phosphatase 93 Total Protein 7.9 Albumin 4.1 D LABS NOTED. UA, RPR RESULTS PENDING. Assessment: 07/01/17 12:12 WITHDRAWAL SYMPTOMS. Plan: CONTINUE DETOX. INCREASE DAILY PO FLUID INTAKE.
[2017-07-01 18:16] LABS: URINE APPEARANCE TURBID; URINE BILIRUBIN NEGATIVE (<2.0 mg/dL); URINE BLOOD NEGATIVE (NEGATIVE); URINE COLOR YELLOW; URINE GLUCOSE (UA) NEGATIVE (NEGATIVE); URINE KETONE NEGATIVE (NEGATIVE); URINE LEUK ESTERASE NEGATIVE (NEGATIVE); URINE NITRITE NEGATIVE (NEGATIVE); URINE PROTEIN NEGATIVE (NEGATIVE); URINE UROBILINOGEN NEGATIVE mg/dL (0.2-1.0)
[2017-07-01] MEDS: ATORVASTATIN CA 40 MG TABLET (FP) PO SCH (22:05)
[2017-07-01] MEDS: MIRTAZAPINE 15 MG TABLET (FP) PO SCH (22:06)
[2017-07-01] MEDS: THIAMINE HCL 100 MG TABLET (FP) PO SCH (22:07)
[2017-07-02] MEDS: diazePAM 5 MG TABLET PO PRN (08:23)
[2017-07-02] MEDS: NAPROXEN 250 MG TABLET (FP) PO SCH ×2 (10:05→22:08)
[2017-07-02] MEDS: METHADONE HCL 5 MG TABLET (FOR DETOX USE ONLY) PO SCH (10:11)
[2017-07-02] MEDS: risperiDONE 1 MG TABLET (FP) PO SCH ×2 (10:11→22:09)
[2017-07-02] MEDS: ASPIRIN 81 MG CHEWABLE TABLETS PO SCH (10:11)
[2017-07-02] MEDS: diazePAM 5 MG TABLET PO SCH ×2 (10:11→22:08)
[2017-07-02] MEDS: amLODIPine BESYLATE 5 MG TABLET (FP) PO SCH (10:11)
[2017-07-02] MEDS: NICOTINE 21 MG/24 HOURS TOPICAL PATCH TD SCH (10:13)
[2017-07-02] MEDS: PRENATAL VITAMINS W/ FOLIC ACID TABLET (FP) PO SCH (10:14)
--- NOTE | 2017-07-02 11:06 | PN ---
S CIWA - CIWA Score Nausea/Vomitin-No Nausea/No Vomiting Muscle Tremors: 3 Anxiety: 4-Mod. Anxious/Guarded Agitation: 0-Normal Activity Paroxysmal Sweats: 3 Orientation: 0-Oriented Tacttile Disturbances: 2-Mild Itch/Numbness/Burn Auditory Disturbances: 0-None Visual Disturbances: 3-Moderate Sensitivity Headache: 0-None Present CIWA-Ar Total Score: 15 S COWS - Scale Resting Pulse: 0= [place] 80 or Below Sweatin=Flushed/Facial Moisture Restless Observation: 0= Sits Still Pupil Size: 0= Normal to Room Light Bone or Joint Aches: 2= Severe Diffuse Aches Runny Nose/ Eye Tearin= None GI Upset > 30mins: 0= None Tremor Observation of Outstretched Hands: 2= Slight Tremor Visible Yawning Observation: 1= 1-2x During Session Anxiety or Irritability: 2=Irritable/Anxious Goose Flesh Skin: 3=Piloerection COWS Score: 12 S Progress Note (SOAP) Subjective: Tremors, Sweating, Itching, Anxious, Interrupted Sleep. Objective: PATIENT A & O X 3, OBSERVED AMBULATING ON UNIT. NO ACUTE DISTRESS. 07/02/17 11:03 Vital Signs Temperature 97.0 F L 07/02/17 09:02 Pulse Rate 76 07/02/17 09:02 Respiratory Rate 18 07/02/17 09:02 Blood Pressure 158/98 07/02/17 09:02 O2 Sat by Pulse Oximetry (%) Laboratory Tests 06/30/17 07/01/17 07/01/17 12:00 06:10 06:10 WBC 5.0 RBC 5.10 Hgb 14.8 Hct 43.8 MCV 85.8 MCH 29.0 MCHC 33.9 RDW 13.9 Plt Count 255 MPV 8.4 D Sodium 140 Potassium 4.7 D Chloride 104 Carbon Dioxide 31 Anion Gap 5 L BUN 16 Creatinine 0.9 Creat Clearance w eGFR > 60 Random Glucose 85 D Calcium 9.2 Total Bilirubin 0.3 AST 38 H D ALT 53 D Alkaline Phosphatase 93 Total Protein 7.9 Albumin 4.1 D Urine Color Yellow Urine Appearance Turbid Urine pH 5.0 Ur Specific [place] 1.023 Urine Protein Negative Urine Glucose (UA) Negative Urine Ketones Negative Urine Blood Negative Urine Nitrite Negative Urine Bilirubin Negative Urine Urobilinogen Negative Ur Leukocyte Esterase Negative RPR Titer 07/01/17 06:10 WBC RBC Hgb Hct MCV MCH MCHC RDW Plt Count MPV Sodium Potassium Chloride Carbon Dioxide Anion Gap BUN Creatinine Creat Clearance w eGFR Random Glucose Calcium Total Bilirubin AST ALT Alkaline Phosphatase Total Protein Albumin Urine Color Urine Appearance Urine pH Ur Specific [place] Urine Protein Urine Glucose (UA) Urine Ketones Urine Blood Urine Nitrite Urine Bilirubin Urine Urobilinogen Ur Leukocyte Esterase RPR Titer Nonreactive LABS NOTED. Assessment: 07/02/17 11:04 WITHDRAWAL SYMPTOMS. Plan: CONTINUE DETOX. NAPROXEN BID FOR BODY ACHES. INCREASE DAILY PO FLUID INTAKE.
[2017-07-02] MEDS: THIAMINE HCL 100 MG TABLET (FP) PO SCH (22:08)
[2017-07-02] MEDS: ATORVASTATIN CA 40 MG TABLET (FP) PO SCH (22:09)
[2017-07-02] MEDS: MIRTAZAPINE 15 MG TABLET (FP) PO SCH (22:09)
[2017-07-03] MEDS: diazePAM 5 MG TABLET PO SCH ×2 (10:08→21:24)
[2017-07-03] MEDS: METHADONE HCL 5 MG TABLET (FOR DETOX USE ONLY) PO SCH (10:08)
[2017-07-03] MEDS: PRENATAL VITAMINS W/ FOLIC ACID TABLET (FP) PO SCH (10:08)
[2017-07-03] MEDS: ASPIRIN 81 MG CHEWABLE TABLETS PO SCH (10:08)
[2017-07-03] MEDS: NAPROXEN 250 MG TABLET (FP) PO SCH ×2 (10:08→21:26)
[2017-07-03] MEDS: NICOTINE 21 MG/24 HOURS TOPICAL PATCH TD SCH (10:08)
[2017-07-03] MEDS: amLODIPine BESYLATE 5 MG TABLET (FP) PO SCH (10:09)
[2017-07-03] MEDS: risperiDONE 1 MG TABLET (FP) PO SCH (10:09)
--- NOTE | 2017-07-03 11:52 | PN ---
BHS Progress Note (SOAP) Subjective: Body Aches, Tremors, Anxious, Fatigue. Objective: PATIENT A & O X 3, OBSERVED AMBULATING ON UNIT. NO ACUTE DISTRESS. 07/03/17 11:50 Vital Signs Temperature 96.3 F L 07/03/17 09:30 Pulse Rate 71 07/03/17 09:30 Respiratory Rate 18 07/03/17 09:30 Blood Pressure 115/66 07/03/17 09:30 O2 Sat by Pulse Oximetry (%) Laboratory Tests 06/30/17 07/01/17 07/01/17 12:00 06:10 06:10 WBC 5.0 RBC 5.10 Hgb 14.8 Hct 43.8 MCV 85.8 MCH 29.0 MCHC 33.9 RDW 13.9 Plt Count 255 MPV 8.4 D Sodium 140 Potassium 4.7 D Chloride 104 Carbon Dioxide 31 Anion Gap 5 L BUN 16 Creatinine 0.9 Creat Clearance w eGFR > 60 Random Glucose 85 D Calcium 9.2 Total Bilirubin 0.3 AST 38 H D ALT 53 D Alkaline Phosphatase 93 Total Protein 7.9 Albumin 4.1 D Urine Color Yellow Urine Appearance Turbid Urine pH 5.0 Ur Specific [place] 1.023 Urine Protein Negative Urine Glucose (UA) Negative Urine Ketones Negative Urine Blood Negative Urine Nitrite Negative Urine Bilirubin Negative Urine Urobilinogen Negative Ur Leukocyte Esterase Negative RPR Titer 07/01/17 06:10 WBC RBC Hgb Hct MCV MCH MCHC RDW Plt Count MPV Sodium Potassium Chloride Carbon Dioxide Anion Gap BUN Creatinine Creat Clearance w eGFR Random Glucose Calcium Total Bilirubin AST ALT Alkaline Phosphatase Total Protein Albumin Urine Color Urine Appearance Urine pH Ur Specific [place] Urine Protein Urine Glucose (UA) Urine Ketones Urine Blood Urine Nitrite Urine Bilirubin Urine Urobilinogen Ur Leukocyte Esterase RPR Titer Nonreactive LABS NOTED. Assessment: 07/03/17 11:50 WITHDRAWAL SYMPTOMS. Plan: CONTINUE DETOX. INCREASE DAILY PO FLUID INTAKE. ENCOURAGE AMBULATION.
[2017-07-03] MEDS: MIRTAZAPINE 15 MG TABLET (FP) PO SCH (21:24)
[2017-07-03] MEDS: risperiDONE 2 MG TABLET PO SCH (21:24)
[2017-07-03] MEDS: THIAMINE HCL 100 MG TABLET (FP) PO SCH (21:24)
[2017-07-03] MEDS: ATORVASTATIN CA 40 MG TABLET (FP) PO SCH (21:24)
[2017-07-03] MEDS: COLLOIDAL OATMEAL 1 BAR EACH TP PRN (21:27)
[2017-07-04] MEDS: NAPROXEN 250 MG TABLET (FP) PO SCH ×2 (09:04→22:10)
[2017-07-04] MEDS ORDERED: METHADONE HCL 10 MG TABLET (FOR DETOX USE ONLY) PO SCH (10:00)
[2017-07-04] MEDS ORDERED: risperiDONE 1 MG TABLET (FP) PO SCH (10:00)
[2017-07-04] MEDS ORDERED: diazePAM 5 MG TABLET PO SCH (10:00)
[2017-07-04] MEDS: ASPIRIN 81 MG CHEWABLE TABLETS PO SCH (10:03)
[2017-07-04] MEDS: PRENATAL VITAMINS W/ FOLIC ACID TABLET (FP) PO SCH (10:03)
[2017-07-04] MEDS: amLODIPine BESYLATE 5 MG TABLET (FP) PO SCH (10:04)
[2017-07-04] MEDS: NICOTINE 21 MG/24 HOURS TOPICAL PATCH TD SCH (10:05)
--- NOTE | 2017-07-04 13:16 | PN ---
BHS Progress Note (SOAP) Subjective: Fatigue, Body Aches. Objective: PATIENT A & O X 3. NO ACUTE DISTRESS. 07/04/17 13:14 Vital Signs Temperature 97.1 F L 07/04/17 09:04 Pulse Rate 76 07/04/17 09:04 Respiratory Rate 16 07/04/17 09:04 Blood Pressure 111/62 07/04/17 09:04 O2 Sat by Pulse Oximetry (%) Laboratory Tests 06/30/17 07/01/17 07/01/17 12:00 06:10 06:10 WBC 5.0 RBC 5.10 Hgb 14.8 Hct 43.8 MCV 85.8 MCH 29.0 MCHC 33.9 RDW 13.9 Plt Count 255 MPV 8.4 D Sodium 140 Potassium 4.7 D Chloride 104 Carbon Dioxide 31 Anion Gap 5 L BUN 16 Creatinine 0.9 Creat Clearance w eGFR > 60 Random Glucose 85 D Calcium 9.2 Total Bilirubin 0.3 AST 38 H D ALT 53 D Alkaline Phosphatase 93 Total Protein 7.9 Albumin 4.1 D Urine Color Yellow Urine Appearance Turbid Urine pH 5.0 Ur Specific [place] 1.023 Urine Protein Negative Urine Glucose (UA) Negative Urine Ketones Negative Urine Blood Negative Urine Nitrite Negative Urine Bilirubin Negative Urine Urobilinogen Negative Ur Leukocyte Esterase Negative RPR Titer 07/01/17 06:10 WBC RBC Hgb Hct MCV MCH MCHC RDW Plt Count MPV Sodium Potassium Chloride Carbon Dioxide Anion Gap BUN Creatinine Creat Clearance w eGFR Random Glucose Calcium Total Bilirubin AST ALT Alkaline Phosphatase Total Protein Albumin Urine Color Urine Appearance Urine pH Ur Specific [place] Urine Protein Urine Glucose (UA) Urine Ketones Urine Blood Urine Nitrite Urine Bilirubin Urine Urobilinogen Ur Leukocyte Esterase RPR Titer Nonreactive LABS NOTED. Assessment: 07/04/17 13:14 WITHDRAWAL SYMPTOMS. Plan: CONTINUE DETOX. INCREASE DAILY PO FLUID INTAKE. ENCOURAGE AMBULATION.
[2017-07-04] MEDS: risperiDONE 2 MG TABLET PO SCH (22:08)
[2017-07-04] MEDS: MIRTAZAPINE 15 MG TABLET (FP) PO SCH (22:08)
[2017-07-04] MEDS: THIAMINE HCL 100 MG TABLET (FP) PO SCH (22:09)
[2017-07-04] MEDS: ATORVASTATIN CA 40 MG TABLET (FP) PO SCH (22:09)
[2017-07-05] MEDS ORDERED: METHADONE HCL 5 MG TABLET (FOR DETOX USE ONLY) PO SCH (06:00)
[2017-07-05 06:19] VITALS: BP 104/72; PULSE 78; TEMP 97.2
--- NOTE | 2017-07-05 11:59 | DS ---
[facility] Summary Admission Date: 06/30/17 Discharge Date: 07/05/17 - History Present History: Alcohol Dependence, Opioid Dependence Pertinent Past History: Hepatitis C HLD HTN - Physical Exam Results Vital Signs: Vital Signs Temperature 97.2 F L 07/05/17 06:18 Pulse Rate 78 07/05/17 06:18 Respiratory Rate 18 07/05/17 06:30 Blood Pressure 104/72 07/05/17 06:18 O2 Sat by Pulse Oximetry (%) Pertinent Admission Physical Exam Findings: Withdrawal symptoms Laboratory Tests 06/30/17 07/01/17 07/01/17 12:00 06:10 06:10 WBC 5.0 RBC 5.10 Hgb 14.8 Hct 43.8 MCV 85.8 MCH 29.0 MCHC 33.9 RDW 13.9 Plt Count 255 MPV 8.4 D Sodium 140 Potassium 4.7 D Chloride 104 Carbon Dioxide 31 Anion Gap 5 L BUN 16 Creatinine 0.9 Creat Clearance w eGFR > 60 Random Glucose 85 D Calcium 9.2 Total Bilirubin 0.3 AST 38 H D ALT 53 D Alkaline Phosphatase 93 Total Protein 7.9 Albumin 4.1 D Urine Color Yellow Urine Appearance Turbid Urine pH 5.0 Ur Specific [place] 1.023 Urine Protein Negative Urine Glucose (UA) Negative Urine Ketones Negative Urine Blood Negative Urine Nitrite Negative Urine Bilirubin Negative Urine Urobilinogen Negative Ur Leukocyte Esterase Negative RPR Titer 07/01/17 06:10 WBC RBC Hgb Hct MCV MCH MCHC RDW Plt Count MPV Sodium Potassium Chloride Carbon Dioxide Anion Gap BUN Creatinine Creat Clearance w eGFR Random Glucose Calcium Total Bilirubin AST ALT Alkaline Phosphatase Total Protein Albumin Urine Color Urine Appearance Urine pH Ur Specific [place] Urine Protein Urine Glucose (UA) Urine Ketones Urine Blood Urine Nitrite Urine Bilirubin Urine Urobilinogen Ur Leukocyte Esterase RPR Titer Nonreactive Labs reviewed - Treatment Hospital Course: Detox Protocol Followed, Detoxed Safely, Responded well, Discharged Condition Good - Medication Discharge Medications: Ambulatory Orders Aspirin [ASA -] 81 mg PO DAILY #30 tab 06/12/16 Amlodipine Besylate [Norvasc -] 5 mg PO DAILY #30 tab 05/14/17 Atorvastatin Ca [Lipitor] 40 mg PO HS #30 tab 05/14/17 Mirtazapine [Remeron -] 30 mg PO HS #30 tablet 07/03/17 Risperidone [Risperdal -] 3 mg PO HS #30 tablet 07/03/17 - Diagnosis (1) Alcohol dependence with uncomplicated withdrawal Status: Acute (2) Insomnia Status: Acute (3) Nicotine dependence Status: Chronic Qualifiers: Nicotine product type: cigarettes Substance use status: uncomplicated Qualified Code(s): F17.210 - Nicotine dependence, cigarettes, uncomplicated (4) Opioid dependence with withdrawal Status: Acute (5) Hepatitis C Status: Chronic Qualifiers: Viral hepatitis chronicity: chronic Hepatic coma status: without hepatic coma Qualified Code(s): B18.2 - Chronic viral hepatitis C (6) Hypercholesterolemia Status: Chronic (7) Hypertension Status: Chronic Qualifiers: Hypertension type: essential hypertension Qualified Code(s): I10 - Essential (primary) hypertension - AMA Did Patient Leave Against Medical Advice: No (F/U with your PCP within 1-2 weeks )
== END 2017-07-05 09:25 | disposition home or self-care (01) | DRG 773 ==
LOC: YASAS 11:53 → Y3N 13:46
PROVIDERS: ADMIT Internal Medicine; ATTEND Internal Medicine
PROC: HZ2ZZZZ Detoxification Services for Substance Abuse Treatment (ICD-10-PCS; principal; 2017-06-30)
DX: F11.23 Opioid dependence with withdrawal (principal); F10.230 Alcohol dependence with withdrawal, uncomplicated; F17.210 Nicotine dependence, cigarettes, uncomplicated; I10 Essential (primary) hypertension; E78.00 Pure hypercholesterolemia, unspecified; B18.2 Chronic viral hepatitis C; G47.00 Insomnia, unspecified
CPT/HCPCS: 36415; 80053; 81003; 85027; 86593; 93005; 93010; J2794

== ENCOUNTER 2017-08-08 09:52 | Inpatient (IN) | payer OTHER ==
[2017-08-08 10:57] VITALS: BMI 31.1
--- NOTE | 2017-08-08 13:17 | HP ---
COWS - Scale Resting Pulse: 0= [place] 80 or Below Sweatin= Chills/Flushing Restless Observation: 1= Difficult to Sit Still Pupil Size: 0= Normal to Room Light Bone or Joint Aches: 1= Mild Discomfort Runny Nose/ Eye Tearin= Nasal Congestion GI Upset > 30mins: 1= Stomach Cramp Tremor Observation: 2= Slight Tremor Visible Yawning Observation: 1= 1-2x During Session Anxiety or Irritability: 2=Irritable/Anxious Goose Flesh Skin: 0=Smooth Skin COWS Score: 10 CIWA Score - CIWA Score Nausea/Vomitin-Mild Nausea/No Vomiting Muscle Tremors: 4-Moderate,w/Arms Extend Anxiety: 4-Mod. Anxious/Guarded Agitation: 1-Slight > Activity Paroxysmal Sweats: 1-Minimal Palms Moist Orientation: 0-Oriented Tacttile Disturbances: 0-None Auditory Disturbances: 1-Very Mild Visual Disturbances: 1-Very Mild Sensitivity Headache: 2-Mild CIWA-Ar Total Score: 15 Admission ROS BHS - HPI Chief Complaint: I need to be here, I want to stop, I feel bad, sick. Allergies/Adverse Reactions: Allergies Allergy/AdvReac Type Severity Reaction Status Date / Time chlordiazepoxide Allergy Severe Itching Verified 08/08/17 12:35 [From Librium] History of Present Illness: 57 yo gentleman here for detox from heroin and alcohol - one of many admissions for detox. No seizures, no black outs. Was on methadone program years ago - now gets street methadone but wants to go on a program again. Exam Limitations: Clinical Condition - Ebola screening Have you been sick,other than usual withdrawal symptoms: No Patient History - Patient Medical History Hx Anemia: No Hx Asthma: No Hx Chronic Obstructive Pulmonary Disease (COPD): No Hx Cancer: No Hx Cardiac Disorders: No Hx Congestive Heart Failure: No Hx Hypertension: Yes (on med) Hx Hypercholesterolemia: Yes (ON MED) Hx Pacemaker: No HX Cerebrovascular Accident: No Hx Seizures: No Hx Dementia: No Hx Diabetes: No Hx Gastrointestinal Disorders: No Hx Liver Disease: No Hx Genitourinary Disorders: No Hx Sexually Transmitted Disorders: No Hx Renal Disease (ESRD): No Hx Thyroid Disease: No Hx Human Immunodeficiency Virus (HIV): No Hx Hepatitis C: Yes (denies treatment) Hx Depression: Yes (hospitalized apr 2017) Hx Suicide Attempt: No Hx Bipolar Disorder: No Hx Schizophrenia: Yes (schizoaffective) Other Medical History: lupus, dry skin - Patient Surgical History Past Surgical History: No Hx Neurologic Surgery: No Hx Cataract Extraction: No Hx Cardiac Surgery: No Hx Lung Surgery: No Hx Breast Surgery: No Hx Breast Biopsy: No Hx Abdominal Surgery: No Hx Appendectomy: No Hx Cholecystectomy: No Hx Genitourinary Surgery: No Hx Section: No Hx Orthopedic Surgery: No Anesthesia Reaction: No - PPD History Previous Implant?: Yes Documented Results: Positive w/proof Implanted On Prior [facility] Admission?: Yes Date: 11/21/16 (cxr) Results: NEGATIVE PPD to be Administered?: No - Reproductive History Patient is a Female of Child Bearing Age (11 -55 yrs old): No (male) - Smoking Cessation Smoking history: Current every day smoker Have you smoked in the past 12 months: Yes Aproximately how many cigarettes per day: 20 Cigars Per Day: 0 Hx Chewing Tobacco Use: No Initiated information on smoking cessation: Yes 'Breaking Loose' booklet given: 08/08/17 (give on floor) - Substance & Tx. History Hx Alcohol Use: Yes Hx Substance Use: Yes Substance Use Type: Alcohol Hx Substance Use Treatment: Yes (detox, rehab) - Substances Abused Alcohol Route: Oral Frequency: Daily Amount used: 1 pint of vodka, six pack 12 ozpack of beer Age of first use: 16 Date of Last Use: 08/08/17 Heroin Route: Inhalation Frequency: Daily Amount used: 8-10 bags $80-100 Age of first use: 15 Date of Last Use: 08/08/17 Cocaine Route: Inhalation Frequency: Daily Amount used: 12 bags $120 Age of first use: 15 Date of Last Use: 08/07/17 Non-Rx Methadone Route: Oral Frequency: 1-3 times last 30 days Amount used: 40mg Age of first use: 39 Date of Last Use: 08/06/17 Family Disease History - Family Disease History Family Disease History: Heart Disease: Father (, alcohol), Mother ( alcohol, htn ,), Brother (three living), Other: Father, Mother, Brother , Sister (one living), Daughter (one in [place]) Admission Physical Exam BHS - Vital Signs Vital Signs: Vital Signs - 24 hr 08/08/17 10:55 Temperature 98.0 F Pulse Rate 77 Respiratory 21 Rate Blood Pressure 132/86 - Physical General Appearance: Yes: Nourished, Appropriately Dressed, Moderate Distress, Anxious HEENTM: Yes: EOMI, Hearing grossly Normal, Normocephalic, Normal Voice, Other ( no teeth) Respiratory: Yes: Normal Breath Sounds, No Respiratory Distress Neck: Yes: No masses,lesions,Nodules, Supple Breast: Yes: Breast Exam Deferred Cardiology: Yes: Regular Rhythm, Regular Rate Abdominal: Yes: Non Tender, Soft Genitourinary: Yes: Frequency Back: Yes: Decreased Range of Motion Musculoskeletal: Yes: Gait Steady, Joint Stiffness Extremities: Yes: Normal Inspection, Normal Range of Motion, Non-Tender Neurological: Yes: Fully Oriented, Alert, Normal Mood/Affect, Normal Response Integumentary: Yes: Normal Color, Dry, Warm Lymphatic: Yes: Within Normal Limits - Diagnostic (1) Alcohol dependence with uncomplicated withdrawal Current Visit: Yes Status: Acute (2) Opioid dependence with withdrawal Current Visit: Yes Status: Acute (3) Dry skin Current Visit: Yes Status: Chronic (4) Hepatitis C Current Visit: Yes Status: Chronic Qualifiers: Viral hepatitis chronicity: chronic Hepatic coma status: without hepatic coma Qualified Code(s): B18.2 - Chronic viral hepatitis C (5) Weight loss Current Visit: Yes Status: Acute (6) PPD positive Current Visit: Yes Status: Chronic Comment: chest xray done 11/21/16 normal (7) Nicotine dependence Current Visit: Yes Status: Chronic Qualifiers: Nicotine product type: cigarettes Substance use status: uncomplicated Qualified Code(s): F17.210 - Nicotine dependence, cigarettes, uncomplicated (8) Lupus (systemic lupus erythematosus) Current Visit: Yes Status: Chronic Qualifiers: Systemic lupus erythematosus type: unspecified Systemic lupus erythematosus organ involvement: unspecified Qualified Code(s): M32.9 - Systemic lupus erythematosus, unspecified (9) Hypercholesterolemia Current Visit: Yes Status: Chronic Cleared for Admission [facility] - Detox or Rehab S Level of Care: Medically Managed Detox Regimen/Protocol: Methadone/Valium [facility] Breath Alcohol Content Breath Alcohol Content: 0.026 Urine Drug Screen - Results Drug Screen Negative: No Urine Drug Screen Results: AMBAR-Cocaine, OPI-Opiates, BZO-Benzodiazepines, MTD- Methadone
[2017-08-08] MEDS ORDERED: METHADONE HCL 10 MG TABLET (FOR DETOX USE ONLY) PO ONE ×2 (13:24→23:00)
[2017-08-08] MEDS ORDERED: diazePAM 5 MG TABLET PO PRN (13:24)
[2017-08-08] MEDS ORDERED: LOPERAMIDE HCL 2 MG CAPSULE PO PRN (13:24)
[2017-08-08] MEDS ORDERED: MAG HYDROX/AL HYDROX/SIMETH 30 ML UNIT-DOSE CUP PO PRN (13:24)
[2017-08-08] MEDS ORDERED: IBUPROFEN 400 MG TABLET (FP) PO PRN (13:24)
[2017-08-08] MEDS ORDERED: MAGNESIUM CITRATE 300 ML BOTTLE PO PRN (13:24)
[2017-08-08] MEDS ORDERED: MAGNESIUM HYDROX 2400MG/30ML ORAL SUSPENSION 30 ML CUP PO PRN (13:24)
[2017-08-08] MEDS ORDERED: ACETAMINOPHEN 325 MG TABLET (FP) PO PRN (13:24)
[2017-08-08] MEDS ORDERED: P-EPHED 60MG/TRIPROLIDI 2.5MG TABLET PO PRN (13:24)
[2017-08-08] MEDS ORDERED: diazePAM 5 MG TABLET PO ONE (13:24)
[2017-08-08] MEDS ORDERED: MENTHOL/PHENOL 1 EACH UD MM PRN (13:24)
[2017-08-08] MEDS ORDERED: guaiFENesin/D-METHORPHAN HB 10 ML UNIT-DOSE CUPS PO PRN (13:24)
[2017-08-08] MEDS ORDERED: COLLOIDAL OATMEAL 1 BAR EACH TP PRN (13:27)
[2017-08-08] MEDS ORDERED: METHADONE HCL 10 MG TABLET (FOR DETOX USE ONLY) ONE (15:41)
[2017-08-08] MEDS: NICOTINE 21 MG/24 HOURS TOPICAL PATCH TD SCH (15:47)
--- NOTE | 2017-08-08 17:36 | EKG ---
Test Reason : Blood Pressure : / mmHG Vent. Rate : 068 BPM Atrial Rate : 068 BPM P-R Int : 152 ms QRS Dur : 084 ms QT Int : 394 ms P-R-T Axes : 027 029 -05 degrees QTc Int : 418 ms NORMAL SINUS RHYTHM NONSPECIFIC T WAVE ABNORMALITY ABNORMAL ECG WHEN COMPARED WITH ECG OF 30-JUN-2017 15:27, NONSPECIFIC T WAVE ABNORMALITY NOW EVIDENT IN LATERAL LEADS Confirmed by CORY GRIMM, FLORENTIN ([id number]) on 08/08/2017 5:36:20 PM Referred By: Jayna Pack Confirmed By:FLORENTIN RAY MD
[2017-08-08] MEDS: diazePAM 5 MG TABLET PO SCH (22:34)
[2017-08-08] MEDS: ATORVASTATIN CA 40 MG TABLET (FP) PO SCH (22:34)
[2017-08-08] MEDS: THIAMINE HCL 100 MG TABLET (FP) PO SCH (22:34)
[2017-08-08] MEDS: MELATONIN 5 MG TABLETS PO PRN (22:35)
[2017-08-09] MEDS: diazePAM 5 MG TABLET PO SCH ×3 (05:21→22:18)
--- NOTE | 2017-08-09 08:12 | CONSULT ---
[facility] Psychiatric Consult - Data Date of interview: 08/09/17 Admission source: Self-referred Identifying data: Mr Mcpherson is a 57 years old male, father of a 21 years old daughter, unemployed on SSI, domiciled seeking detox treatment for alcohol, opioid and cocaine Substance Abuse History: Reports history of alcohol, heroin, non-prescribed methadone and cocaine use. Refer to addiction counselor's summary for further information Medical History: Significant for hypertension, hypercholesterolemia, chronic lumbar pain, arthritis, hepatitis C, decreased hearing, and lupus erythematosus. Smokes cigarettes 1ppd Psychiatric History: Patient was diagnosed with Schizoaffective Disorder with history of multiple psychiatric hospitalizations ([facility] ,[facility], [facility], [place], [facility]). Patient was unable to tell proposal manager writer location and date of last admission. However Dr Beltran saw patient on and reported that he was told by patient that he was recently discharged from [facility] after 40 days of retention, and was prescribed Risperdal 3 mg /hs + Remeron 30 mg/hs + Wellbutrin 75 mg po bid + Ambien 10 mg/hs. According to Dr Beltran' summary he has a chronic history of non-adherence to medications and aftercare. No longer followed at the [facility] clinic. Told proposal manager writer that he does currently see psychiatrist and does not want psychotropic medication besides Ambien. Denies history of suicide attempts. At present, reports feeling depressed and sleeping poorly. Denies experiencing psychotic or manic symptoms, suicidal, homicidal ideations Physical/Sexual Abuse/Trauma History: Denies history of emotional, physical or sexual abuse as well as DV relationship Additional Comment: Reports history of one previous arrests on charges of possession of control substance. Denies being on parole/probation currently Mental Status Exam - Mental Status Exam Alert and Oriented to: Time, Place, Person Cognitive Function: Fair Patient Appearance: Well Groomed Mood: Depressed Affect: Appropriate Patient Behavior: Cooperative Speech Pattern: Clear Voice Loudness: Normal Thought Process: Intact, Goal Oriented Thought Disorder: Not Present Hallucinations: Denies Suicidal Ideation: Denies Homicidal Ideation: Denies Insight/Judgement: Fair Sleep: Poorly Appetite: Good Muscle strength/Tone: Normal Gait/Station: Normal Psychiatric Findings - Problem List ([place] 1, 2,3) (1) Schizoaffective disorder Current Visit: No Status: Chronic (2) Substance induced mood disorder Current Visit: Yes Status: Acute (3) Substance-induced sleep disorder Current Visit: Yes Status: Acute (4) Alcohol dependence with uncomplicated withdrawal Current Visit: Yes Status: Acute (5) Opioid dependence with withdrawal Current Visit: Yes Status: Acute (6) Cocaine dependence Current Visit: No Status: Acute Qualifiers: Substance use status: in withdrawal Qualified Code(s): F14.23 - Cocaine dependence with withdrawal (7) Nicotine dependence Current Visit: Yes Status: Chronic Qualifiers: Nicotine product type: cigarettes Substance use status: uncomplicated Qualified Code(s): F17.210 - Nicotine dependence, cigarettes, uncomplicated (8) Hepatitis C Current Visit: Yes Status: Chronic Qualifiers: Viral hepatitis chronicity: chronic Hepatic coma status: without hepatic coma Qualified Code(s): B18.2 - Chronic viral hepatitis C (9) Hypercholesterolemia Current Visit: Yes Status: Chronic (10) Lupus (systemic lupus erythematosus) Current Visit: Yes Status: Chronic Qualifiers: Systemic lupus erythematosus type: unspecified Systemic lupus erythematosus organ involvement: unspecified Qualified Code(s): M32.9 - Systemic lupus erythematosus, unspecified (11) PPD positive Current Visit: Yes Status: Chronic Comment: chest xray done 11/21/16 normal (12) Hypertension Current Visit: No Status: Chronic Qualifiers: Hypertension type: essential hypertension Qualified Code(s): I10 - Essential (primary) hypertension - Initial Treatment Plan Initial Treatment Plan: 1) Start Ambien 10 mg po HS prn for insomnia. Benefits vs Risks of medication discussed with patient and he agreed to take it. 2) Continue inpatient detoxification
[2017-08-09 09:23] LABS: HEMATOCRIT 42.3 % (35.4-49); HEMOGLOBIN 14.3 GM/dL (11.7-16.9); MCHC 33.8 g/dl (32.0-35.9); MEAN CELL VOLUME 85.8 fl (80-96); MEAN PLT VOLUME 7.6 fl (7.5-11.1); PLATELET COUNT 243 K/MM3 (134-434); RBC 4.94 M/mm3 (4.00-5.60); RDW 13.9 % (11.9-15.9); WHITE BLOOD COUNT 4.6 K/mm3 (4.0-10.0)
[2017-08-09 09:41] LABS: CHLORIDE 104 mmol/L (98-107); POTASSIUM 3.4 mmol/L (3.5-5.1); SODIUM 141 mmol/L (136-145)
[2017-08-09 09:52] LABS: ALBUMIN 3.4 g/dl (3.4-5.0); ALK PHOS 101 U/L (45-117); ANION GAP 7 (8-16); BILIRUBIN,TOTAL 0.4 mg/dL (0.2-1.0); BLOOD UREA NITROGEN 17 mg/dL (7-18); CALCIUM 8.2 mg/dL (8.5-10.1); CO2 30 mmol/L (21-32); GLUCOSE,RANDOM 108 mg/dL (74-106); SGOT/AST 29 U/L (15-37); SGPT/ALT 43 U/L (12-78); TOT PROT 6.6 g/dl (6.4-8.2)
[2017-08-09] MEDS ORDERED: METHADONE HCL 10 MG TABLET (FOR DETOX USE ONLY) PO SCH (10:00)
[2017-08-09] MEDS: PRENATAL VITAMINS W/ FOLIC ACID TABLET (FP) PO SCH (10:37)
[2017-08-09] MEDS: ASPIRIN 81 MG CHEWABLE TABLETS PO SCH (10:37)
[2017-08-09] MEDS: NICOTINE 21 MG/24 HOURS TOPICAL PATCH TD SCH (10:38)
[2017-08-09] MEDS: amLODIPine BESYLATE 10 MG TABLET (FP) PO SCH (11:38)
[2017-08-09 12:12] LABS: URINE APPEARANCE CLEAR; URINE BILIRUBIN NEGATIVE (<2.0 mg/dL); URINE COLOR YELLOW; URINE GLUCOSE (UA) NEGATIVE (NEGATIVE); URINE KETONE NEGATIVE (NEGATIVE); URINE LEUK ESTERASE NEGATIVE (NEGATIVE); URINE NITRITE NEGATIVE (NEGATIVE); URINE PROTEIN NEGATIVE (NEGATIVE); URINE UROBILINOGEN 4.0 E.U/dl mg/dL (0.2-1.0)
--- NOTE | 2017-08-09 13:01 | PN ---
[facility] CIWA - CIWA Score Nausea/Vomitin Muscle Tremors: 3 Anxiety: 3 Agitation: 2 Paroxysmal Sweats: 1-Minimal Palms Moist Orientation: 0-Oriented Tacttile Disturbances: 1-Very Mild Itch/Numbness Auditory Disturbances: 1-Very Mild Visual Disturbances: 0-None Headache: 2-Mild CIWA-Ar Total Score: 16 [facility] COWS - Scale Resting Pulse: 0= [place] 80 or Below Sweatin= Chills/Flushing Restless Observation: 3= Extraneous Movement Pupil Size: 1= Pupils >than Normal Bone or Joint Aches: 2= Severe Diffuse Aches Runny Nose/ Eye Tearin= Runny Nose/Eyes GI Upset > 30mins: 2= Nausea/Diarrhea Tremor Observation of Outstretched Hands: 2= Slight Tremor Visible Yawning Observation: 1= 1-2x During Session Anxiety or Irritability: 2=Irritable/Anxious Goose Flesh Skin: 0=Smooth Skin COWS Score: 16 [facility] Progress Note (SOAP) Subjective: alert,irritable,anxious,interrupted sleep,tremor,pain in the body and back Objective: 08/09/17 12:58 Vital Signs Temperature 98.8 F 08/09/17 09:12 Pulse Rate 66 08/09/17 09:12 Respiratory Rate 16 08/09/17 09:12 Blood Pressure 138/57 08/09/17 09:12 O2 Sat by Pulse Oximetry (%) ekg nsr qt 394/418 Laboratory Last Values WBC 4.6 K/mm3 (4.0-10.0) 08/09/17 07:45 RBC 4.94 M/mm3 (4.00-5.60) 08/09/17 07:45 Hgb 14.3 GM/dL (11.7-16.9) 08/09/17 07:45 Hct 42.3 % (35.4-49) 08/09/17 07:45 MCV 85.8 fl (80-96) 08/09/17 07:45 MCH 29.0 pg (25.7-33.7) 08/09/17 07:45 MCHC 33.8 g/dl (32.0-35.9) 08/09/17 07:45 RDW 13.9 % (11.9-15.9) 08/09/17 07:45 Plt Count 243 K/MM3 (134-434) 08/09/17 07:45 MPV 7.6 fl (7.5-11.1) 08/09/17 07:45 Sodium 141 mmol/L (136-145) 08/09/17 07:45 Potassium 3.4 mmol/L (3.5-5.1) L D 08/09/17 07:45 Chloride 104 mmol/L (98-107) 08/09/17 07:45 Carbon Dioxide 30 mmol/L (21-32) 08/09/17 07:45 Anion Gap 7 (8-16) L 08/09/17 07:45 BUN 17 mg/dL (7-18) 08/09/17 07:45 Creatinine 1.0 mg/dL (0.7-1.3) 08/09/17 07:45 Creat Clearance w eGFR > 60 (>60) 08/09/17 07:45 Random Glucose 108 mg/dL (74-106) H D 08/09/17 07:45 Calcium 8.2 mg/dL (8.5-10.1) L 08/09/17 07:45 Total Bilirubin 0.4 mg/dL (0.2-1.0) D 08/09/17 07:45 AST 29 U/L (15-37) D 08/09/17 07:45 ALT 43 U/L (12-78) 08/09/17 07:45 Alkaline Phosphatase 101 U/L (45-117) 08/09/17 07:45 Total Protein 6.6 g/dl (6.4-8.2) 08/09/17 07:45 Albumin 3.4 g/dl (3.4-5.0) 08/09/17 07:45 Urine Color Yellow 08/09/17 08:21 Urine Appearance Clear 08/09/17 08:21 Urine pH 6.0 (5.0-8.0) 08/09/17 08:21 Ur Specific [place] 1.027 (1.001-1.035) 08/09/17 08:21 Urine Protein Negative (NEGATIVE) 08/09/17 08:21 Urine Glucose (UA) Negative (NEGATIVE) 08/09/17 08:21 Urine Ketones Negative (NEGATIVE) 08/09/17 08:21 Urine Blood Negative (NEGATIVE) 08/09/17 08:21 Urine Nitrite Negative (NEGATIVE) 08/09/17 08:21 Urine Bilirubin Negative (<2.0 mg/dL) 08/09/17 08:21 Urine Urobilinogen 4.0 e.u/dl mg/dL (0.2-1.0) 08/09/17 08:21 Ur Leukocyte Esterase Negative (NEGATIVE) 08/09/17 08:21 RPR Titer Nonreactive (NONREACTIVE) 08/09/17 07:45 Assessment: 08/09/17 13:00 withdrawal symptom Plan: continue detox,k dure 20 meq po daily,k is 3.4
[2017-08-09] MEDS ORDERED: POTASSIUM CHLORIDE TABS 20 MEQ TABLET.ER (FP) PO ONE (13:20)
[2017-08-09] MEDS: ATORVASTATIN CA 40 MG TABLET (FP) PO SCH (22:18)
[2017-08-09] MEDS: THIAMINE HCL 100 MG TABLET (FP) PO SCH (22:18)
[2017-08-09] MEDS: MELATONIN 5 MG TABLETS PO PRN (22:20)
[2017-08-10] MEDS: ASPIRIN 81 MG CHEWABLE TABLETS PO SCH (10:32)
[2017-08-10] MEDS: METHADONE HCL 5 MG TABLET (FOR DETOX USE ONLY) PO SCH (10:32)
[2017-08-10] MEDS: NICOTINE 21 MG/24 HOURS TOPICAL PATCH TD SCH (10:32)
[2017-08-10] MEDS: amLODIPine BESYLATE 10 MG TABLET (FP) PO SCH (10:32)
[2017-08-10] MEDS: PRENATAL VITAMINS W/ FOLIC ACID TABLET (FP) PO SCH (10:32)
[2017-08-10] MEDS: diazePAM 5 MG TABLET PO SCH ×2 (10:32→22:29)
[2017-08-10] MEDS: POTASSIUM CHLORIDE TABS 20 MEQ TABLET.ER (FP) PO SCH (10:32)
--- NOTE | 2017-08-10 12:46 | PN ---
S CIWA - CIWA Score Nausea/Vomitin Muscle Tremors: 3 Anxiety: 3 Agitation: 2 Paroxysmal Sweats: 1-Minimal Palms Moist Orientation: 0-Oriented Tacttile Disturbances: 1-Very Mild Itch/Numbness Auditory Disturbances: 1-Very Mild Visual Disturbances: 0-None Headache: 2-Mild CIWA-Ar Total Score: 16 BHS COWS - Scale Resting Pulse: 0= [place] 80 or Below Sweatin= Chills/Flushing Restless Observation: 3= Extraneous Movement Pupil Size: 1= Pupils >than Normal Bone or Joint Aches: 2= Severe Diffuse Aches Runny Nose/ Eye Tearin= Nasal Congestion GI Upset > 30mins: 2= Nausea/Diarrhea Tremor Observation of Outstretched Hands: 2= Slight Tremor Visible Yawning Observation: 1= 1-2x During Session Anxiety or Irritability: 2=Irritable/Anxious Goose Flesh Skin: 0=Smooth Skin COWS Score: 15 [facility] Progress Note (SOAP) Subjective: ALERT,IRRITABLE,ANXIOUS,INTERRUPTED SLEEP,,TREMOR,PAIN IN THE BODY AND BACK Objective: 08/10/17 12:44 Vital Signs Temperature 98.2 F 08/10/17 09:24 Pulse Rate 65 08/10/17 09:24 Respiratory Rate 18 08/10/17 09:24 Blood Pressure 119/71 08/10/17 09:24 O2 Sat by Pulse Oximetry (%) Laboratory Last Values WBC 4.6 K/mm3 (4.0-10.0) 08/09/17 07:45 RBC 4.94 M/mm3 (4.00-5.60) 08/09/17 07:45 Hgb 14.3 GM/dL (11.7-16.9) 08/09/17 07:45 Hct 42.3 % (35.4-49) 08/09/17 07:45 MCV 85.8 fl (80-96) 08/09/17 07:45 MCH 29.0 pg (25.7-33.7) 08/09/17 07:45 MCHC 33.8 g/dl (32.0-35.9) 08/09/17 07:45 RDW 13.9 % (11.9-15.9) 08/09/17 07:45 Plt Count 243 K/MM3 (134-434) 08/09/17 07:45 MPV 7.6 fl (7.5-11.1) 08/09/17 07:45 Sodium 141 mmol/L (136-145) 08/09/17 07:45 Potassium 3.4 mmol/L (3.5-5.1) L D 08/09/17 07:45 Chloride 104 mmol/L (98-107) 08/09/17 07:45 Carbon Dioxide 30 mmol/L (21-32) 08/09/17 07:45 Anion Gap 7 (8-16) L 08/09/17 07:45 BUN 17 mg/dL (7-18) 08/09/17 07:45 Creatinine 1.0 mg/dL (0.7-1.3) 08/09/17 07:45 Creat Clearance w eGFR > 60 (>60) 08/09/17 07:45 Random Glucose 108 mg/dL (74-106) H D 08/09/17 07:45 Calcium 8.2 mg/dL (8.5-10.1) L 08/09/17 07:45 Total Bilirubin 0.4 mg/dL (0.2-1.0) D 08/09/17 07:45 AST 29 U/L (15-37) D 08/09/17 07:45 ALT 43 U/L (12-78) 08/09/17 07:45 Alkaline Phosphatase 101 U/L (45-117) 08/09/17 07:45 Total Protein 6.6 g/dl (6.4-8.2) 08/09/17 07:45 Albumin 3.4 g/dl (3.4-5.0) 08/09/17 07:45 Urine Color Yellow 08/09/17 08:21 Urine Appearance Clear 08/09/17 08:21 Urine pH 6.0 (5.0-8.0) 08/09/17 08:21 Ur Specific [place] 1.027 (1.001-1.035) 08/09/17 08:21 Urine Protein Negative (NEGATIVE) 08/09/17 08:21 Urine Glucose (UA) Negative (NEGATIVE) 08/09/17 08:21 Urine Ketones Negative (NEGATIVE) 08/09/17 08:21 Urine Blood Negative (NEGATIVE) 08/09/17 08:21 Urine Nitrite Negative (NEGATIVE) 08/09/17 08:21 Urine Bilirubin Negative (<2.0 mg/dL) 08/09/17 08:21 Urine Urobilinogen 4.0 e.u/dl mg/dL (0.2-1.0) 08/09/17 08:21 Ur Leukocyte Esterase Negative (NEGATIVE) 08/09/17 08:21 RPR Titer Nonreactive (NONREACTIVE) 08/09/17 07:45 Assessment: 08/10/17 12:45 WITHDRAWAL SYMPTOM Plan: CONTINUE DETOX,ON K DUR FOR HYPOKALEMIA
[2017-08-10] MEDS: THIAMINE HCL 100 MG TABLET (FP) PO SCH (22:29)
[2017-08-10] MEDS: ATORVASTATIN CA 40 MG TABLET (FP) PO SCH (22:29)
[2017-08-10] MEDS: MELATONIN 5 MG TABLETS PO PRN (22:31)
[2017-08-11] MEDS: METHADONE HCL 5 MG TABLET (FOR DETOX USE ONLY) PO SCH (10:17)
[2017-08-11] MEDS: diazePAM 5 MG TABLET PO SCH ×2 (10:18→22:18)
[2017-08-11] MEDS: PRENATAL VITAMINS W/ FOLIC ACID TABLET (FP) PO SCH (10:18)
[2017-08-11] MEDS: NICOTINE 21 MG/24 HOURS TOPICAL PATCH TD SCH (10:18)
[2017-08-11] MEDS: ASPIRIN 81 MG CHEWABLE TABLETS PO SCH (10:18)
[2017-08-11] MEDS: amLODIPine BESYLATE 10 MG TABLET (FP) PO SCH (10:18)
[2017-08-11] MEDS: POTASSIUM CHLORIDE TABS 20 MEQ TABLET.ER (FP) PO SCH (10:19)
--- NOTE | 2017-08-11 12:03 | PN ---
[facility] Progress Note (SOAP) Subjective: ALERT,IRRITABLE,ANXIOUS,INTERRUPTED SLEEP,PAIN IN THE BODY Objective: 08/11/17 12:02 Vital Signs Temperature 97.5 F L 08/11/17 10:33 Pulse Rate 77 08/11/17 10:33 Respiratory Rate 18 08/11/17 10:33 Blood Pressure 126/81 08/11/17 10:33 O2 Sat by Pulse Oximetry (%) Assessment: 08/11/17 12:03 WITHDRAWAL SYMPTOM Plan: CONTINUE DETOX
[2017-08-11] MEDS: THIAMINE HCL 100 MG TABLET (FP) PO SCH (22:17)
[2017-08-11] MEDS: MELATONIN 5 MG TABLETS PO PRN (22:17)
[2017-08-11] MEDS: ATORVASTATIN CA 40 MG TABLET (FP) PO SCH (22:18)
[2017-08-12] MEDS: hydrOXYzine PAMOATE 25 MG CAPSULE (FP) PO PRN ×2 (01:18→22:22)
[2017-08-12] MEDS ORDERED: METHADONE HCL 10 MG TABLET (FOR DETOX USE ONLY) PO SCH (10:00)
[2017-08-12] MEDS ORDERED: diazePAM 5 MG TABLET PO SCH (10:00)
[2017-08-12] MEDS: ASPIRIN 81 MG CHEWABLE TABLETS PO SCH (10:39)
[2017-08-12] MEDS: PRENATAL VITAMINS W/ FOLIC ACID TABLET (FP) PO SCH (10:40)
[2017-08-12] MEDS: NICOTINE 21 MG/24 HOURS TOPICAL PATCH TD SCH (10:40)
[2017-08-12] MEDS: amLODIPine BESYLATE 10 MG TABLET (FP) PO SCH (10:40)
[2017-08-12] MEDS: POTASSIUM CHLORIDE TABS 20 MEQ TABLET.ER (FP) PO SCH (10:40)
--- NOTE | 2017-08-12 11:01 | PN ---
[facility] Progress Note (SOAP) Subjective: ALERT,IRRITABLE,ANXIOUS,INTERRUPTED SLEEP Objective: 08/12/17 11:00 Vital Signs Temperature 98.1 F 08/12/17 09:54 Pulse Rate 70 08/12/17 09:54 Respiratory Rate 19 08/12/17 09:54 Blood Pressure 119/69 08/12/17 09:54 O2 Sat by Pulse Oximetry (%) Assessment: 08/12/17 11:00 WITHDRAWAL SYMPTOM Plan: CONTINUE DETOX,DISCHARGE IN AM
[2017-08-12] MEDS: THIAMINE HCL 100 MG TABLET (FP) PO SCH (22:18)
[2017-08-12] MEDS: ATORVASTATIN CA 40 MG TABLET (FP) PO SCH (22:18)
[2017-08-13] MEDS ORDERED: METHADONE HCL 5 MG TABLET (FOR DETOX USE ONLY) PO SCH (06:00)
[2017-08-13 07:30] VITALS: PULSE 68
--- NOTE | 2017-08-13 09:22 | PN ---
S Progress Note (SOAP) Subjective: alert,no complaint Objective: 08/13/17 09:27 Vital Signs Temperature 97.3 F L 08/13/17 07:29 Pulse Rate 68 08/13/17 07:29 Respiratory Rate 20 08/13/17 07:29 Blood Pressure 111/74 08/13/17 07:29 O2 Sat by Pulse Oximetry (%) Assessment: 08/13/17 09:28 detox completed,no withdrawal symptom Plan: discharge today,follow up with after care program as arrangement
--- NOTE | 2017-08-13 09:36 | DS ---
[facility] Detox Discharge Summary Admission Date: 08/08/17 Discharge Date: 08/13/17 - History Present History: Alcohol Dependence, Opioid Dependence Additional Comments: follow up with after care program as arrangement Pertinent Past History: hepatitis c weigh tloss nicotine dependence sle hypercho;esterolemia - Physical Exam Results Vital Signs: Vital Signs Temperature 97.3 F L 08/13/17 07:29 Pulse Rate 68 08/13/17 07:29 Respiratory Rate 20 08/13/17 07:29 Blood Pressure 111/74 08/13/17 07:29 O2 Sat by Pulse Oximetry (%) Pertinent Admission Physical Exam Findings: withdrawal signs and symptom Laboratory Last Values WBC 4.6 K/mm3 (4.0-10.0) 08/09/17 07:45 RBC 4.94 M/mm3 (4.00-5.60) 08/09/17 07:45 Hgb 14.3 GM/dL (11.7-16.9) 08/09/17 07:45 Hct 42.3 % (35.4-49) 08/09/17 07:45 MCV 85.8 fl (80-96) 08/09/17 07:45 MCH 29.0 pg (25.7-33.7) 08/09/17 07:45 MCHC 33.8 g/dl (32.0-35.9) 08/09/17 07:45 RDW 13.9 % (11.9-15.9) 08/09/17 07:45 Plt Count 243 K/MM3 (134-434) 08/09/17 07:45 MPV 7.6 fl (7.5-11.1) 08/09/17 07:45 Sodium 141 mmol/L (136-145) 08/09/17 07:45 Potassium 3.4 mmol/L (3.5-5.1) L D 08/09/17 07:45 Chloride 104 mmol/L (98-107) 08/09/17 07:45 Carbon Dioxide 30 mmol/L (21-32) 08/09/17 07:45 Anion Gap 7 (8-16) L 08/09/17 07:45 BUN 17 mg/dL (7-18) 08/09/17 07:45 Creatinine 1.0 mg/dL (0.7-1.3) 08/09/17 07:45 Creat Clearance w eGFR > 60 (>60) 08/09/17 07:45 Random Glucose 108 mg/dL (74-106) H D 08/09/17 07:45 Calcium 8.2 mg/dL (8.5-10.1) L 08/09/17 07:45 Total Bilirubin 0.4 mg/dL (0.2-1.0) D 08/09/17 07:45 AST 29 U/L (15-37) D 08/09/17 07:45 ALT 43 U/L (12-78) 08/09/17 07:45 Alkaline Phosphatase 101 U/L (45-117) 08/09/17 07:45 Total Protein 6.6 g/dl (6.4-8.2) 08/09/17 07:45 Albumin 3.4 g/dl (3.4-5.0) 08/09/17 07:45 Urine Color Yellow 08/09/17 08:21 Urine Appearance Clear 08/09/17 08:21 Urine pH 6.0 (5.0-8.0) 08/09/17 08:21 Ur Specific Hermann 1.027 (1.001-1.035) 08/09/17 08:21 Urine Protein Negative (NEGATIVE) 08/09/17 08:21 Urine Glucose (UA) Negative (NEGATIVE) 08/09/17 08:21 Urine Ketones Negative (NEGATIVE) 08/09/17 08:21 Urine Blood Negative (NEGATIVE) 08/09/17 08:21 Urine Nitrite Negative (NEGATIVE) 08/09/17 08:21 Urine Bilirubin Negative (<2.0 mg/dL) 08/09/17 08:21 Urine Urobilinogen 4.0 e.u/dl mg/dL (0.2-1.0) 08/09/17 08:21 Ur Leukocyte Esterase Negative (NEGATIVE) 08/09/17 08:21 RPR Titer Nonreactive (NONREACTIVE) 08/09/17 07:45 Vital Signs Temperature 97.3 F L 08/13/17 07:29 Pulse Rate 68 08/13/17 07:29 Respiratory Rate 20 08/13/17 07:29 Blood Pressure 111/74 08/13/17 07:29 O2 Sat by Pulse Oximetry (%) - Treatment Hospital Course: Detox Protocol Followed, Detoxed Safely, Responded well, Discharged Condition Good Patient has Accepted a Rehab Referral to: declined - Medication Discharge Medications: Ambulatory Orders Aspirin [ASA -] 81 mg PO DAILY #30 tab 06/12/16 Atorvastatin Ca [Lipitor] 40 mg PO HS #30 tab 05/14/17 Mirtazapine [Remeron -] 30 mg PO HS #30 tablet 07/03/17 Risperidone [Risperdal -] 3 mg PO HS #30 tablet 07/03/17 Amlodipine Besylate [Norvasc -] 10 mg PO DAILY 08/08/17 Bupropion HCl [Bupropion HCl ER] 200 mg PO DAILY 08/08/17 Zolpidem Tartrate [Ambien] 10 mg PO HS 08/08/17 - Diagnosis (1) Opioid dependence with withdrawal Current Visit: Yes Status: Acute (2) Alcohol dependence with uncomplicated withdrawal Current Visit: Yes Status: Acute (3) Weight loss Current Visit: Yes Status: Acute (4) Hepatitis C Current Visit: Yes Status: Chronic Qualifiers: Viral hepatitis chronicity: chronic Hepatic coma status: without hepatic coma Qualified Code(s): B18.2 - Chronic viral hepatitis C (5) Nicotine dependence Current Visit: Yes Status: Chronic Qualifiers: Nicotine product type: cigarettes Substance use status: uncomplicated Qualified Code(s): F17.210 - Nicotine dependence, cigarettes, uncomplicated - AMA Did Patient Leave Against Medical Advice: No
[2017-08-13] MEDS: PRENATAL VITAMINS W/ FOLIC ACID TABLET (FP) PO SCH (09:50)
[2017-08-13] MEDS: ASPIRIN 81 MG CHEWABLE TABLETS PO SCH (09:50)
[2017-08-13] MEDS: POTASSIUM CHLORIDE TABS 20 MEQ TABLET.ER (FP) PO SCH (09:50)
[2017-08-13] MEDS: amLODIPine BESYLATE 10 MG TABLET (FP) PO SCH (09:50)
[2017-08-13 09:55] VITALS: BP 117/69; TEMP 97.9
== END 2017-08-13 10:00 | disposition home or self-care (01) | DRG 773 ==
LOC: YASAS 09:52 → Y6N 14:13
PROVIDERS: ADMIT Surgery; ATTEND Surgery
PROC: HZ2ZZZZ Detoxification Services for Substance Abuse Treatment (ICD-10-PCS; principal; 2017-08-08)
DX: F11.23 Opioid dependence with withdrawal (principal); F10.230 Alcohol dependence with withdrawal, uncomplicated; F17.210 Nicotine dependence, cigarettes, uncomplicated; F25.9 Schizoaffective disorder, unspecified; F19.282 Other psychoactive substance dependence with psychoactive substance-induced sleep disorder; I10 Essential (primary) hypertension; B18.2 Chronic viral hepatitis C; M32.9 Systemic lupus erythematosus, unspecified; R76.11 Nonspecific reaction to tuberculin skin test without active tuberculosis; L98.8 Other specified disorders of the skin and subcutaneous tissue; Z88.8 Allergy status to other drugs, medicaments and biological substances; Z87.898 Personal history of other specified conditions
CPT/HCPCS: 36415; 80053; 81003; 85027; 86593; 93005; 93010

== ENCOUNTER 2018-03-17 08:54 | Inpatient (IN) | payer OTHER ==
[2018-03-17 09:21] VITALS: BMI 29.1
--- NOTE | 2018-03-17 11:12 | HP ---
COWS - Scale Resting Pulse: 1= [place] 81-100 Sweatin= Chills/Flushing Restless Observation: 3= Extraneous Movement Pupil Size: 1= Pupils >than Normal Bone or Joint Aches: 2= Severe Diffuse Aches Runny Nose/ Eye Tearin= Runny Nose/Eyes GI Upset > 30mins: 2= Nausea/Diarrhea Tremor Observation: 2= Slight Tremor Visible Yawning Observation: 2= >3x During Session Anxiety or Irritability: 2=Irritable/Anxious Goose Flesh Skin: 0=Smooth Skin COWS Score: 18 CIWA Score Nausea/Vomitin Muscle Tremors: 2 Anxiety: 2 Agitation: 2 Paroxysmal Sweats: 1-Minimal Palms Moist Orientation: 0-Oriented Tacttile Disturbances: 1-Very Mild Itch/Numbness Auditory Disturbances: 0-None Visual Disturbances: 1-Very Mild Sensitivity Headache: 2-Mild CIWA-Ar Total Score: 13 - Admission Criteria OASAS Guidelines: Admission for Medically Managed Detox: Requires at least one of the followin. CIWA greater than 12 2. Seizures within the past 24 hours 3. Delirium tremens within the past 24 hours 4. Hallucinations within the past 24 hours 5. Acute intervention needed for co occurring medical disorder 6. Acute intervention needed for co occurring psychiatric disorder 7. Severe withdrawal that cannot be handled at a lower level of care (continued vomiting, continued diarrhea, abnormal vital signs) requiring intravenous medication and/or fluids 8. Patient presents the following: CIWA greater than 12 Admission Criteria Met: Admission criteria met Admission ROS [facility] - [facility] Chief Complaint: i need help to stop using heroin and alcohol,cocaine Allergies/Adverse Reactions: Allergies Allergy/AdvReac Type Severity Reaction Status Date / Time chlordiazepoxide Allergy Severe Itching Verified 03/17/18 10:10 [From Librium] History of Present Illness: this 57 years old male with heroin,alcohol,cocaine dependence,seeking detox, withdrawal symptom,last detox 03/02 did not recall facility hard of hearing both ears history of hypertension hepatitis c nicotine dependence multiple admissions in detox,keep relapsing depression non compliance schizophrenia positive ppd plan for uotpatient program Exam Limitations: No Limitations - Ebola screening Have you traveled outside of the country in the last 21 days: No Have you had contact with anyone from an Ebola affected area: No Have you been sick,other than usual withdrawal symptoms: No Do you have a fever: No - Review of Systems Constitutional: Chills, Loss of Appetite, Malaise, Night Sweats, Changes in sleep, Weakness EENT: reports: Tearing, Nose Congestion, Other (hard of hearing) Respiratory: reports: No Symptoms reported Cardiac: reports: No Symptoms Reported GI: reports: Diarrhea, Nausea, Vomiting, Abdominal cramping : reports: No Symptoms Reported Musculoskeletal: reports: Back Pain, Joint Pain, Muscle Pain, Joint Stiffness Integumentary: reports: Dryness Neuro: reports: Headache, Tremors Endocrine: reports: No Symptoms Reported Hematology: reports: No Symptoms Reported Psychiatric: reports: No Sypmtoms Reported, Judgement Intact, Mood/Affect Appropiate, Orientated x3, other (schzophrenia) Patient History - Patient Medical History Hx Anemia: No Hx Asthma: No Hx Chronic Obstructive Pulmonary Disease (COPD): No Hx Cancer: No Hx Cardiac Disorders: No Hx Congestive Heart Failure: No Hx Hypertension: Yes (on med ) Hx Hypercholesterolemia: No (Stopped meds ) Hx Pacemaker: No HX Cerebrovascular Accident: No Hx Seizures: No Hx Dementia: No Hx Diabetes: No Hx Gastrointestinal Disorders: No Hx Liver Disease: No Hx Genitourinary Disorders: No Hx Sexually Transmitted Disorders: No Hx Renal Disease (ESRD): No Hx Thyroid Disease: No Hx Human Immunodeficiency Virus (HIV): No Hx Hepatitis C: Yes (denies treatment) Hx Depression: Yes Hx Suicide Attempt: No Hx Bipolar Disorder: No Hx Schizophrenia: Yes Other Medical History: no suicidal,no homicidal - Patient Surgical History Past Surgical History: No Hx Neurologic Surgery: No Hx Cataract Extraction: No Hx Cardiac Surgery: No Hx Lung Surgery: No Hx Breast Surgery: No Hx Breast Biopsy: No Hx Abdominal Surgery: No Hx Appendectomy: No Hx Cholecystectomy: No Hx Genitourinary Surgery: No Hx Section: No Hx Orthopedic Surgery: No Anesthesia Reaction: No - PPD History Previous Implant?: Yes Documented Results: Positive w/proof Implanted On Prior [facility] Admission?: Yes Date: 11/21/16 Results: CXR(-)11/21/16 PPD to be Administered?: No - Smoking Cessation Smoking history: Current every day smoker Have you smoked in the past 12 months: Yes Aproximately how many cigarettes per day: 20 Cigars Per Day: 0 Hx Chewing Tobacco Use: No Initiated information on smoking cessation: Yes 'Breaking Loose' booklet given: 03/17/18 - Substance & Tx. History Hx Alcohol Use: Yes Hx Substance Use: Yes Substance Use Type: Alcohol, Cocaine, Heroin Hx Substance Use Treatment: Yes (03/02 did not recall facility) - Substances Abused Heroin Route: Inhalation Frequency: Daily Amount used: 10 bags Age of first use: 15 Date of Last Use: 03/16/18 Cocaine Route: Inhalation Frequency: Daily Amount used: $40 Age of first use: 15 Date of Last Use: 03/16/18 Alcohol-vodka/beer Route: Oral Frequency: Daily Amount used: 1 pt./1-6 pk. Age of first use: 15 Date of Last Use: 03/16/18 Family Disease History - Family Disease History Family Disease History: Heart Disease: Father (, alcohol), Mother ( alcohol, htn ,), Brother (three living), Other: Father, Mother, Brother , Sister (one living), Daughter (one in [place]) Admission Physical Exam [facility] - Vital Signs Vital Signs: Vital Signs - 24 hr 03/17/18 09:12 Temperature 97.3 F L Pulse Rate 90 Respiratory 20 Rate Blood Pressure 127/80 - Physical General Appearance: Yes: Moderate Distress, Tremorous, Irritable, Sweating, Anxious HEENTM: Yes: Normal ENT Inspection, PADDY, Pharynx Normal Respiratory: Yes: Lungs Clear, Normal Breath Sounds, No Respiratory Distress Neck: Yes: Within Normal Limits, Supple, Trachea in good position Breast: Yes: Within Normal Limits Cardiology: Yes: Within Normal Limits, Regular Rhythm, Regular Rate, S1, S2 Abdominal: Yes: Within Normal Limits, Normal Bowel Sounds, Non Tender, Flat, Soft Genitourinary: Yes: Within Normal Limits Musculoskeletal: Yes: Back pain, Joint Stiffness, Muscle Pain Extremities: Yes: Within Normal Limits, Normal Range of Motion, Tremors, Inflammation Neurological: Yes: Fully Oriented, Alert, Motor Strength 5/5 Integumentary: Yes: Dry Lymphatic: Yes: Within Normal Limits - Diagnostic (1) Opioid dependence with withdrawal Current Visit: No Status: Acute Comment: . (2) Alcohol dependence with uncomplicated withdrawal Current Visit: No Status: Acute (3) Cocaine dependence Current Visit: No Status: Chronic Qualifiers: Substance use status: uncomplicated Qualified Code(s): F14.20 - Cocaine dependence, uncomplicated Comment: . (4) Hepatitis C Current Visit: No Status: Chronic Qualifiers: Viral hepatitis chronicity: chronic Hepatic coma status: without hepatic coma Qualified Code(s): B18.2 - Chronic viral hepatitis C (5) Hypercholesterolemia Current Visit: No Status: Chronic (6) Hypertension Current Visit: No Status: Chronic Qualifiers: Hypertension type: essential hypertension Qualified Code(s): I10 - Essential (primary) hypertension (7) Nicotine dependence Current Visit: No Status: Chronic Qualifiers: Nicotine product type: cigarettes Substance use status: uncomplicated Qualified Code(s): F17.210 - Nicotine dependence, cigarettes, uncomplicated Comment: . (8) PPD positive Current Visit: No Status: Chronic Comment: chest xray done 11/21/16 normal (9) Schizoaffective disorder Current Visit: No Status: Chronic Qualifiers: Schizoaffective disorder type: unspecified Qualified Code(s): F25.9 - Schizoaffective disorder, unspecified Comment: . (10) Hard of hearing Current Visit: Yes Status: Acute (11) Low back pain Current Visit: Yes Status: Acute Cleared for Admission [facility] - Detox or Rehab [facility] Level of Care: Medically Managed Detox Regimen/Protocol: Methadone/Valium [facility] Breath Alcohol Content Breath Alcohol Content: 0.054 Urine Drug Screen - Results Drug Screen Negative: No Urine Drug Screen Results: AMBAR-Cocaine, OPI-Opiates, BZO-Benzodiazepines, MTD- Methadone, OXY-Oxycodone
[2018-03-17] MEDS ORDERED: P-EPHED 60MG/TRIPROLIDI 2.5MG TABLET PO PRN (11:21)
[2018-03-17] MEDS ORDERED: LOPERAMIDE HCL 2 MG CAPSULE PO PRN (11:21)
[2018-03-17] MEDS ORDERED: MAG HYDROX/AL HYDROX/SIMETH 30 ML UNIT-DOSE CUP PO PRN (11:21)
[2018-03-17] MEDS ORDERED: MAGNESIUM CITRATE 300 ML BOTTLE PO PRN (11:21)
[2018-03-17] MEDS ORDERED: guaiFENesin/D-METHORPHAN HB 10 ML UNIT-DOSE CUPS PO PRN (11:21)
[2018-03-17] MEDS ORDERED: MENTHOL/PHENOL 1 EACH UD MM PRN (11:21)
[2018-03-17] MEDS ORDERED: IBUPROFEN 400 MG TABLET (FP) PO PRN (11:21)
[2018-03-17] MEDS ORDERED: ACETAMINOPHEN 325 MG TABLET (FP) PO PRN (11:21)
[2018-03-17] MEDS ORDERED: MAGNESIUM HYDROX 2400MG/30ML ORAL SUSPENSION 30 ML CUP PO PRN (11:21)
[2018-03-17] MEDS ORDERED: COLLOIDAL OATMEAL 1 BAR EACH TP PRN (11:27)
[2018-03-17] MEDS ORDERED: diazePAM 5 MG TABLET PO ONE (11:35)
[2018-03-17] MEDS ORDERED: METHADONE HCL 10 MG TABLET (FOR DETOX USE ONLY) PO ONE ×2 (11:35→23:00)
[2018-03-17] MEDS: NICOTINE 21 MG/24 HOURS TOPICAL PATCH TD SCH (12:17)
[2018-03-17] MEDS: diazePAM 5 MG TABLET PO SCH ×2 (13:29→22:08)
[2018-03-17 15:47] LABS: CHOLESTEROL 161 mg/dL (50-200); HDL CHOLESTEROL 54 mg/dL (40-60); TRIGLYCERIDES 76 mg/dL (0-150)
[2018-03-17] MEDS: THIAMINE HCL 100 MG TABLET (FP) PO SCH (22:08)
[2018-03-18] MEDS: diazePAM 5 MG TABLET PO SCH ×3 (05:47→22:36)
--- NOTE | 2018-03-18 09:29 | PN ---
S CIWA - CIWA Score Nausea/Vomitin Muscle Tremors: 2 Anxiety: 2 Agitation: 2 Paroxysmal Sweats: 1-Minimal Palms Moist Orientation: 0-Oriented Tacttile Disturbances: 1-Very Mild Itch/Numbness Auditory Disturbances: 1-Very Mild Visual Disturbances: 0-None Headache: 1-Very Mild CIWA-Ar Total Score: 12 [facility] COWS - Scale Resting Pulse: 0= [place] 80 or Below Sweatin= Chills/Flushing Restless Observation: 1= Difficult to Sit Still Pupil Size: 1= Pupils >than Normal Bone or Joint Aches: 2= Severe Diffuse Aches Runny Nose/ Eye Tearin= Runny Nose/Eyes GI Upset > 30mins: 2= Nausea/Diarrhea Tremor Observation of Outstretched Hands: 2= Slight Tremor Visible Yawning Observation: 1= 1-2x During Session Anxiety or Irritability: 2=Irritable/Anxious Goose Flesh Skin: 0=Smooth Skin COWS Score: 14 S Progress Note (SOAP) Subjective: alert,irritable,anxious,interrupted sleep,tremor,pain in the body and back Objective: 03/18/18 09:28 Vital Signs Temperature 98.1 F 03/18/18 09:23 Pulse Rate 72 03/18/18 09:23 Respiratory Rate 18 03/18/18 09:23 Blood Pressure 109/55 L 03/18/18 09:23 O2 Sat by Pulse Oximetry (%) Laboratory Last Values Triglycerides 76 mg/dL (0-150) 03/17/18 11:31 Cholesterol 161 mg/dL (50-200) 03/17/18 11:31 Total LDL Cholesterol 93 mg/dL (5-100) 03/17/18 11:31 HDL Cholesterol 54 mg/dL (40-60) 03/17/18 11:31 labs pending Assessment: 03/18/18 09:29 withdrawal symptom Plan: continue detox
[2018-03-18] MEDS ORDERED: METHADONE HCL 10 MG TABLET (FOR DETOX USE ONLY) PO SCH (10:00)
[2018-03-18] MEDS: amLODIPine BESYLATE 10 MG TABLET (FP) PO SCH (10:04)
[2018-03-18] MEDS: diazePAM 5 MG TABLET PO PRN (10:04)
[2018-03-18] MEDS: PRENATAL VITAMINS W/ FOLIC ACID TABLET (FP) PO SCH (10:04)
[2018-03-18] MEDS: ASPIRIN 81 MG CHEWABLE TABLETS PO SCH (10:04)
[2018-03-18] MEDS: NICOTINE 21 MG/24 HOURS TOPICAL PATCH TD SCH (10:05)
[2018-03-18 10:20] LABS: HEMATOCRIT 43.9 % (35.4-49); HEMOGLOBIN 14.6 GM/dL (11.7-16.9); MCH 29.2 pg (25.7-33.7); MCHC 33.2 g/dl (32.0-35.9); MEAN CELL VOLUME 87.8 fl (80-96); MEAN PLT VOLUME 8.3 fl (7.5-11.1); PLATELET COUNT 317 K/MM3 (134-434); RDW 13.5 % (11.9-15.9); WHITE BLOOD COUNT 5.7 K/mm3 (4.0-10.0)
[2018-03-18 10:32] LABS: ALBUMIN 4.1 g/dl (3.4-5.0); ALK PHOS 85 U/L (45-117); ANION GAP 10 MMOL/L (8-16); BILIRUBIN,TOTAL 0.3 mg/dL (0.2-1); BLOOD UREA NITROGEN 13 mg/dL (7-18); CALCIUM 9.1 mg/dL (8.5-10.1); CHLORIDE 102 mmol/L (98-107); CO2 28 mmol/L (21-32); GLUCOSE,RANDOM 93 mg/dL (74-106); POTASSIUM 3.9 mmol/L (3.5-5.1); SGOT/AST 24 U/L (15-37); SGPT/ALT 30 U/L (13-61); SODIUM 140 mmol/L (136-145); TOT PROT 7.3 g/dl (6.4-8.2)
[2018-03-18] MEDS: THIAMINE HCL 100 MG TABLET (FP) PO SCH (22:36)
[2018-03-19] MEDS: amLODIPine BESYLATE 10 MG TABLET (FP) PO SCH (10:45)
[2018-03-19] MEDS: diazePAM 5 MG TABLET PO SCH ×2 (10:45→22:51)
[2018-03-19] MEDS: ASPIRIN 81 MG CHEWABLE TABLETS PO SCH (10:45)
[2018-03-19] MEDS: PRENATAL VITAMINS W/ FOLIC ACID TABLET (FP) PO SCH (10:45)
[2018-03-19] MEDS: NICOTINE 21 MG/24 HOURS TOPICAL PATCH TD SCH (10:46)
[2018-03-19] MEDS: METHADONE HCL 5 MG TABLET (FOR DETOX USE ONLY) PO SCH (10:46)
--- NOTE | 2018-03-19 17:26 | PN ---
[facility] CIWA - CIWA Score Nausea/Vomitin-No Nausea/No Vomiting Muscle Tremors: None Anxiety: 3 Agitation: 1-Slight > Activity Paroxysmal Sweats: 3 Orientation: 2-Disoriented Date<2 days Tacttile Disturbances: 2-Mild Itch/Numbness/Burn Auditory Disturbances: 0-None Visual Disturbances: 0-None Headache: 0-None Present CIWA-Ar Total Score: 11 S COWS - Scale Resting Pulse: 0= [place] 80 or Below Sweatin= Chills/Flushing Restless Observation: 0= Sits Still Pupil Size: 0= Normal to Room Light Bone or Joint Aches: 2= Severe Diffuse Aches Runny Nose/ Eye Tearin= Nasal Congestion GI Upset > 30mins: 0= None Tremor Observation of Outstretched Hands: 0= None Yawning Observation: 1= 1-2x During Session Anxiety or Irritability: 2=Irritable/Anxious Goose Flesh Skin: 0=Smooth Skin COWS Score: 7 S Progress Note (SOAP) Subjective: Sweating, Body Aches. Objective: PATIENT A & O X 2 (UNCERTAIN ABOUT CURRENT DAY / DATE). PATIENT OBSERVED AMBULATING ON UNIT. IN NO ACUTE DISTRESS. 03/19/18 17:27 Vital Signs Temperature 96.4 F L 03/19/18 14:30 Pulse Rate 76 03/19/18 14:30 Respiratory Rate 18 03/19/18 14:30 Blood Pressure 140/86 03/19/18 14:30 O2 Sat by Pulse Oximetry (%) Laboratory Tests 03/17/18 03/18/18 03/18/18 11:31 06:00 06:00 WBC 5.7 RBC 5.00 Hgb 14.6 Hct 43.9 MCV 87.8 MCH 29.2 MCHC 33.2 RDW 13.5 Plt Count 317 D MPV 8.3 Sodium 140 Potassium 3.9 Chloride 102 Carbon Dioxide 28 Anion Gap 10 BUN 13 Creatinine 1.0 Creat Clearance w eGFR > 60 Random Glucose 93 Calcium 9.1 Total Bilirubin 0.3 AST 24 ALT 30 Alkaline Phosphatase 85 Total Protein 7.3 Albumin 4.1 Triglycerides 76 Cholesterol 161 Total LDL Cholesterol 93 HDL Cholesterol 54 RPR Titer 03/18/18 06:00 WBC RBC Hgb Hct MCV MCH MCHC RDW Plt Count MPV Sodium Potassium Chloride Carbon Dioxide Anion Gap BUN Creatinine Creat Clearance w eGFR Random Glucose Calcium Total Bilirubin AST ALT Alkaline Phosphatase Total Protein Albumin Triglycerides Cholesterol Total LDL Cholesterol HDL Cholesterol RPR Titer Nonreactive LABS NOTED. Assessment: 03/19/18 17:28 WITHDRAWAL SYMPTOMS. Plan: CONTINUE DETOX. INCREASE DAILY PO FLUID INTAKE.
[2018-03-19] MEDS: THIAMINE HCL 100 MG TABLET (FP) PO SCH (22:51)
[2018-03-19] MEDS: MELATONIN 5 MG TABLETS PO PRN (22:51)
[2018-03-20] MEDS: diazePAM 5 MG TABLET PO PRN (05:39)
--- NOTE | 2018-03-20 09:13 | PN ---
[facility] Progress Note (SOAP) Subjective: alert,irritable,anxious,interrupted sleep,pain in the body Objective: 03/20/18 09:12 Vital Signs Temperature 96.8 F L 03/20/18 06:44 Pulse Rate 67 03/20/18 06:44 Respiratory Rate 16 03/20/18 06:44 Blood Pressure 128/65 03/20/18 06:44 O2 Sat by Pulse Oximetry (%) Assessment: 03/20/18 09:12 withdrawal symptom Plan: continue detox
[2018-03-20] MEDS: PRENATAL VITAMINS W/ FOLIC ACID TABLET (FP) PO SCH (11:18)
[2018-03-20] MEDS: METHADONE HCL 5 MG TABLET (FOR DETOX USE ONLY) PO SCH (11:18)
[2018-03-20] MEDS: NICOTINE 21 MG/24 HOURS TOPICAL PATCH TD SCH (11:19)
[2018-03-20] MEDS: diazePAM 5 MG TABLET PO SCH ×2 (11:19→22:15)
[2018-03-20] MEDS: ASPIRIN 81 MG CHEWABLE TABLETS PO SCH (11:19)
[2018-03-20] MEDS: amLODIPine BESYLATE 10 MG TABLET (FP) PO SCH (11:19)
[2018-03-20] MEDS: THIAMINE HCL 100 MG TABLET (FP) PO SCH (22:14)
[2018-03-20] MEDS: MELATONIN 5 MG TABLETS PO PRN (22:15)
[2018-03-21] MEDS ORDERED: diazePAM 5 MG TABLET PO SCH (10:00)
[2018-03-21] MEDS ORDERED: METHADONE HCL 10 MG TABLET (FOR DETOX USE ONLY) PO SCH (10:00)
[2018-03-21] MEDS: PRENATAL VITAMINS W/ FOLIC ACID TABLET (FP) PO SCH (10:11)
[2018-03-21] MEDS: amLODIPine BESYLATE 10 MG TABLET (FP) PO SCH (10:11)
[2018-03-21] MEDS: ASPIRIN 81 MG CHEWABLE TABLETS PO SCH (10:11)
[2018-03-21] MEDS: NICOTINE 21 MG/24 HOURS TOPICAL PATCH TD SCH (10:11)
--- NOTE | 2018-03-21 10:56 | PN ---
[facility] Progress Note (SOAP) Subjective: feeling better mild gi distress less sweat no tremor no body aches Objective: 03/21/18 12:25 Vital Signs Temperature 97.7 F 03/21/18 09:41 Pulse Rate 88 03/21/18 09:41 Respiratory Rate 18 03/21/18 09:41 Blood Pressure 102/68 03/21/18 09:41 O2 Sat by Pulse Oximetry (%) Laboratory Last Values WBC 5.7 K/mm3 (4.0-10.0) 03/18/18 06:00 RBC 5.00 M/mm3 (4.00-5.60) 03/18/18 06:00 Hgb 14.6 GM/dL (11.7-16.9) 03/18/18 06:00 Hct 43.9 % (35.4-49) 03/18/18 06:00 MCV 87.8 fl (80-96) 03/18/18 06:00 MCH 29.2 pg (25.7-33.7) 03/18/18 06:00 MCHC 33.2 g/dl (32.0-35.9) 03/18/18 06:00 RDW 13.5 % (11.9-15.9) 03/18/18 06:00 Plt Count 317 K/MM3 (134-434) D 03/18/18 06:00 MPV 8.3 fl (7.5-11.1) 03/18/18 06:00 Sodium 140 mmol/L (136-145) 03/18/18 06:00 Potassium 3.9 mmol/L (3.5-5.1) 03/18/18 06:00 Chloride 102 mmol/L (98-107) 03/18/18 06:00 Carbon Dioxide 28 mmol/L (21-32) 03/18/18 06:00 Anion Gap 10 MMOL/L (8-16) 03/18/18 06:00 BUN 13 mg/dL (7-18) 03/18/18 06:00 Creatinine 1.0 mg/dL (0.55-1.3) 03/18/18 06:00 Creat Clearance w eGFR > 60 (>60) 03/18/18 06:00 Random Glucose 93 mg/dL (74-106) 03/18/18 06:00 Calcium 9.1 mg/dL (8.5-10.1) 03/18/18 06:00 Total Bilirubin 0.3 mg/dL (0.2-1) 03/18/18 06:00 AST 24 U/L (15-37) 03/18/18 06:00 ALT 30 U/L (13-61) 03/18/18 06:00 Alkaline Phosphatase 85 U/L (45-117) 03/18/18 06:00 Total Protein 7.3 g/dl (6.4-8.2) 03/18/18 06:00 Albumin 4.1 g/dl (3.4-5.0) 03/18/18 06:00 Triglycerides 76 mg/dL (0-150) 03/17/18 11:31 Cholesterol 161 mg/dL (50-200) 03/17/18 11:31 Total LDL Cholesterol 93 mg/dL (5-100) 03/17/18 11:31 HDL Cholesterol 54 mg/dL (40-60) 03/17/18 11:31 RPR Titer Nonreactive (NONREACTIVE) 03/18/18 06:00 lab noted Assessment: 03/21/18 12:26 mild withdrawal sx Plan: continue deotx
[2018-03-21] MEDS: THIAMINE HCL 100 MG TABLET (FP) PO SCH (22:44)
[2018-03-22] MEDS: MELATONIN 5 MG TABLETS PO PRN (00:52)
[2018-03-22] MEDS ORDERED: METHADONE HCL 5 MG TABLET (FOR DETOX USE ONLY) PO SCH (06:00)
[2018-03-22 06:58] VITALS: BP 110/61; PULSE 70; TEMP 97.9
--- NOTE | 2018-03-22 17:03 | DS ---
[facility] Detox Discharge Summary Admission Date: 03/17/18 Discharge Date: 03/22/18 - History Present History: Alcohol Dependence, Cocaine Dependence, Opioid Dependence Additional Comments: PATIENT DECLINES AFTERCARE REFERRAL AT THIS TIME AND ELECTS TO GO HOME. PATIENT ADVISED TO CONSIDER LOCAL 12-STEP / NA / AA OUTPATIENT SUPPORT GROUPS FOR AFTERCARE. PATIENT VERBALIZED UNDERSTANDING OF RECOMMENDATION. PATIENT WAS DISCHARGED FROM DETOX UNIT IN STABLE MEDICAL CONDITION. Pertinent Past History: History of Hepatitis C, History of Depression, HTN, Hypercholesterolemia, History of Schizoaffective Disorder, History of PPD Positive, Nicotine Dependence, [id number], History of Back Pain. - Physical Exam Results Vital Signs: Vital Signs Temperature 97.9 F 03/22/18 06:57 Pulse Rate 70 03/22/18 06:57 Respiratory Rate 18 03/22/18 06:57 Blood Pressure 110/61 03/22/18 06:57 O2 Sat by Pulse Oximetry (%) Pertinent Admission Physical Exam Findings: WITHDRAWAL SYMPTOMS. Laboratory Tests 03/17/18 03/18/18 03/18/18 11:31 06:00 06:00 WBC 5.7 RBC 5.00 Hgb 14.6 Hct 43.9 MCV 87.8 MCH 29.2 MCHC 33.2 RDW 13.5 Plt Count 317 D MPV 8.3 Sodium 140 Potassium 3.9 Chloride 102 Carbon Dioxide 28 Anion Gap 10 BUN 13 Creatinine 1.0 Creat Clearance w eGFR > 60 Random Glucose 93 Calcium 9.1 Total Bilirubin 0.3 AST 24 ALT 30 Alkaline Phosphatase 85 Total Protein 7.3 Albumin 4.1 Triglycerides 76 Cholesterol 161 Total LDL Cholesterol 93 HDL Cholesterol 54 RPR Titer 03/18/18 06:00 WBC RBC Hgb Hct MCV MCH MCHC RDW Plt Count MPV Sodium Potassium Chloride Carbon Dioxide Anion Gap BUN Creatinine Creat Clearance w eGFR Random Glucose Calcium Total Bilirubin AST ALT Alkaline Phosphatase Total Protein Albumin Triglycerides Cholesterol Total LDL Cholesterol HDL Cholesterol RPR Titer Nonreactive LABS NOTED. - Treatment Hospital Course: Detox Protocol Followed, Detoxed Safely, Responded well, Discharged Condition Good Patient has Accepted a Rehab Referral to: PT. DECLINES; ADVISED TO CONSIDER LOCAL 12-STEP/NA/AA OP SUPPROT GROUPS. - Medication Discharge Medications: Ambulatory Orders Mirtazapine [Remeron -] 30 mg PO HS #30 tablet 07/03/17 Risperidone [Risperdal -] 3 mg PO HS #30 tablet 07/03/17 Aspirin [ASA -] 81 mg PO DAILY 30 Days #30 tab 10/30/17 Amlodipine Besylate [Norvasc -] 10 mg PO DAILY 30 Days #30 tablet 03/21/18 Atorvastatin Ca [Lipitor] 40 mg PO HS #30 tab 03/21/18 - Diagnosis (1) Alcohol dependence with uncomplicated withdrawal Status: Acute (2) Opioid dependence with withdrawal Status: Acute (3) Hepatitis C Status: Chronic Qualifiers: Viral hepatitis chronicity: chronic Hepatic coma status: without hepatic coma Qualified Code(s): B18.2 - Chronic viral hepatitis C (4) Hard of hearing Status: Chronic Qualifiers: Hearing loss type: unspecified Laterality: unspecified laterality Qualified Code(s): H91.90 - Unspecified hearing loss, unspecified ear (5) Cocaine dependence Status: Chronic Qualifiers: Substance use status: uncomplicated Qualified Code(s): F14.20 - Cocaine dependence, uncomplicated (6) Hypercholesterolemia Status: Chronic (7) Hypertension Status: Chronic Qualifiers: Hypertension type: essential hypertension Qualified Code(s): I10 - Essential (primary) hypertension (8) Nicotine dependence Status: Chronic Qualifiers: Nicotine product type: cigarettes Substance use status: uncomplicated Qualified Code(s): F17.210 - Nicotine dependence, cigarettes, uncomplicated (9) Schizoaffective disorder Status: Chronic Qualifiers: Schizoaffective disorder type: unspecified Qualified Code(s): F25.9 - Schizoaffective disorder, unspecified (10) PPD positive Status: Chronic - AMA Did Patient Leave Against Medical Advice: No
== END 2018-03-22 09:16 | disposition home or self-care (01) | DRG 773 ==
LOC: YASAS 08:54 → Y6N 11:29
PROC: HZ2ZZZZ Detoxification Services for Substance Abuse Treatment (ICD-10-PCS; principal; 2018-03-17)
DX: F11.23 Opioid dependence with withdrawal (principal); F10.230 Alcohol dependence with withdrawal, uncomplicated; F14.20 Cocaine dependence, uncomplicated; F17.210 Nicotine dependence, cigarettes, uncomplicated; F25.9 Schizoaffective disorder, unspecified; I10 Essential (primary) hypertension; E78.00 Pure hypercholesterolemia, unspecified; B18.2 Chronic viral hepatitis C; H91.93 Unspecified hearing loss, bilateral; R76.11 Nonspecific reaction to tuberculin skin test without active tuberculosis; M54.5 Low back pain
CPT/HCPCS: 36415; 71046-TC-FY; 80053; 80061; 83721; 85027; 86593

== ENCOUNTER 2018-08-08 12:24 | Inpatient (IN) | payer OTHER | END 2018-08-11 11:55 | disposition home or self-care (01) | LOC: YASAS 12:24 → Y3N 22:24 ==

== ENCOUNTER 2019-11-22 09:41 | Inpatient (IN) | payer OTHER ==
--- NOTE | 2019-11-22 10:37 | BHS.RME ---
Substance Use & Tx History - Substance Use History Alcohol Substance amount: 1 pint vodka Frequency of use: Daily Substance route: Oral Date of Last Use: 11/22/19 Heroin Substance amount: 5-6 bags Substance route: Oral Date of Last Use: 11/21/19 Cocaine- Powder Substance amount: $20 Frequency of use: Daily Substance route: Inhalation (ex: sniffing or snorting) Date of Last Use: 11/21/19 Physical/Psych/Mental Status - Behavior General Behavior: Increased activity (restlessness, agitation) Eye Contact: Normal - Cooperativeness Cooperativeness: Cooperative - Thinking Thought Processes: Tight, Logical, Goal Directed - Physical Health Problems Is patient presently having any pain?: No Does patient presently have any injuries (include location): No Does patient currently have a fever: No Is patient : No CIWA Nausea/Vomitin Muscle Tremors: 3 Anxiety: 3 Agitation: 3 Paroxysmal Sweats: 4-Forehead w/Sweat Beads Orientation: 0-Oriented Tacttile Disturbances: 0-None Auditory Disturbances: 0-None Visual Disturbances: 0-None Headache: 0-None Present CIWA-Ar Total Score: 16
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
[2019-11-22 10:54] VITALS: BMI 25.8
[2019-11-22] MEDS ORDERED: ONDANSETRON *ODT* 4 MG TABLET SL PRN (11:04)
[2019-11-22] MEDS ORDERED: MAGNESIUM CITRATE 300 ML BOTTLE PO PRN (11:04)
[2019-11-22] MEDS ORDERED: MAGNESIUM HYDROX 2400MG/30ML ORAL SUSPENSION 30 ML CUP PO PRN (11:04)
[2019-11-22] MEDS ORDERED: METHOCARBAMOL 500 MG TABLET PO PRN (11:04)
[2019-11-22] MEDS ORDERED: MENTHOL/PHENOL 1 EACH UD MM PRN (11:04)
[2019-11-22] MEDS ORDERED: MAG HYDROX/AL HYDROX/SIMETH 30 ML UNIT-DOSE CUP PO PRN (11:04)
[2019-11-22] MEDS ORDERED: NICOTINE POLACRILEX 2 MG GUM BUC PRN (11:04)
[2019-11-22] MEDS ORDERED: BISMUTH SUBSALICYLATE 524 MG/30 ML UD PO PRN (11:04)
[2019-11-22] MEDS ORDERED: ACETAMINOPHEN 325 MG TABLET (FP) PO PRN ×2 (11:04)
[2019-11-22] MEDS ORDERED: LORazepam 1 MG TABLET PO PRN (11:04)
[2019-11-22] MEDS: NICOTINE 21 MG/24 HOURS TOPICAL PATCH TD SCH (12:21)
[2019-11-22] MEDS ORDERED: BUPRENORPHINE/NALOXONE 8 MG/2 MG FILM PACKET SL SCH (14:00)
[2019-11-22] MEDS: hydrOXYzine PAMOATE 25 MG CAPSULE (FP) PO SCH ×3 (14:51→22:34)
--- NOTE | 2019-11-22 14:59 | CONSULT ---
[facility] Psychiatric Consult - Data Date of interview: 11/22/19 Admission source: [facility] Identifying data: Readmission to [facility] at [address] [place] [address] for this 59 y/o male self-referred for detoxification treatment. ALYSSA issues :alcohol, cocaine, heroin, nicotine. Patient is , a father of one, domiciled, unemployed and supported on SSI benefits. Substance Abuse History: Discussed with the patient. ALYSSA profile as follows : Smoking history: Current every day smoker. Have you smoked in the past 12 months: Yes. Aproximately how many cigarettes per day: 20. Cigars Per Day: 0. Hx Chewing Tobacco Use: No. Initiated information on smoking cessation: Yes. 'Breaking Loose' booklet given: 11/22/19. - Substances abused. Alcohol. Substance route: Oral. Frequency: Daily. Amount used: 1 pt vodka. Age of first use: 14. Date of last use: 11/22/19. Heroin. Substance route: Inhalation. Frequency: Daily. Amount used: 5-6 bags. Age of first use: 14. Date of last use: 11/21/19. Cocaine. Substance route: Inhalation. Frequ ency: Daily. Amount used: $20. Age of first use: 15. Date of last use: 11/21/19 Medical History: Medical profile is remarkable for hypercholesterolemia, chronic lumbar pain, arthritis, hepatitis C, decreased hearing, systemic lupus erythematosus and hypertension. Noted allergy to chlordiazepoxide. Psychiatric History: Long standing history of psychiatric illness (multiple psychiatric hospitalizations ([facility] + [facility] + [facility] + [facility] + [facility] + [facility]). Patient has reportedly been diagnosed with Schizoaffective Disorder. He endorses his medications as trazodone + mirtazapine. Mr Mcpherson is currently seeing a psychiatrist, Dr Loi Zaidi, at [facility] ([phone]). Patient is known for chronic non-adherence to medications/aftercare. Denies history of suicide attempts. Physical/Sexual Abuse/Trauma History: Patient denies. Additional Comment: Urine drug screen results: FEN-Fentanyl, MOP-Opiates, MTD- Methadone. Noted. Mental Status Exam - Mental Status Exam Alert and Oriented to: Time, Place, Person Cognitive Function: Good Patient Appearance: Well Groomed Mood: Withdrawn Affect: Mood Congruent, Constricted Patient Behavior: Fatigued, Appropriate, Cooperative Speech Pattern: Clear, Appropriate Voice Loudness: Normal Thought Process: Goal Oriented Thought Disorder: Not Present Hallucinations: Denies Suicidal Ideation: Denies Homicidal Ideation: Denies Insight/Judgement: Poor Sleep: Poorly, Difficulty falling asleep Appetite: Good Gait/Station: Normal Psychiatric Findings - Problem List ([place] 1, 2,3) (1) Alcohol dependence with uncomplicated withdrawal Current Visit: Yes Status: Acute (2) Nicotine dependence Current Visit: Yes Status: Chronic Qualifiers: Nicotine product type: cigarettes Substance use status: in withdrawal Qualified Code(s): F17.213 - Nicotine dependence, cigarettes, with withdrawal Comment: . (3) Cocaine dependence Current Visit: Yes Status: Chronic Qualifiers: Substance use status: uncomplicated Qualified Code(s): F14.20 - Cocaine dependence, uncomplicated Comment: . (4) Schizoaffective disorder Current Visit: Yes Status: Chronic Qualifiers: Schizoaffective disorder type: unspecified Qualified Code(s): F25.9 - Schizoaffective disorder, unspecified Comment: By history. (5) Substance induced mood disorder Current Visit: Yes Status: Chronic (6) Insomnia Current Visit: Yes Status: Chronic Qualifiers: Insomnia type: unspecified Qualified Code(s): G47.00 - Insomnia, unspecified Comment: . (7) Non-compliance Current Visit: Yes Status: Chronic - Initial Treatment Plan Initial Treatment Plan: Psychoeducation. Sleep hygiene. Detoxification. Line Cook spoke to Dr Loi Zaidi from [facility] at [phone] : medications are verified (trazodone 100 mg po hs + remeron 15 mg po hs). Both resumed at patient's request. Side effects/benefits are discussed with patient, including risk of priapism. Consent granted to MD. Candelaria
[2019-11-22 16:05] LABS: ALBUMIN 4.2 g/dl (3.4-5.0); BILIRUBIN,TOTAL 0.4 mg/dL (0.2-1); BLOOD UREA NITROGEN 9.7 mg/dL (7-18); CALCIUM 9.8 mg/dL (8.5-10.1); CREATININE 0.9 mg/dL (0.55-1.3); POTASSIUM 4.2 mmol/L (3.5-5.1); TOT PROT 8.2 g/dl (6.4-8.2)
[2019-11-22 16:19] LABS: HEMATOCRIT 43.5 % (35.4-49); HEMOGLOBIN 14.8 GM/dL (11.7-16.9); MCH 29.7 pg (25.7-33.7); MCHC 34.1 g/dl (32.0-35.9); MEAN PLT VOLUME 7.6 fl (7.5-11.1); PLATELET COUNT 296 K/MM3 (134-434); RDW 13.3 % (11.9-15.9)
[2019-11-22] MEDS: LORazepam 2 MG TABLET PO SCH ×2 (17:44→22:34)
[2019-11-22] MEDS: THIAMINE HCL 100 MG TABLET (FP) PO SCH (22:34)
[2019-11-22] MEDS: MELATONIN 5 MG TABLETS PO SCH (22:34)
[2019-11-22] MEDS: traZODone HCL 100 MG TABLET (FP) PO SCH (22:34)
[2019-11-23] MEDS: hydrOXYzine PAMOATE 25 MG CAPSULE (FP) PO SCH ×5 (06:20→22:25)
[2019-11-23] MEDS: LORazepam 2 MG TABLET PO SCH ×4 (06:20→22:25)
[2019-11-23] MEDS: BUPRENORPHINE/NALOXONE 8 MG/2 MG FILM PACKET SL SCH ×3 (06:21→22:27)
[2019-11-23] MEDS: PRENATAL VITAMINS W/ FOLIC ACID TABLET (FP) PO SCH (10:22)
[2019-11-23] MEDS: NICOTINE 21 MG/24 HOURS TOPICAL PATCH TD SCH (10:22)
--- NOTE | 2019-11-23 11:25 | PN ---
S CIWA - CIWA Score Nausea/Vomitin-Mild Nausea/No Vomiting Muscle Tremors: 3 Anxiety: 3 Agitation: 1-Slight > Activity Paroxysmal Sweats: 2 Orientation: 0-Oriented Tacttile Disturbances: 1-Very Mild Itch/Numbness Auditory Disturbances: 0-None Visual Disturbances: 1-Very Mild Sensitivity Headache: 1-Very Mild CIWA-Ar Total Score: 13 BHS Progress Note (SOAP) Subjective: 59 years old male was admitted on 11/22/19 for alcohol withdrawal sx management treating with ativan detox regiment receiving suboxone 8-2mg sl tid daily feels tired but better than "yesterday" mr scott prefers returning to suboxone program for opiate abuse treatment Objective: 11/23/19 11:25 Vital Signs - 24 hr 11/22/19 11/22/19 11/22/19 12:41 16:42 21:12 Temperature 97.1 F L 97.3 F L 97.1 F L Pulse Rate 65 71 70 Respiratory 18 20 18 Rate Blood Pressure 123/75 132/79 116/74 O2 Sat by Pulse 99 99 Oximetry (%) 11/23/19 11/23/19 06:33 08:40 Temperature 97.8 F 97.1 F L Pulse Rate 84 66 Respiratory 18 16 Rate Blood Pressure 138/88 122/76 O2 Sat by Pulse 96 Oximetry (%) Laboratory Tests 11/22/19 11/22/19 11/22/19 11:25 11:25 11:25 WBC 6.0 RBC 5.00 Hgb 14.8 Hct 43.5 MCV 87.0 MCH 29.7 MCHC 34.1 RDW 13.3 Plt Count 296 MPV 7.6 Sodium 140 Potassium 4.2 Chloride 98 Carbon Dioxide 33 H Anion Gap 9 BUN 9.7 Creatinine 0.9 Est GFR (CKD-EPI)AfAm 107.22 Est GFR (CKD-EPI)NonAf 92.51 Random Glucose 90 Calcium 9.8 Total Bilirubin 0.4 AST 27 ALT 35 Alkaline Phosphatase 81 Total Protein 8.2 Albumin 4.2 Syphilis Serology Non-reactive COVID-19 (MARTHA) HIV Ag/Ab Combo Qual 11/22/19 11/22/19 11:25 11:25 WBC RBC Hgb Hct MCV MCH MCHC RDW Plt Count MPV Sodium Potassium Chloride Carbon Dioxide Anion Gap BUN Creatinine Est GFR (CKD-EPI)AfAm Est GFR (CKD-EPI)NonAf Random Glucose Calcium Total Bilirubin AST ALT Alkaline Phosphatase Total Protein Albumin Syphilis Serology COVID-19 (MARTHA) Not detected HIV Ag/Ab Combo Qual Negative lab noted Assessment: 11/23/19 11:25 alcohol withdrawal Plan: ativan regiment
[2019-11-23] MEDS: traZODone HCL 100 MG TABLET (FP) PO SCH (22:25)
[2019-11-23] MEDS: MELATONIN 5 MG TABLETS PO SCH (22:25)
[2019-11-23] MEDS: THIAMINE HCL 100 MG TABLET (FP) PO SCH (22:25)
[2019-11-24] MEDS: hydrOXYzine PAMOATE 25 MG CAPSULE (FP) PO SCH ×5 (06:10→22:45)
[2019-11-24] MEDS: LORazepam 1 MG TABLET PO SCH ×4 (06:10→22:45)
[2019-11-24] MEDS: BUPRENORPHINE/NALOXONE 8 MG/2 MG FILM PACKET SL SCH ×3 (06:10→22:48)
[2019-11-24] MEDS: PRENATAL VITAMINS W/ FOLIC ACID TABLET (FP) PO SCH (10:25)
[2019-11-24] MEDS: NICOTINE 21 MG/24 HOURS TOPICAL PATCH TD SCH (10:25)
[2019-11-24] MEDS: IBUPROFEN 400 MG TABLET (FP) PO PRN (14:35)
--- NOTE | 2019-11-24 15:08 | PN ---
S CIWA - CIWA Score Nausea/Vomitin Muscle Tremors: 2 Anxiety: 2 Agitation: 2 Paroxysmal Sweats: No Perspiration Orientation: 0-Oriented Tacttile Disturbances: 1-Very Mild Itch/Numbness Auditory Disturbances: 0-None Visual Disturbances: 0-None Headache: 2-Mild CIWA-Ar Total Score: 11 S Progress Note (SOAP) Subjective: alert,irritable,anxious,interrupted sleep,tremor,aching pain Objective: 11/24/19 15:06 Vital Signs Temperature 97.7 F 11/24/19 12:28 Pulse Rate 98 H 11/24/19 12:28 Respiratory Rate 18 11/24/19 12:28 Blood Pressure 106/66 11/24/19 12:28 O2 Sat by Pulse Oximetry (%) 98 11/24/19 12:28 Laboratory Last Values WBC 6.0 K/mm3 (4.0-10.0) 11/22/19 11:25 RBC 5.00 M/mm3 (4.00-5.60) 11/22/19 11:25 Hgb 14.8 GM/dL (11.7-16.9) 11/22/19 11:25 Hct 43.5 % (35.4-49) 11/22/19 11:25 MCV 87.0 fl (80-96) 11/22/19 11:25 MCH 29.7 pg (25.7-33.7) 11/22/19 11:25 MCHC 34.1 g/dl (32.0-35.9) 11/22/19 11:25 RDW 13.3 % (11.9-15.9) 11/22/19 11:25 Plt Count 296 K/MM3 (134-434) 11/22/19 11:25 MPV 7.6 fl (7.5-11.1) 11/22/19 11:25 Sodium 140 mmol/L (136-145) 11/22/19 11:25 Potassium 4.2 mmol/L (3.5-5.1) 11/22/19 11:25 Chloride 98 mmol/L (98-107) 11/22/19 11:25 Carbon Dioxide 33 mmol/L (21-32) H 11/22/19 11:25 Anion Gap 9 MMOL/L (8-16) 11/22/19 11:25 BUN 9.7 mg/dL (7-18) 11/22/19 11:25 Creatinine 0.9 mg/dL (0.55-1.3) 11/22/19 11:25 Est GFR (CKD-EPI)AfAm 107.22 11/22/19 11:25 Est GFR (CKD-EPI)NonAf 92.51 11/22/19 11:25 Random Glucose 90 mg/dL (74-106) 11/22/19 11:25 Calcium 9.8 mg/dL (8.5-10.1) 11/22/19 11:25 Total Bilirubin 0.4 mg/dL (0.2-1) 11/22/19 11:25 AST 27 U/L (15-37) 11/22/19 11:25 ALT 35 U/L (13-61) 11/22/19 11:25 Alkaline Phosphatase 81 U/L (45-117) 11/22/19 11:25 Total Protein 8.2 g/dl (6.4-8.2) 11/22/19 11:25 Albumin 4.2 g/dl (3.4-5.0) 11/22/19 11:25 Syphilis Serology Non-reactive (NONREACTIVE) 11/22/19 11:25 COVID-19 (MARTHA) Not detected (Not Detected) 11/22/19 11:25 HIV Ag/Ab Combo Qual Negative (NEGATIVE) 11/22/19 11:25 11/24/19 15:07 chest x ray on 11/23/2019 no acute chest pathology Assessment: 11/24/19 15:08 withdrawal symptom Plan: continue detox ativan regimen
[2019-11-24] MEDS: traZODone HCL 100 MG TABLET (FP) PO SCH (22:45)
[2019-11-24] MEDS: THIAMINE HCL 100 MG TABLET (FP) PO SCH (22:45)
[2019-11-24] MEDS: MELATONIN 5 MG TABLETS PO SCH (22:45)
[2019-11-25] MEDS ORDERED: LORazepam 0.5 MG TABLET PO PRN
[2019-11-25] MEDS: BUPRENORPHINE/NALOXONE 8 MG/2 MG FILM PACKET SL SCH ×3 (05:13→22:10)
[2019-11-25] MEDS: hydrOXYzine PAMOATE 25 MG CAPSULE (FP) PO SCH ×5 (05:14→22:10)
[2019-11-25] MEDS: LORazepam 0.5 MG TABLET PO SCH ×4 (05:14→22:11)
--- NOTE | 2019-11-25 10:08 | PN ---
S CIWA - CIWA Score Nausea/Vomitin-No Nausea/No Vomiting Muscle Tremors: None Anxiety: 0-No Anxiety, at Ease Agitation: 0-Normal Activity Paroxysmal Sweats: No Perspiration Orientation: 1-Uncertain about Date Tacttile Disturbances: 0-None Auditory Disturbances: 0-None Visual Disturbances: 0-None Headache: 2-Mild CIWA-Ar Total Score: 3 BHS Progress Note (SOAP) Subjective: Mild headache, holocephalic, grades 4/10 Objective: 11/25/19 10:06 PE GnL: WDWN, in no distress Ms: nl mentation Motor; moves limbs well Coord; nl, no tremor Laboratory Tests 11/22/19 11/22/19 11/22/19 11:25 11:25 11:25 WBC 6.0 RBC 5.00 Hgb 14.8 Hct 43.5 MCV 87.0 MCH 29.7 MCHC 34.1 RDW 13.3 Plt Count 296 MPV 7.6 Sodium 140 Potassium 4.2 Chloride 98 Carbon Dioxide 33 H Anion Gap 9 BUN 9.7 Creatinine 0.9 Est GFR (CKD-EPI)AfAm 107.22 Est GFR (CKD-EPI)NonAf 92.51 Random Glucose 90 Calcium 9.8 Total Bilirubin 0.4 AST 27 ALT 35 Alkaline Phosphatase 81 Total Protein 8.2 Albumin 4.2 Syphilis Serology Non-reactive COVID-19 (MARTHA) HIV Ag/Ab Combo Qual 11/22/19 11/22/19 11:25 11:25 WBC RBC Hgb Hct MCV MCH MCHC RDW Plt Count MPV Sodium Potassium Chloride Carbon Dioxide Anion Gap BUN Creatinine Est GFR (CKD-EPI)AfAm Est GFR (CKD-EPI)NonAf Random Glucose Calcium Total Bilirubin AST ALT Alkaline Phosphatase Total Protein Albumin Syphilis Serology COVID-19 (MARTHA) Not detected HIV Ag/Ab Combo Qual Negative Home Medication List Medication Instructions Recorded Confirmed Type Buprenorphine/Naloxone [Suboxone 1 each SL TID 11/22/19 11/22/19 History 8Mg/2Mg Sl Film -] Active Medications Generic Name Dose Route Start Last Admin Trade Name Freq PRN Reason Stop Dose Admin Acetaminophen 650 mg 11/22/19 11:04 Tylenol - PO Q6H PRN PAIN LEVEL 4 - 6 Acetaminophen 650 mg 11/22/19 11:04 Tylenol - PO Q6H PRN FEVER Al Hydroxide/Mg Hydroxide 30 ml 11/22/19 11:04 Mylanta Oral Suspension - PO Q6H PRN DYSPEPSIA Bismuth Subsalicylate 524 mg 11/22/19 11:04 Pepto-Bismol - PO Q1H PRN DIARRHEA Buprenorphine/Naloxone 1 each 11/23/19 06:00 11/25/19 05:13 Suboxone 8 Mg/2 Mg Film Packet SL 1 each TID LEE Administration Eucalyptus/Menthol/Phenol/Sorbitol 1 each 11/22/19 11:04 Cepastat Lozenge - MM 11/28/19 11:04 Q4H PRN SORE THROAT Hydroxyzine Pamoate 25 mg 11/22/19 14:00 11/25/19 05:14 Vistaril - PO 11/28/19 11:04 25 mg Q4HWA LEE Administration Ibuprofen 400 mg 11/22/19 11:04 11/24/19 14:35 Motrin - PO 400 mg Q6H PRN Administration PAIN LEVEL 1 - 3 Lorazepam 0.5 mg 11/25/19 05:00 11/25/19 05:14 Ativan - PO 11/25/19 23:01 0.5 mg Q6H LEE Administration Lorazepam 0.5 mg 11/25/19 00:00 Ativan - PO 11/26/19 00:00 Q4H PRN Symptoms of Withdrawal Lorazepam 0.5 mg 11/26/19 05:00 Ativan - PO 11/26/19 05:01 ONCE ONE Magnesium Citrate 300 ml 11/22/19 11:04 Citroma - PO Q48H PRN CONSTIPATION Magnesium Hydroxide 30 ml 11/22/19 11:04 Milk Of Magnesia - PO PRN PRN CONSTIPATION Melatonin 5 mg 11/22/19 22:00 11/24/19 22:45 Melatonin PO 5 mg HS LEE Administration Methocarbamol 500 mg 11/22/19 11:04 Robaxin - PO 11/28/19 11:04 Q6H PRN MUSCLE SPASMS Nicotine 21 mg 11/22/19 11:45 11/24/19 10:25 Nicoderm Patch - TD 21 mg DAILY LEE Administration Nicotine Polacrilex 2 mg 11/22/19 11:04 Nicorette Gum - BUC Q2H PRN NICOTINE REPLACEMENT RX Ondansetron HCl 4 mg 11/22/19 11:04 Zofran Odt - SL Q8H PRN Nausea/Vomiting Multivit/Folic Acid/Iron 1 tab 11/23/19 10:00 11/24/19 10:25 Vitamins (Sjr) - PO 1 tab DAILY LEE Administration Thiamine HCl 100 mg 11/22/19 22:00 11/24/19 22:45 Vitamin B1 - PO 100 mg HS LEE Administration Trazodone HCl 100 mg 11/22/19 22:00 11/24/19 22:45 Desyrel - PO 100 mg HS LEE Administration Vital Signs Temperature 97.5 F L 11/25/19 09:05 Pulse Rate 77 11/25/19 09:05 Respiratory Rate 18 11/25/19 09:05 Blood Pressure 108/67 11/25/19 09:05 O2 Sat by Pulse Oximetry (%) 97 11/25/19 05:11 Assessment: 11/25/19 10:07 1. Alcohol withdrawal uncomplicted 2. Opioid use on maintenance therapy 3. Seen by Psychiatry: substnace induced mood disorder, insomnia 11/25/19 10:08 Plan: 1. Ativan protocol, projected completion 11/25 2. Burpenorphine, continue 3. Per Psychiatry: Psychoeducation. Sleep hygiene. Detoxification. [employer] Service Manager spoke to Dr Loi Zaidi from [facility] at [phone] : medications are verified (trazodone 100 mg po hs + remeron 15 mg po hs). Both resumed at patient's request. Side effects/benefits are discussed with patient, including risk of priapism. Consent granted to MD. Nicholas.
[2019-11-25] MEDS: PRENATAL VITAMINS W/ FOLIC ACID TABLET (FP) PO SCH (10:23)
[2019-11-25] MEDS: NICOTINE 21 MG/24 HOURS TOPICAL PATCH TD SCH (10:24)
[2019-11-25] MEDS: THIAMINE HCL 100 MG TABLET (FP) PO SCH (22:10)
[2019-11-25] MEDS: traZODone HCL 100 MG TABLET (FP) PO SCH (22:11)
[2019-11-25] MEDS: MELATONIN 5 MG TABLETS PO SCH (22:11)
[2019-11-26] MEDS: IBUPROFEN 400 MG TABLET (FP) PO PRN (02:08)
[2019-11-26] MEDS ORDERED: LORazepam 0.5 MG TABLET PO ONE (05:00)
[2019-11-26] MEDS: BUPRENORPHINE/NALOXONE 8 MG/2 MG FILM PACKET SL SCH ×2 (06:56→14:12)
[2019-11-26] MEDS: hydrOXYzine PAMOATE 25 MG CAPSULE (FP) PO SCH ×3 (06:56→14:12)
[2019-11-26 09:26] VITALS: BP 116/77; PULSE 73; TEMP 97.2
[2019-11-26] MEDS: PRENATAL VITAMINS W/ FOLIC ACID TABLET (FP) PO SCH (09:50)
[2019-11-26] MEDS: NICOTINE 21 MG/24 HOURS TOPICAL PATCH TD SCH (09:50)
--- NOTE | 2019-11-26 12:30 | DS ---
[facility] Detox Discharge Summary Admission Date: 11/22/19 Discharge Date: 11/26/19 - History Present History: Alcohol Dependence, Cocaine Dependence, Opioid Dependence Additional Comments: Pt is medically cleared and is discharged today. Pt completed the detox protocol. Pt is encouraged to follow-up with an outpatient CD program and also to follow-up with his pmd which he verbalized understanding. Pt is on suboxone and states that he has enough refills until his next appointment. Pt is AOX3, in no acute respiratory distress, Full ROM, and ambulatory. Pertinent Past History: h/o HTN, alcohol, heroin, and cocaine use disorder. - Physical Exam Results Vital Signs: Vital Signs Temperature 97.2 F L 11/26/19 08:32 Pulse Rate 73 11/26/19 08:32 Respiratory Rate 18 11/26/19 08:32 Blood Pressure 116/77 11/26/19 08:32 O2 Sat by Pulse Oximetry (%) 96 11/26/19 08:29 Vital Signs 11/26/19 11/26/19 08:29 08:32 Temperature 97.3 F L 97.2 F L Pulse Rate 70 73 Respiratory 20 18 Rate Blood Pressure 123/81 116/77 O2 Sat by Pulse 96 Oximetry (%) Laboratory Last Values WBC 6.0 K/mm3 (4.0-10.0) 11/22/19 11:25 RBC 5.00 M/mm3 (4.00-5.60) 11/22/19 11:25 Hgb 14.8 GM/dL (11.7-16.9) 11/22/19 11:25 Hct 43.5 % (35.4-49) 11/22/19 11:25 MCV 87.0 fl (80-96) 11/22/19 11:25 MCH 29.7 pg (25.7-33.7) 11/22/19 11:25 MCHC 34.1 g/dl (32.0-35.9) 11/22/19 11:25 RDW 13.3 % (11.9-15.9) 11/22/19 11:25 Plt Count 296 K/MM3 (134-434) 11/22/19 11:25 MPV 7.6 fl (7.5-11.1) 11/22/19 11:25 Sodium 140 mmol/L (136-145) 11/22/19 11:25 Potassium 4.2 mmol/L (3.5-5.1) 11/22/19 11:25 Chloride 98 mmol/L (98-107) 11/22/19 11:25 Carbon Dioxide 33 mmol/L (21-32) H 11/22/19 11:25 Anion Gap 9 MMOL/L (8-16) 11/22/19 11:25 BUN 9.7 mg/dL (7-18) 11/22/19 11:25 Creatinine 0.9 mg/dL (0.55-1.3) 11/22/19 11:25 Est GFR (CKD-EPI)AfAm 107.22 11/22/19 11:25 Est GFR (CKD-EPI)NonAf 92.51 11/22/19 11:25 Random Glucose 90 mg/dL (74-106) 11/22/19 11:25 Calcium 9.8 mg/dL (8.5-10.1) 11/22/19 11:25 Total Bilirubin 0.4 mg/dL (0.2-1) 11/22/19 11:25 AST 27 U/L (15-37) 11/22/19 11:25 ALT 35 U/L (13-61) 11/22/19 11:25 Alkaline Phosphatase 81 U/L (45-117) 11/22/19 11:25 Total Protein 8.2 g/dl (6.4-8.2) 11/22/19 11:25 Albumin 4.2 g/dl (3.4-5.0) 11/22/19 11:25 Syphilis Serology Non-reactive (NONREACTIVE) 11/22/19 11:25 COVID-19 (MARTHA) Not detected (Not Detected) 11/22/19 11:25 HIV Ag/Ab Combo Qual Negative (NEGATIVE) 11/22/19 11:25 Labs noted. Pertinent Admission Physical Exam Findings: withdrawal symptoms. - Treatment Hospital Course: Detox Protocol Followed, Detoxed Safely, Responded well, Discharged Condition Good - Medication Discharge Medications: Ambulatory Orders Buprenorphine/Naloxone [Suboxone 8Mg/2Mg Sl Film -] 1 each SL TID 11/22/19 - Diagnosis (1) Alcohol dependence with uncomplicated withdrawal Current Visit: Yes Status: Acute (2) Cocaine dependence Current Visit: Yes Status: Chronic Qualifiers: Substance use status: uncomplicated Qualified Code(s): F14.20 - Cocaine dependence, uncomplicated (3) Nicotine dependence Current Visit: Yes Status: Chronic Qualifiers: Nicotine product type: cigarettes Substance use status: in withdrawal Qualified Code(s): F17.213 - Nicotine dependence, cigarettes, with withdrawal (4) Encounter for monitoring Suboxone maintenance therapy Current Visit: No Status: Chronic (5) Hypertension Current Visit: No Status: Chronic Qualifiers: Hypertension type: essential hypertension Qualified Code(s): I10 - Essential (primary) hypertension - AMA Did Patient Leave Against Medical Advice: No
== END 2019-11-26 14:25 | disposition home or self-care (01) | DRG 773 ==
LOC: YASAS 09:41 → Y3N 10:44
PROVIDERS: ADMIT Allergy & Immunology; ATTEND Allergy & Immunology
PROC: HZ2ZZZZ Detoxification Services for Substance Abuse Treatment (ICD-10-PCS; principal; 2019-11-22)
DX: F10.230 Alcohol dependence with withdrawal, uncomplicated (principal); F11.20 Opioid dependence, uncomplicated; F14.20 Cocaine dependence, uncomplicated; F17.213 Nicotine dependence, cigarettes, with withdrawal; F25.9 Schizoaffective disorder, unspecified; F19.24 Other psychoactive substance dependence with psychoactive substance-induced mood disorder; F32.9 Major depressive disorder, single episode, unspecified; E78.00 Pure hypercholesterolemia, unspecified; I10 Essential (primary) hypertension; M32.9 Systemic lupus erythematosus, unspecified; M54.5 Low back pain; M19.90 Unspecified osteoarthritis, unspecified site; B18.2 Chronic viral hepatitis C; Z51.81 Encounter for therapeutic drug level monitoring; Z79.899 Other long term (current) drug therapy; Z91.19 Patient's noncompliance with other medical treatment and regimen; Z88.8 Allergy status to other drugs, medicaments and biological substances
CPT/HCPCS: 36415; 71046-TC-FY; 80053; 85027; 86780; 87389; U0003

== ENCOUNTER 2020-04-01 10:32 | Inpatient (IN) | payer OTHER ==
[2020-04-01 13:22] VITALS: BMI 20.5
[2020-04-01] MEDS ORDERED: MAGNESIUM HYDROX 2400MG/30ML ORAL SUSPENSION 30 ML CUP PO PRN (17:18)
[2020-04-01] MEDS ORDERED: ONDANSETRON *ODT* 4 MG TABLET SL PRN (17:18)
[2020-04-01] MEDS ORDERED: ACETAMINOPHEN 325 MG TABLET (FP) PO PRN ×2 (17:18)
[2020-04-01] MEDS ORDERED: IBUPROFEN 400 MG TABLET (FP) PO PRN (17:18)
[2020-04-01] MEDS ORDERED: MENTHOL/PHENOL 1 EACH UD MM PRN (17:18)
[2020-04-01] MEDS ORDERED: diazePAM 5 MG TABLET PO PRN (17:18)
[2020-04-01] MEDS ORDERED: MAGNESIUM CITRATE 300 ML BOTTLE PO PRN (17:18)
[2020-04-01] MEDS ORDERED: NICOTINE POLACRILEX 2 MG GUM BUC PRN (17:18)
[2020-04-01] MEDS ORDERED: METHOCARBAMOL 500 MG TABLET PO PRN (17:18)
[2020-04-01] MEDS ORDERED: cloNIDine HCL 0.1 MG TABLET PO PRN (17:18)
[2020-04-01] MEDS ORDERED: BISMUTH SUBSALICYLATE 524 MG/30 ML UD PO PRN (17:18)
[2020-04-01] MEDS ORDERED: METHADONE HCL 10 MG TABLET (FOR DETOX USE ONLY) PO ONE (18:00)
[2020-04-01] MEDS: hydrOXYzine PAMOATE 25 MG CAPSULE (FP) PO SCH ×2 (18:18→22:20)
[2020-04-01] MEDS: diazePAM 5 MG TABLET PO SCH ×2 (18:18→22:20)
[2020-04-01] MEDS: MELATONIN 5 MG TABLETS PO SCH (22:20)
[2020-04-01] MEDS: THIAMINE HCL 100 MG TABLET (FP) PO SCH (22:20)
[2020-04-02] MEDS: diazePAM 5 MG TABLET PO SCH ×4 (05:52→22:42)
[2020-04-02] MEDS: hydrOXYzine PAMOATE 25 MG CAPSULE (FP) PO SCH ×5 (05:52→22:42)
[2020-04-02] MEDS ORDERED: METHADONE HCL 5 MG TABLET (FOR DETOX USE ONLY) ONE (08:58)
[2020-04-02] MEDS ORDERED: METHADONE HCL 10 MG TABLET (FOR DETOX USE ONLY) ONE (08:58)
[2020-04-02] MEDS ORDERED: METHADONE (DETOX) 20 MG, METHADONE (DETOX) 5 MG PO ONE (10:00)
[2020-04-02] MEDS: PRENATAL VITAMINS W/ FOLIC ACID TABLET (FP) PO SCH (10:21)
[2020-04-02] MEDS: NICOTINE 21 MG/24 HOURS TOPICAL PATCH TD SCH (10:24)
[2020-04-02 12:09] LABS: URINE APPEARANCE CLEAR; URINE BILIRUBIN NEGATIVE (NEGATIVE); URINE COLOR YELLOW; URINE GLUCOSE (UA) NEGATIVE (NEGATIVE); URINE KETONE NEGATIVE (NEGATIVE); URINE LEUK ESTERASE NEGATIVE (NEGATIVE); URINE NITRITE NEGATIVE (NEGATIVE); URINE PROTEIN NEGATIVE (NEGATIVE); URINE UROBILINOGEN 0.2 mg/dL (0.2-1.0)
[2020-04-02 12:14] LABS: CALCIUM 8.7 mg/dL (8.5-10.1)
[2020-04-02 12:15] LABS: ALBUMIN 3.6 g/dl (3.4-5.0); BLOOD UREA NITROGEN 24.5 mg/dL (7-18)
[2020-04-02 12:19] LABS: BILIRUBIN,TOTAL 0.3 mg/dL (0.2-1); CREATININE 1.1 mg/dL (0.55-1.3); HEMATOCRIT 37.9 % (35.4-49); MCH 30.1 pg (25.7-33.7); MCHC 34.3 g/dl (32.0-35.9); MEAN CELL VOLUME 87.7 fl (80-96); MEAN PLT VOLUME 7.8 fl (7.5-11.1); PLATELET COUNT 240 K/MM3 (134-434); RBC 4.32 M/mm3 (4.00-5.60); RDW 13.4 % (11.9-15.9); WHITE BLOOD COUNT 5.8 K/mm3 (4.0-10.0)
[2020-04-02 12:20] LABS: TOT PROT 6.3 g/dl (6.4-8.2)
[2020-04-02] MEDS: FLUOCINONIDE 0.05% CREAM (60 GM TUBE) TP SCH ×2 (14:12→22:42)
[2020-04-02] MEDS: MIRTAZAPINE 15 MG TABLET (FP) PO SCH (22:42)
[2020-04-02] MEDS: THIAMINE HCL 100 MG TABLET (FP) PO SCH (22:42)
[2020-04-02] MEDS: MELATONIN 5 MG TABLETS PO SCH (22:42)
[2020-04-03] MEDS: MAG HYDROX/AL HYDROX/SIMETH 30 ML UNIT-DOSE CUP PO PRN ×2 (05:58→22:31)
[2020-04-03] MEDS: diazePAM 5 MG TABLET PO SCH ×3 (05:58→22:30)
[2020-04-03] MEDS: hydrOXYzine PAMOATE 25 MG CAPSULE (FP) PO SCH ×5 (05:59→22:30)
[2020-04-03] MEDS ORDERED: METHADONE HCL 10 MG TABLET (FOR DETOX USE ONLY) PO ONE (10:00)
[2020-04-03] MEDS: PRENATAL VITAMINS W/ FOLIC ACID TABLET (FP) PO SCH (10:20)
[2020-04-03] MEDS: FLUOCINONIDE 0.05% CREAM (60 GM TUBE) TP SCH ×2 (10:20→22:32)
[2020-04-03] MEDS: NICOTINE 21 MG/24 HOURS TOPICAL PATCH TD SCH (10:21)
[2020-04-03] MEDS: MELATONIN 5 MG TABLETS PO SCH (22:30)
[2020-04-03] MEDS: MIRTAZAPINE 15 MG TABLET (FP) PO SCH (22:30)
[2020-04-03] MEDS: THIAMINE HCL 100 MG TABLET (FP) PO SCH (22:30)
[2020-04-04] MEDS: diazePAM 5 MG TABLET PO SCH ×2 (05:31→17:50)
[2020-04-04] MEDS: hydrOXYzine PAMOATE 25 MG CAPSULE (FP) PO SCH ×5 (05:31→22:32)
[2020-04-04] MEDS ORDERED: METHADONE HCL 10 MG TABLET (FOR DETOX USE ONLY) ONE (09:05)
[2020-04-04] MEDS ORDERED: METHADONE HCL 5 MG TABLET (FOR DETOX USE ONLY) ONE (09:05)
[2020-04-04] MEDS: NICOTINE 21 MG/24 HOURS TOPICAL PATCH TD SCH (09:49)
[2020-04-04] MEDS: PRENATAL VITAMINS W/ FOLIC ACID TABLET (FP) PO SCH (09:49)
[2020-04-04] MEDS: FLUOCINONIDE 0.05% CREAM (60 GM TUBE) TP SCH ×2 (09:50→22:32)
[2020-04-04] MEDS ORDERED: METHADONE (DETOX) 10 MG, METHADONE (DETOX) 5 MG PO ONE (10:00)
[2020-04-04] MEDS: MIRTAZAPINE 15 MG TABLET (FP) PO SCH (22:32)
[2020-04-04] MEDS: THIAMINE HCL 100 MG TABLET (FP) PO SCH (22:32)
[2020-04-04] MEDS: MELATONIN 5 MG TABLETS PO SCH (22:32)
[2020-04-05] MEDS: hydrOXYzine PAMOATE 25 MG CAPSULE (FP) PO SCH ×5 (05:51→22:13)
[2020-04-05] MEDS ORDERED: diazePAM 5 MG TABLET PO ONE (06:00)
[2020-04-05] MEDS: PRENATAL VITAMINS W/ FOLIC ACID TABLET (FP) PO SCH (09:44)
[2020-04-05] MEDS: FLUOCINONIDE 0.05% CREAM (60 GM TUBE) TP SCH ×2 (09:45→22:13)
[2020-04-05] MEDS: NICOTINE 21 MG/24 HOURS TOPICAL PATCH TD SCH (09:45)
[2020-04-05] MEDS ORDERED: METHADONE HCL 10 MG TABLET (FOR DETOX USE ONLY) PO ONE (10:00)
[2020-04-05] MEDS: THIAMINE HCL 100 MG TABLET (FP) PO SCH (22:13)
[2020-04-05] MEDS: MELATONIN 5 MG TABLETS PO SCH (22:13)
[2020-04-05] MEDS: MIRTAZAPINE 15 MG TABLET (FP) PO SCH (22:13)
[2020-04-06] MEDS: hydrOXYzine PAMOATE 25 MG CAPSULE (FP) PO SCH (05:39)
[2020-04-06] MEDS ORDERED: METHADONE HCL 5 MG TABLET (FOR DETOX USE ONLY) PO ONE (06:00)
[2020-04-06 07:10] VITALS: BP 108/73; PULSE 71; TEMP 97.3
== END 2020-04-06 09:17 | disposition home or self-care (01) | DRG 773 ==
LOC: YASAS 10:32 → Y3N 17:24
PROVIDERS: ADMIT Allergy & Immunology; ATTEND Allergy & Immunology
PROC: HZ2ZZZZ Detoxification Services for Substance Abuse Treatment (ICD-10-PCS; principal; 2020-04-01)
DX: F11.23 Opioid dependence with withdrawal (principal); F10.230 Alcohol dependence with withdrawal, uncomplicated; F14.20 Cocaine dependence, uncomplicated; F17.210 Nicotine dependence, cigarettes, uncomplicated; F19.24 Other psychoactive substance dependence with psychoactive substance-induced mood disorder; F25.9 Schizoaffective disorder, unspecified; M32.9 Systemic lupus erythematosus, unspecified; E78.00 Pure hypercholesterolemia, unspecified; I10 Essential (primary) hypertension; G47.00 Insomnia, unspecified; B18.2 Chronic viral hepatitis C; R21 Rash and other nonspecific skin eruption; M54.5 Low back pain; G89.29 Other chronic pain; R76.11 Nonspecific reaction to tuberculin skin test without active tuberculosis; Z88.8 Allergy status to other drugs, medicaments and biological substances; Z91.19 Patient's noncompliance with other medical treatment and regimen
CPT/HCPCS: 36415; 80053; 81003; 85027; 86780; C9803; U0003

== ENCOUNTER 2020-07-02 09:40 | Inpatient (IN) | payer OTHER ==
[2020-07-02 10:27] VITALS: BMI 29.0
[2020-07-02] MEDS ORDERED: MENTHOL/PHENOL 1 EACH UD MM PRN (11:09)
[2020-07-02] MEDS ORDERED: NICOTINE POLACRILEX 2 MG GUM BUC PRN (11:09)
[2020-07-02] MEDS ORDERED: METHADONE HCL 10 MG TABLET (FOR DETOX USE ONLY) PO ONE (11:09)
[2020-07-02] MEDS ORDERED: MAGNESIUM CITRATE 300 ML BOTTLE PO PRN (11:09)
[2020-07-02] MEDS ORDERED: LORazepam 1 MG TABLET PO PRN (11:09)
[2020-07-02] MEDS ORDERED: MAGNESIUM HYDROX 2400MG/30ML ORAL SUSPENSION 30 ML CUP PO PRN (11:09)
[2020-07-02] MEDS ORDERED: ACETAMINOPHEN 325 MG TABLET (FP) PO PRN ×2 (11:09)
[2020-07-02] MEDS ORDERED: IBUPROFEN 400 MG TABLET (FP) PO PRN (11:09)
[2020-07-02] MEDS ORDERED: cloNIDine HCL 0.1 MG TABLET PO PRN (11:09)
[2020-07-02] MEDS ORDERED: MAG HYDROX/AL HYDROX/SIMETH 30 ML UNIT-DOSE CUP PO PRN (11:09)
[2020-07-02] MEDS ORDERED: BISMUTH SUBSALICYLATE 262 MG/15 ML BTL PO PRN (11:09)
[2020-07-02] MEDS ORDERED: ONDANSETRON *ODT* 4 MG TABLET SL PRN (11:09)
[2020-07-02] MEDS ORDERED: METHOCARBAMOL 500 MG TABLET PO PRN (11:09)
[2020-07-02] MEDS: LORazepam 2 MG TABLET PO SCH ×3 (11:43→22:41)
[2020-07-02] MEDS: PRENATAL VITAMINS W/ FOLIC ACID TABLET (FP) PO SCH (11:45)
[2020-07-02] MEDS: NICOTINE 21 MG/24 HOURS TOPICAL PATCH TD SCH (11:45)
[2020-07-02] MEDS: hydrOXYzine PAMOATE 25 MG CAPSULE (FP) PO SCH ×3 (14:50→22:42)
[2020-07-02 15:41] LABS: HEMATOCRIT 42.2 % (35.4-49); HEMOGLOBIN 14.4 GM/dL (11.7-16.9); MCH 29.6 pg (25.7-33.7); MCHC 34.2 g/dl (32.0-35.9); MEAN CELL VOLUME 86.6 fl (80-96); MEAN PLT VOLUME 7.6 fl (7.5-11.1); PLATELET COUNT 352 K/MM3 (134-434); RBC 4.87 M/mm3 (4.00-5.60); RDW 13.6 % (11.9-15.9); WHITE BLOOD COUNT 7.4 K/mm3 (4.0-10.0)
[2020-07-02 15:50] LABS: CALCIUM 9.8 mg/dL (8.5-10.1)
[2020-07-02 15:51] LABS: ALBUMIN 4.5 g/dl (3.4-5.0); BILIRUBIN,TOTAL 0.4 mg/dL (0.2-1); BLOOD UREA NITROGEN 9.4 mg/dL (7-18); TOT PROT 8.3 g/dl (6.4-8.2)
[2020-07-02 15:54] LABS: CREATININE 0.8 mg/dL (0.55-1.3)
[2020-07-02] MEDS: THIAMINE HCL 100 MG TABLET (FP) PO SCH (22:42)
[2020-07-02] MEDS: MELATONIN 5 MG TABLETS PO SCH (22:43)
[2020-07-03] MEDS: hydrOXYzine PAMOATE 25 MG CAPSULE (FP) PO SCH ×5 (07:35→22:34)
[2020-07-03] MEDS: LORazepam 2 MG TABLET PO SCH ×4 (07:35→22:32)
[2020-07-03] MEDS ORDERED: METHADONE HCL 5 MG TABLET (FOR DETOX USE ONLY) ONE (09:32)
[2020-07-03] MEDS ORDERED: METHADONE HCL 10 MG TABLET (FOR DETOX USE ONLY) ONE (09:33)
[2020-07-03] MEDS ORDERED: amLODIPine BESYLATE 10 MG TABLET (FP) PO SCH (10:00)
[2020-07-03] MEDS ORDERED: METHADONE (DETOX) 20 MG, METHADONE (DETOX) 5 MG PO ONE (10:00)
[2020-07-03] MEDS: FLUOCINONIDE 0.05% CREAM (15 GM TUBE) TP SCH (10:25)
[2020-07-03] MEDS: PRENATAL VITAMINS W/ FOLIC ACID TABLET (FP) PO SCH (10:26)
[2020-07-03] MEDS: NICOTINE 21 MG/24 HOURS TOPICAL PATCH TD SCH (10:27)
[2020-07-03] MEDS: traZODone HCL 100 MG TABLET (FP) PO SCH (22:32)
[2020-07-03] MEDS: MIRTAZAPINE 15 MG TABLET (FP) PO SCH (22:32)
[2020-07-03] MEDS: THIAMINE HCL 100 MG TABLET (FP) PO SCH (22:32)
[2020-07-03] MEDS: MELATONIN 5 MG TABLETS PO SCH (22:32)
[2020-07-04] MEDS: LORazepam 1 MG TABLET PO SCH ×4 (06:21→22:21)
[2020-07-04] MEDS: hydrOXYzine PAMOATE 25 MG CAPSULE (FP) PO SCH ×5 (06:22→22:22)
[2020-07-04] MEDS ORDERED: amLODIPine BESYLATE 5 MG TABLET (FP) PO ONE (09:21)
[2020-07-04] MEDS ORDERED: amLODIPine BESYLATE 5 MG TABLET (FP) PO SCH (09:30)
[2020-07-04] MEDS ORDERED: METHADONE HCL 10 MG TABLET (FOR DETOX USE ONLY) PO ONE (10:00)
[2020-07-04] MEDS: FLUOCINONIDE 0.05% CREAM (15 GM TUBE) TP SCH (10:41)
[2020-07-04] MEDS: NICOTINE 21 MG/24 HOURS TOPICAL PATCH TD SCH (10:41)
[2020-07-04] MEDS: amLODIPine BESYLATE 2.5 MG TABLET (FP) PO SCH (11:16)
[2020-07-04] MEDS: PRENATAL VITAMINS W/ FOLIC ACID TABLET (FP) PO SCH (11:16)
[2020-07-04] MEDS: MIRTAZAPINE 15 MG TABLET (FP) PO SCH (22:21)
[2020-07-04] MEDS: traZODone HCL 100 MG TABLET (FP) PO SCH (22:21)
[2020-07-04] MEDS: THIAMINE HCL 100 MG TABLET (FP) PO SCH (22:21)
[2020-07-04] MEDS: MELATONIN 5 MG TABLETS PO SCH (22:22)
[2020-07-05] MEDS ORDERED: LORazepam 0.5 MG TABLET PO PRN
[2020-07-05] MEDS: LORazepam 0.5 MG TABLET PO SCH ×4 (06:06→22:20)
[2020-07-05] MEDS: hydrOXYzine PAMOATE 25 MG CAPSULE (FP) PO SCH ×5 (06:06→22:21)
[2020-07-05 08:07] LABS: SARS-CoV-2 NAA Not Detected (Not Detected)
[2020-07-05] MEDS ORDERED: METHADONE HCL 10 MG TABLET (FOR DETOX USE ONLY) ONE (09:03)
[2020-07-05] MEDS ORDERED: METHADONE HCL 5 MG TABLET (FOR DETOX USE ONLY) ONE (09:03)
[2020-07-05] MEDS ORDERED: METHADONE (DETOX) 10 MG, METHADONE (DETOX) 5 MG PO ONE (10:00)
[2020-07-05] MEDS: PRENATAL VITAMINS W/ FOLIC ACID TABLET (FP) PO SCH (10:28)
[2020-07-05] MEDS: amLODIPine BESYLATE 2.5 MG TABLET (FP) PO SCH (10:32)
[2020-07-05] MEDS: FLUOCINONIDE 0.05% CREAM (15 GM TUBE) TP SCH (10:32)
[2020-07-05] MEDS: NICOTINE 21 MG/24 HOURS TOPICAL PATCH TD SCH (10:34)
[2020-07-05] MEDS: traZODone HCL 100 MG TABLET (FP) PO SCH (22:20)
[2020-07-05] MEDS: MELATONIN 5 MG TABLETS PO SCH (22:21)
[2020-07-05] MEDS: THIAMINE HCL 100 MG TABLET (FP) PO SCH (22:21)
[2020-07-05] MEDS: MIRTAZAPINE 15 MG TABLET (FP) PO SCH (22:21)
[2020-07-06] MEDS ORDERED: LORazepam 0.5 MG TABLET PO ONE (05:00)
[2020-07-06] MEDS: hydrOXYzine PAMOATE 25 MG CAPSULE (FP) PO SCH ×5 (07:11→22:51)
[2020-07-06] MEDS ORDERED: METHADONE HCL 10 MG TABLET (FOR DETOX USE ONLY) PO ONE (10:00)
[2020-07-06] MEDS: NICOTINE 21 MG/24 HOURS TOPICAL PATCH TD SCH (10:25)
[2020-07-06] MEDS: FLUOCINONIDE 0.05% CREAM (15 GM TUBE) TP SCH (10:25)
[2020-07-06] MEDS: PRENATAL VITAMINS W/ FOLIC ACID TABLET (FP) PO SCH (10:26)
[2020-07-06] MEDS: amLODIPine BESYLATE 2.5 MG TABLET (FP) PO SCH (10:45)
[2020-07-06] MEDS: traZODone HCL 100 MG TABLET (FP) PO SCH (22:51)
[2020-07-06] MEDS: THIAMINE HCL 100 MG TABLET (FP) PO SCH (22:51)
[2020-07-06] MEDS: MIRTAZAPINE 15 MG TABLET (FP) PO SCH (22:51)
[2020-07-06] MEDS: MELATONIN 5 MG TABLETS PO SCH (22:51)
[2020-07-07] MEDS ORDERED: METHADONE HCL 5 MG TABLET (FOR DETOX USE ONLY) PO ONE (06:00)
[2020-07-07] MEDS: hydrOXYzine PAMOATE 25 MG CAPSULE (FP) PO SCH (06:50)
[2020-07-07 11:46] VITALS: BP 132/81; PULSE 74; TEMP 96.9
== END 2020-07-07 09:40 | disposition home or self-care (01) | DRG 773 ==
LOC: YASAS 09:40 → Y6N 10:58
PROVIDERS: ADMIT Allergy & Immunology; ATTEND Allergy & Immunology
PROC: HZ2ZZZZ Detoxification Services for Substance Abuse Treatment (ICD-10-PCS; principal; 2020-07-02)
DX: F11.23 Opioid dependence with withdrawal (principal); F10.230 Alcohol dependence with withdrawal, uncomplicated; F14.20 Cocaine dependence, uncomplicated; F17.210 Nicotine dependence, cigarettes, uncomplicated; F19.282 Other psychoactive substance dependence with psychoactive substance-induced sleep disorder; F25.9 Schizoaffective disorder, unspecified; I10 Essential (primary) hypertension; E78.00 Pure hypercholesterolemia, unspecified; B18.2 Chronic viral hepatitis C; M62.9 Disorder of muscle, unspecified; M54.5 Low back pain; Z86.19 Personal history of other infectious and parasitic diseases; Z88.8 Allergy status to other drugs, medicaments and biological substances
CPT/HCPCS: 36415; 80053; 82947; 82962; 85027; 86780; C9803; U0003; U0005

== ENCOUNTER 2020-10-23 11:39 | Inpatient (IN) | payer OTHER ==
[2020-10-23 13:12] VITALS: BMI 31.1
[2020-10-23] MEDS ORDERED: MAGNESIUM HYDROX 2400MG/30ML ORAL SUSPENSION 30 ML CUP PO PRN (14:16)
[2020-10-23] MEDS ORDERED: MAGNESIUM CITRATE 300 ML BOTTLE PO PRN (14:16)
[2020-10-23] MEDS ORDERED: ONDANSETRON *ODT* 4 MG TABLET SL PRN (14:16)
[2020-10-23] MEDS ORDERED: ACETAMINOPHEN 325 MG TABLET (FP) PO PRN ×2 (14:16)
[2020-10-23] MEDS ORDERED: IBUPROFEN 400 MG TABLET (FP) PO PRN (14:16)
[2020-10-23] MEDS ORDERED: MAG HYDROX/AL HYDROX/SIMETH 30 ML UNIT-DOSE CUP PO PRN (14:16)
[2020-10-23] MEDS ORDERED: NICOTINE POLACRILEX 2 MG GUM BUC PRN (14:16)
[2020-10-23] MEDS ORDERED: BISMUTH SUBSALICYLATE 524 MG/30 ML PO PRN (14:16)
[2020-10-23] MEDS ORDERED: MENTHOL/PHENOL 1 EACH UD MM PRN (14:16)
[2020-10-23] MEDS ORDERED: cloNIDine HCL 0.1 MG TABLET PO PRN (14:18)
[2020-10-23] MEDS ORDERED: amLODIPine BESYLATE 5 MG TABLET (FP) ONE (14:52)
[2020-10-23] MEDS ORDERED: diazePAM 5 MG TABLET ONE (14:52)
[2020-10-23] MEDS: amLODIPine BESYLATE 10 MG TABLET (FP) PO SCH (14:55)
[2020-10-23] MEDS ORDERED: amLODIPine BESYLATE 2.5 MG TABLET (FP) PO SCH (15:00)
[2020-10-23] MEDS ORDERED: diazePAM 5 MG TABLET PO ONE (15:00)
[2020-10-23] MEDS ORDERED: methaDONE HCL 10 MG TABLET (FOR DETOX USE ONLY) PO ONE (21:00)
[2020-10-23] MEDS: THIAMINE HCL 100 MG TABLET (FP) PO SCH (21:18)
[2020-10-23] MEDS: MELATONIN 5 MG TABLETS PO SCH (21:18)
[2020-10-24] MEDS ORDERED: methaDONE HCL 10 MG TABLET (FOR DETOX USE ONLY) ONE (09:00)
[2020-10-24] MEDS: hydrOXYzine PAMOATE 25 MG CAPSULE (FP) PO PRN (10:33)
[2020-10-24] MEDS: amLODIPine BESYLATE 10 MG TABLET (FP) PO SCH (10:33)
[2020-10-24] MEDS: PRENATAL VITAMINS W/ FOLIC ACID TABLET (FP) PO SCH (10:34)
[2020-10-24] MEDS: diazePAM 5 MG TABLET PO PRN (10:35)
[2020-10-24 11:00] LABS: ALBUMIN 3.4 g/dl (3.4-5.0)
[2020-10-24 11:01] LABS: BLOOD UREA NITROGEN 15.2 mg/dL (7-18)
[2020-10-24 11:02] LABS: CALCIUM 8.5 mg/dL (8.5-10.1)
[2020-10-24 11:03] LABS: HEMATOCRIT 37.6 % (35.4-49); MCH 30.1 pg (25.7-33.7); MCHC 34.6 g/dl (32.0-35.9); MEAN PLT VOLUME 7.6 fl (7.5-11.1); PLATELET COUNT 233 10^3/uL (134-434); RBC 4.32 M/mm3 (4.00-5.60); RDW 13.5 % (11.9-15.9); WHITE BLOOD COUNT 4.4 K/mm3 (4.0-10.0)
[2020-10-24 11:04] LABS: CREATININE 0.7 mg/dL (0.55-1.3)
[2020-10-24 11:05] LABS: BILIRUBIN,TOTAL 0.2 mg/dL (0.2-1); TOT PROT 6.2 g/dl (6.4-8.2)
[2020-10-24] MEDS: THIAMINE HCL 100 MG TABLET (FP) PO SCH (22:00)
[2020-10-24] MEDS: MIRTAZAPINE 15 MG TABLET (FP) PO SCH (22:00)
[2020-10-24] MEDS: traZODone HCL 100 MG TABLET (FP) PO SCH (22:00)
[2020-10-24] MEDS: MELATONIN 5 MG TABLETS PO SCH (22:01)
[2020-10-25] MEDS ORDERED: methaDONE HCL 10 MG TABLET (FOR DETOX USE ONLY) PO ONE (10:00)
[2020-10-25] MEDS: METHOCARBAMOL 500 MG TABLET PO PRN (10:17)
[2020-10-25] MEDS: ARIPiprazole 10 MG TABLET PO SCH (10:17)
[2020-10-25] MEDS: SERTRALINE HCL 50 MG TABLET (FP) PO SCH (10:17)
[2020-10-25] MEDS: amLODIPine BESYLATE 10 MG TABLET (FP) PO SCH (10:17)
[2020-10-25] MEDS: PRENATAL VITAMINS W/ FOLIC ACID TABLET (FP) PO SCH (10:17)
[2020-10-25] MEDS: diazePAM 5 MG TABLET PO PRN (10:18)
[2020-10-25] MEDS: THIAMINE HCL 100 MG TABLET (FP) PO SCH (22:48)
[2020-10-25] MEDS: traZODone HCL 100 MG TABLET (FP) PO SCH (22:48)
[2020-10-25] MEDS: MELATONIN 5 MG TABLETS PO SCH (22:48)
[2020-10-25] MEDS: MIRTAZAPINE 15 MG TABLET (FP) PO SCH (22:48)
[2020-10-26] MEDS ORDERED: methaDONE HCL 10 MG TABLET (FOR DETOX USE ONLY) ONE (09:41)
[2020-10-26] MEDS: amLODIPine BESYLATE 10 MG TABLET (FP) PO SCH (10:12)
[2020-10-26] MEDS: ARIPiprazole 10 MG TABLET PO SCH (10:12)
[2020-10-26] MEDS: PRENATAL VITAMINS W/ FOLIC ACID TABLET (FP) PO SCH (10:12)
[2020-10-26] MEDS: diazePAM 5 MG TABLET PO PRN (10:13)
[2020-10-26] MEDS: SERTRALINE HCL 50 MG TABLET (FP) PO SCH (10:13)
[2020-10-26] MEDS: METHOCARBAMOL 500 MG TABLET PO PRN (10:13)
[2020-10-26] MEDS: THIAMINE HCL 100 MG TABLET (FP) PO SCH (21:23)
[2020-10-26] MEDS: traZODone HCL 100 MG TABLET (FP) PO SCH (21:23)
[2020-10-26] MEDS: MIRTAZAPINE 15 MG TABLET (FP) PO SCH (21:24)
[2020-10-26] MEDS: MELATONIN 5 MG TABLETS PO SCH (21:26)
[2020-10-27] MEDS: PRENATAL VITAMINS W/ FOLIC ACID TABLET (FP) PO SCH (09:35)
[2020-10-27] MEDS: SERTRALINE HCL 50 MG TABLET (FP) PO SCH (09:35)
[2020-10-27] MEDS: METHOCARBAMOL 500 MG TABLET PO PRN (09:35)
[2020-10-27] MEDS: amLODIPine BESYLATE 10 MG TABLET (FP) PO SCH (09:35)
[2020-10-27] MEDS: ARIPiprazole 10 MG TABLET PO SCH (09:35)
[2020-10-27] MEDS: hydrOXYzine PAMOATE 25 MG CAPSULE (FP) PO PRN ×2 (09:35→22:06)
[2020-10-27] MEDS ORDERED: methaDONE HCL 10 MG TABLET (FOR DETOX USE ONLY) PO ONE (10:00)
[2020-10-27] MEDS: MELATONIN 5 MG TABLETS PO SCH (22:06)
[2020-10-27] MEDS: MIRTAZAPINE 15 MG TABLET (FP) PO SCH (22:06)
[2020-10-27] MEDS: THIAMINE HCL 100 MG TABLET (FP) PO SCH (22:06)
[2020-10-27] MEDS: traZODone HCL 100 MG TABLET (FP) PO SCH (22:06)
[2020-10-28 09:11] VITALS: BP 131/90; PULSE 76; TEMP 97.1
[2020-10-28] MEDS: ARIPiprazole 10 MG TABLET PO SCH (09:12)
[2020-10-28] MEDS: amLODIPine BESYLATE 10 MG TABLET (FP) PO SCH (09:12)
[2020-10-28] MEDS: PRENATAL VITAMINS W/ FOLIC ACID TABLET (FP) PO SCH (09:12)
[2020-10-28] MEDS: SERTRALINE HCL 50 MG TABLET (FP) PO SCH (09:12)
== END 2020-10-28 10:49 | disposition home or self-care (01) | DRG 773 ==
LOC: YASAS 11:39 → Y6N 14:34
PROVIDERS: ADMIT Allergy & Immunology; ATTEND Allergy & Immunology
PROC: HZ2ZZZZ Detoxification Services for Substance Abuse Treatment (ICD-10-PCS; principal; 2020-10-23)
DX: F11.23 Opioid dependence with withdrawal (principal); F10.230 Alcohol dependence with withdrawal, uncomplicated; F14.20 Cocaine dependence, uncomplicated; F17.210 Nicotine dependence, cigarettes, uncomplicated; F33.9 Major depressive disorder, recurrent, unspecified; F25.9 Schizoaffective disorder, unspecified; I10 Essential (primary) hypertension; E78.00 Pure hypercholesterolemia, unspecified; L20.9 Atopic dermatitis, unspecified; M32.9 Systemic lupus erythematosus, unspecified; M54.5 Low back pain; G89.29 Other chronic pain; Z99.89 Dependence on other enabling machines and devices; Z88.0 Allergy status to penicillin
CPT/HCPCS: 36415; 80053; 85027; 86780; C9803; U0003; U0005

== ENCOUNTER 2021-01-08 12:08 | Inpatient (IN) | payer OTHER ==
[2021-01-08] MEDS ORDERED: MAGNESIUM CITRATE 300 ML BOTTLE PO PRN (14:49)
[2021-01-08] MEDS ORDERED: NICOTINE POLACRILEX 4 MG GUM BUC PRN (14:49)
[2021-01-08] MEDS ORDERED: MENTHOL/PHENOL 1 EACH UD MM PRN (14:49)
[2021-01-08] MEDS ORDERED: BISMUTH SUBSALICYLATE 524 MG/30 ML PO PRN (14:49)
[2021-01-08] MEDS ORDERED: MAG HYDROX/AL HYDROX/SIMETH 30 ML UNIT-DOSE CUP PO PRN (14:49)
[2021-01-08] MEDS ORDERED: MAGNESIUM HYDROX 2400MG/30ML ORAL SUSPENSION 30 ML CUP PO PRN (14:49)
[2021-01-08] MEDS ORDERED: ACETAMINOPHEN 325 MG TABLET (FP) PO PRN ×2 (14:49)
[2021-01-08] MEDS ORDERED: ONDANSETRON *ODT* 4 MG TABLET SL PRN (14:49)
[2021-01-08] MEDS ORDERED: IBUPROFEN 400 MG TABLET (FP) PO PRN (14:49)
[2021-01-08] MEDS ORDERED: cloNIDine HCL 0.1 MG TABLET PO PRN (14:49)
[2021-01-08] MEDS ORDERED: NICOTINE 10 MG CARTRIDGE (INHALER) IH PRN (14:49)
[2021-01-08] MEDS ORDERED: LORazepam 1 MG TABLET PO PRN (14:49)
[2021-01-08] MEDS ORDERED: methaDONE HCL 10 MG TABLET (FOR DETOX USE ONLY) PO ONE (14:49)
[2021-01-08 15:41] VITALS: BMI 31.3
[2021-01-08] MEDS ORDERED: LORazepam 2 MG TABLET ONE (16:28)
[2021-01-08] MEDS ORDERED: methaDONE HCL 10 MG TABLET (FOR DETOX USE ONLY) ONE (16:28)
[2021-01-08] MEDS: LORazepam 2 MG TABLET PO SCH ×2 (16:34→22:11)
[2021-01-08] MEDS: hydrOXYzine PAMOATE 25 MG CAPSULE (FP) PO SCH ×2 (17:34→22:11)
[2021-01-08] MEDS: amLODIPine BESYLATE 10 MG TABLET (FP) PO SCH (17:34)
[2021-01-08] MEDS: PRENATAL VITAMINS W/ FOLIC ACID TABLET (FP) PO SCH (17:35)
[2021-01-08] MEDS ORDERED: MELATONIN 5 MG TABLETS PO SCH (22:00)
[2021-01-08] MEDS: THIAMINE HCL 100 MG TABLET (FP) PO SCH (22:11)
[2021-01-09] MEDS: hydrOXYzine PAMOATE 25 MG CAPSULE (FP) PO SCH ×5 (05:36→22:11)
[2021-01-09] MEDS: LORazepam 2 MG TABLET PO SCH ×4 (05:36→22:07)
[2021-01-09] MEDS ORDERED: methaDONE HCL 10 MG TABLET (FOR DETOX USE ONLY) ONE (09:03)
[2021-01-09 10:53] LABS: HEMATOCRIT 37.7 % (35.4-49); HEMOGLOBIN 13.2 GM/dL (11.7-16.9); MCH 30.4 pg (25.7-33.7); MCHC 34.9 g/dl (32.0-35.9); MEAN CELL VOLUME 87.2 fl (80-96); MEAN PLT VOLUME 7.1 fl (7.5-11.1); PLATELET COUNT 241 10^3/uL (134-434); RBC 4.32 M/mm3 (4.00-5.60); RDW 13.4 % (11.9-15.9); WHITE BLOOD COUNT 4.9 K/mm3 (4.0-10.0)
[2021-01-09] MEDS: PRENATAL VITAMINS W/ FOLIC ACID TABLET (FP) PO SCH (10:57)
[2021-01-09] MEDS: amLODIPine BESYLATE 10 MG TABLET (FP) PO SCH (10:58)
[2021-01-09 11:03] LABS: CALCIUM 8.8 mg/dL (8.5-10.1)
[2021-01-09 11:04] LABS: ALBUMIN 3.2 g/dl (3.4-5.0)
[2021-01-09 11:06] LABS: CREATININE 0.7 mg/dL (0.55-1.3)
[2021-01-09 11:08] LABS: BILIRUBIN,TOTAL 0.3 mg/dL (0.2-1); TOT PROT 6.4 g/dl (6.4-8.2)
[2021-01-09 12:44] LABS: HIV INTERPRETATION NEGATIVE (NEGATIVE)
[2021-01-09] MEDS ORDERED: traZODone HCL 50 MG TABLET (FP) ONE (21:13)
[2021-01-09] MEDS ORDERED: MIRTAZAPINE 15 MG TABLET (FP) PO SCH (22:00)
[2021-01-09] MEDS: MIRTAZAPINE 15 MG TABLET (FP) PO SCH (22:07)
[2021-01-09] MEDS: THIAMINE HCL 100 MG TABLET (FP) PO SCH (22:07)
[2021-01-09] MEDS: traZODone HCL 100 MG TABLET (FP) PO SCH (22:07)
[2021-01-10] MEDS: LORazepam 1 MG TABLET PO SCH ×4 (06:03→22:02)
[2021-01-10] MEDS: hydrOXYzine PAMOATE 25 MG CAPSULE (FP) PO SCH ×5 (06:03→22:02)
[2021-01-10] MEDS ORDERED: methaDONE HCL 10 MG TABLET (FOR DETOX USE ONLY) PO ONE (10:00)
[2021-01-10] MEDS: ARIPiprazole 10 MG TABLET PO SCH (10:43)
[2021-01-10] MEDS: PRENATAL VITAMINS W/ FOLIC ACID TABLET (FP) PO SCH (10:43)
[2021-01-10] MEDS: amLODIPine BESYLATE 10 MG TABLET (FP) PO SCH (10:43)
[2021-01-10] MEDS: THIAMINE HCL 100 MG TABLET (FP) PO SCH (22:01)
[2021-01-10] MEDS: traZODone HCL 100 MG TABLET (FP) PO SCH (22:01)
[2021-01-10] MEDS: MIRTAZAPINE 15 MG TABLET (FP) PO SCH (22:01)
[2021-01-11] MEDS ORDERED: LORazepam 0.5 MG TABLET PO PRN
[2021-01-11] MEDS: METHOCARBAMOL 500 MG TABLET PO PRN (00:56)
[2021-01-11] MEDS: LORazepam 0.5 MG TABLET PO SCH ×4 (05:38→22:22)
[2021-01-11] MEDS: hydrOXYzine PAMOATE 25 MG CAPSULE (FP) PO SCH ×5 (05:38→22:21)
[2021-01-11] MEDS ORDERED: methaDONE HCL 10 MG TABLET (FOR DETOX USE ONLY) ONE (08:51)
[2021-01-11] MEDS: PRENATAL VITAMINS W/ FOLIC ACID TABLET (FP) PO SCH (10:19)
[2021-01-11] MEDS: amLODIPine BESYLATE 10 MG TABLET (FP) PO SCH (10:19)
[2021-01-11] MEDS: ARIPiprazole 10 MG TABLET PO SCH (10:19)
[2021-01-11] MEDS: SERTRALINE HCL 50 MG TABLET (FP) PO SCH (10:22)
[2021-01-11] MEDS: traZODone HCL 100 MG TABLET (FP) PO SCH (22:21)
[2021-01-11] MEDS: THIAMINE HCL 100 MG TABLET (FP) PO SCH (22:21)
[2021-01-11] MEDS: MIRTAZAPINE 15 MG TABLET (FP) PO SCH (22:21)
[2021-01-12] MEDS ORDERED: LORazepam 0.5 MG TABLET PO ONE (05:00)
[2021-01-12] MEDS: hydrOXYzine PAMOATE 25 MG CAPSULE (FP) PO SCH ×5 (05:46→22:11)
[2021-01-12] MEDS ORDERED: methaDONE HCL 10 MG TABLET (FOR DETOX USE ONLY) PO ONE (10:00)
[2021-01-12] MEDS: SERTRALINE HCL 50 MG TABLET (FP) PO SCH (11:01)
[2021-01-12] MEDS: amLODIPine BESYLATE 10 MG TABLET (FP) PO SCH (11:01)
[2021-01-12] MEDS: ARIPiprazole 10 MG TABLET PO SCH (11:01)
[2021-01-12] MEDS: METHOCARBAMOL 500 MG TABLET PO PRN (11:01)
[2021-01-12] MEDS: PRENATAL VITAMINS W/ FOLIC ACID TABLET (FP) PO SCH (11:03)
[2021-01-12] MEDS: MIRTAZAPINE 15 MG TABLET (FP) PO SCH (22:11)
[2021-01-12] MEDS: THIAMINE HCL 100 MG TABLET (FP) PO SCH (22:11)
[2021-01-12] MEDS: traZODone HCL 100 MG TABLET (FP) PO SCH (22:11)
[2021-01-13] MEDS: hydrOXYzine PAMOATE 25 MG CAPSULE (FP) PO SCH ×2 (06:23→10:12)
[2021-01-13] MEDS: ARIPiprazole 10 MG TABLET PO SCH (10:12)
[2021-01-13] MEDS: amLODIPine BESYLATE 10 MG TABLET (FP) PO SCH (10:12)
[2021-01-13] MEDS: PRENATAL VITAMINS W/ FOLIC ACID TABLET (FP) PO SCH (10:12)
[2021-01-13] MEDS: SERTRALINE HCL 50 MG TABLET (FP) PO SCH (10:13)
[2021-01-13 10:23] VITALS: BP 127/81; PULSE 98; TEMP 98
== END 2021-01-13 09:40 | disposition home or self-care (01) | DRG 773 ==
LOC: YASAS 12:08 → Y6N 16:26
PROVIDERS: ADMIT Allergy & Immunology; ATTEND Allergy & Immunology
PROC: HZ2ZZZZ Detoxification Services for Substance Abuse Treatment (ICD-10-PCS; principal; 2021-01-08)
DX: F11.23 Opioid dependence with withdrawal (principal); F10.230 Alcohol dependence with withdrawal, uncomplicated; F17.210 Nicotine dependence, cigarettes, uncomplicated; F25.9 Schizoaffective disorder, unspecified; F34.1 Dysthymic disorder; F32.A Depression, unspecified; I10 Essential (primary) hypertension; M54.50 Low back pain, unspecified; G89.29 Other chronic pain; Z86.19 Personal history of other infectious and parasitic diseases; Z86.61 Personal history of infections of the central nervous system; Z86.11 Personal history of tuberculosis; Z97.4 Presence of external hearing-aid; Z88.8 Allergy status to other drugs, medicaments and biological substances
CPT/HCPCS: 36415; 71046-TC-FY; 80053; 85027; 86780; 87389; 93005; 93010; C9803; U0003; U0005

== ENCOUNTER 2021-05-05 10:06 | Inpatient (IN) | payer OTHER ==
[2021-05-05 10:40] VITALS: BMI 33.5
[2021-05-05] MEDS ORDERED: clonazePAM 0.5 MG ODT TABLETS SL PRN (14:48)
[2021-05-05] MEDS ORDERED: LOPERAMIDE HCL 2 MG CAPSULE PO PRN (14:48)
[2021-05-05] MEDS ORDERED: ACETAMINOPHEN 325 MG TABLET (FP) PO PRN ×2 (14:48)
[2021-05-05] MEDS ORDERED: BISMUTH SUBSALICYLATE 524 MG/30 ML PO PRN (14:48)
[2021-05-05] MEDS ORDERED: MAGNESIUM CITRATE 300 ML BOTTLE PO PRN (14:48)
[2021-05-05] MEDS ORDERED: MAGNESIUM HYDROX 2400MG/30ML ORAL SUSPENSION 30 ML CUP PO PRN (14:48)
[2021-05-05] MEDS ORDERED: ONDANSETRON *ODT* 4 MG TABLET SL PRN (14:48)
[2021-05-05] MEDS ORDERED: MENTHOL/PHENOL 1 EACH UD MM PRN (14:48)
[2021-05-05] MEDS ORDERED: MAG HYDROX/AL HYDROX/SIMETH 30 ML UNIT-DOSE CUP PO PRN (14:48)
[2021-05-05] MEDS ORDERED: methaDONE HCL 10 MG TABLET (FOR DETOX USE ONLY) PO ONE (15:45)
[2021-05-05] MEDS: hydrOXYzine PAMOATE 25 MG CAPSULE (FP) PO PRN (15:47)
[2021-05-05] MEDS: METHOCARBAMOL 500 MG TABLET PO PRN ×2 (15:47→22:03)
[2021-05-05] MEDS: cloNIDine HCL 0.1 MG TABLET PO PRN (17:52)
[2021-05-05] MEDS: IBUPROFEN 400 MG TABLET (FP) PO PRN (17:52)
[2021-05-05] MEDS ORDERED: MELATONIN 5 MG TABLETS PO SCH (22:00)
[2021-05-05] MEDS ORDERED: MIRTAZAPINE 15 MG TABLET (FP) PO ONE (22:00)
[2021-05-05] MEDS ORDERED: traZODone HCL 50 MG TABLET (FP) PO ONE (22:00)
[2021-05-05] MEDS: THIAMINE HCL 100 MG TABLET (FP) PO SCH (22:02)
[2021-05-06] MEDS ORDERED: methaDONE HCL 10 MG TABLET (FOR DETOX USE ONLY) ONE (09:25)
[2021-05-06] MEDS: PRENATAL VITAMINS W/ FOLIC ACID TABLET (FP) PO SCH (10:10)
[2021-05-06] MEDS: amLODIPine BESYLATE 10 MG TABLET (FP) PO SCH (10:11)
[2021-05-06] MEDS: METHOCARBAMOL 500 MG TABLET PO PRN (10:13)
[2021-05-06] MEDS: NICOTINE POLACRILEX 2 MG GUM BUC PRN (10:15)
[2021-05-06] MEDS: SERTRALINE HCL 50 MG TABLET (FP) PO SCH (10:58)
[2021-05-06] MEDS: ARIPiprazole 10 MG TABLET PO SCH (10:59)
[2021-05-06 16:34] LABS: CALCIUM 9.1 mg/dL (8.5-10.1)
[2021-05-06 16:35] LABS: BLOOD UREA NITROGEN 20.6 mg/dL (7-18)
[2021-05-06 16:38] LABS: CREATININE 0.8 mg/dL (0.55-1.3)
[2021-05-06 16:40] LABS: BILIRUBIN,TOTAL 0.7 mg/dL (0.2-1); TOT PROT 7.6 g/dl (6.4-8.2)
[2021-05-06 16:41] LABS: HEMATOCRIT 42.4 % (35.4-49); HEMOGLOBIN 14.7 GM/dL (11.7-16.9); MCH 29.8 pg (25.7-33.7); MCHC 34.7 g/dl (32.0-35.9); MEAN CELL VOLUME 85.8 fl (80-96); MEAN PLT VOLUME 7.6 fl (7.5-11.1); PLATELET COUNT 343 10^3/uL (134-434); RBC 4.94 M/mm3 (4.00-5.60); RDW 13.7 % (11.9-15.9); WHITE BLOOD COUNT 5.6 K/mm3 (4.0-10.0)
[2021-05-06] MEDS: cloNIDine HCL 0.1 MG TABLET PO PRN (21:50)
[2021-05-06] MEDS: traZODone HCL 50 MG TABLET (FP) PO SCH (21:50)
[2021-05-06] MEDS: THIAMINE HCL 100 MG TABLET (FP) PO SCH (21:50)
[2021-05-07] MEDS: IBUPROFEN 400 MG TABLET (FP) PO PRN (04:38)
[2021-05-07] MEDS: cloNIDine HCL 0.1 MG TABLET PO PRN (04:39)
[2021-05-07] MEDS ORDERED: methaDONE HCL 10 MG TABLET (FOR DETOX USE ONLY) PO ONE (10:00)
[2021-05-07] MEDS: ARIPiprazole 10 MG TABLET PO SCH (10:03)
[2021-05-07] MEDS: METHOCARBAMOL 500 MG TABLET PO PRN (10:03)
[2021-05-07] MEDS: PRENATAL VITAMINS W/ FOLIC ACID TABLET (FP) PO SCH (10:03)
[2021-05-07] MEDS: SERTRALINE HCL 50 MG TABLET (FP) PO SCH (10:03)
[2021-05-07] MEDS: amLODIPine BESYLATE 10 MG TABLET (FP) PO SCH (10:03)
[2021-05-07] MEDS: hydrOXYzine PAMOATE 25 MG CAPSULE (FP) PO PRN ×2 (10:04→22:04)
[2021-05-07] MEDS: traZODone HCL 50 MG TABLET (FP) PO SCH (22:03)
[2021-05-07] MEDS: THIAMINE HCL 100 MG TABLET (FP) PO SCH (22:03)
[2021-05-08] MEDS ORDERED: methaDONE HCL 10 MG TABLET (FOR DETOX USE ONLY) ONE (09:58)
[2021-05-08] MEDS: SERTRALINE HCL 50 MG TABLET (FP) PO SCH (10:10)
[2021-05-08] MEDS: ARIPiprazole 10 MG TABLET PO SCH (10:10)
[2021-05-08] MEDS: amLODIPine BESYLATE 10 MG TABLET (FP) PO SCH (10:10)
[2021-05-08] MEDS: PRENATAL VITAMINS W/ FOLIC ACID TABLET (FP) PO SCH (10:14)
[2021-05-08] MEDS: NICOTINE POLACRILEX 2 MG GUM BUC PRN ×2 (20:06→22:10)
[2021-05-08] MEDS: THIAMINE HCL 100 MG TABLET (FP) PO SCH (22:08)
[2021-05-08] MEDS: traZODone HCL 100 MG TABLET (FP) PO SCH (22:08)
[2021-05-08] MEDS: MIRTAZAPINE 15 MG TABLET (FP) PO SCH (22:08)
[2021-05-09] MEDS ORDERED: methaDONE HCL 10 MG TABLET (FOR DETOX USE ONLY) PO ONE (10:00)
[2021-05-09] MEDS: METHOCARBAMOL 500 MG TABLET PO PRN (10:37)
[2021-05-09] MEDS: hydrOXYzine PAMOATE 25 MG CAPSULE (FP) PO PRN (10:37)
[2021-05-09] MEDS: amLODIPine BESYLATE 10 MG TABLET (FP) PO SCH (10:37)
[2021-05-09] MEDS: ARIPiprazole 10 MG TABLET PO SCH (10:38)
[2021-05-09] MEDS: SERTRALINE HCL 50 MG TABLET (FP) PO SCH (10:38)
[2021-05-09] MEDS: PRENATAL VITAMINS W/ FOLIC ACID TABLET (FP) PO SCH (10:39)
[2021-05-09] MEDS: NICOTINE POLACRILEX 2 MG GUM BUC PRN (10:42)
[2021-05-09] MEDS: traZODone HCL 100 MG TABLET (FP) PO SCH (22:10)
[2021-05-09] MEDS: THIAMINE HCL 100 MG TABLET (FP) PO SCH (22:10)
[2021-05-09] MEDS: MIRTAZAPINE 15 MG TABLET (FP) PO SCH (22:10)
[2021-05-10 06:30] VITALS: BP 136/77; PULSE 61; TEMP 98
[2021-05-10] MEDS: NICOTINE POLACRILEX 2 MG GUM BUC PRN (06:58)
== END 2021-05-10 09:30 | disposition home or self-care (01) | DRG 773 ==
LOC: YASAS 10:06 → Y6N 14:30
PROVIDERS: ADMIT Allergy & Immunology; ATTEND Allergy & Immunology
PROC: HZ2ZZZZ Detoxification Services for Substance Abuse Treatment (ICD-10-PCS; principal; 2021-05-05)
DX: F11.23 Opioid dependence with withdrawal (principal); F10.20 Alcohol dependence, uncomplicated; F14.20 Cocaine dependence, uncomplicated; F17.210 Nicotine dependence, cigarettes, uncomplicated; F25.9 Schizoaffective disorder, unspecified; F19.282 Other psychoactive substance dependence with psychoactive substance-induced sleep disorder; F19.24 Other psychoactive substance dependence with psychoactive substance-induced mood disorder; E78.5 Hyperlipidemia, unspecified; I10 Essential (primary) hypertension; L20.9 Atopic dermatitis, unspecified; M32.9 Systemic lupus erythematosus, unspecified; M19.90 Unspecified osteoarthritis, unspecified site; M54.50 Low back pain, unspecified; G89.29 Other chronic pain; Z86.19 Personal history of other infectious and parasitic diseases; Z88.8 Allergy status to other drugs, medicaments and biological substances
CPT/HCPCS: 36415; 80053; 82947; 83036; 84520; 85027; 86780; 87811; 93005; 93010; C9803; J0735; U0003; U0005

== ENCOUNTER 2021-10-31 09:28 | Inpatient (IN) | payer OTHER ==
[2021-10-31 10:13] VITALS: BMI 31.3
[2021-10-31] MEDS ORDERED: ACETAMINOPHEN 325 MG TABLET (FP) PO PRN ×2 (11:40)
[2021-10-31] MEDS ORDERED: MAGNESIUM HYDROX 2400MG/30ML ORAL SUSPENSION 30 ML CUP PO PRN (11:40)
[2021-10-31] MEDS ORDERED: MAG HYDROX/AL HYDROX/SIMETH 30 ML UNIT-DOSE CUP PO PRN (11:40)
[2021-10-31] MEDS ORDERED: BENZOCAINE/MENTHOL (CHLORASEPTIC ) LOZENGE MM PRN (11:40)
[2021-10-31] MEDS ORDERED: IBUPROFEN 400 MG TABLET (FP) PO PRN (11:40)
[2021-10-31] MEDS ORDERED: MAGNESIUM CITRATE 300 ML BOTTLE PO PRN (11:40)
[2021-10-31] MEDS ORDERED: ONDANSETRON *ODT* 4 MG TABLET SL PRN (11:40)
[2021-10-31] MEDS ORDERED: IBUPROFEN 600 MG TABLET (FP) PO PRN (11:40)
[2021-10-31] MEDS ORDERED: NICOTINE POLACRILEX 2 MG GUM BUC PRN (11:40)
[2021-10-31] MEDS ORDERED: LOPERAMIDE HCL 2 MG CAPSULE PO PRN (11:40)
[2021-10-31] MEDS ORDERED: NALOXONE HCL (KLOXXADO) 8 MG SPRAY NS PRN (11:40)
[2021-10-31] MEDS ORDERED: NICOTINE 10 MG CARTRIDGE (INHALER) IH PRN (11:40)
[2021-10-31] MEDS ORDERED: BISMUTH SUBSALICYLATE 262 MG/15 ML BTL PO PRN (11:40)
[2021-10-31] MEDS ORDERED: DICYCLOMINE HCL 10 MG CAPSULE PO PRN (11:40)
[2021-10-31] MEDS: amLODIPine BESYLATE 10 MG TABLET (FP) PO SCH (12:53)
[2021-10-31] MEDS: NICOTINE 21 MG/24 HOURS TOPICAL PATCH TD SCH (12:54)
[2021-10-31] MEDS: hydrOXYzine PAMOATE 25 MG CAPSULE (FP) PO SCH ×3 (13:00→22:41)
[2021-10-31 15:46] LABS: HEMATOCRIT 37.1 % (35.4-49); HEMOGLOBIN 12.5 GM/dL (11.7-16.9); MCH 28.5 pg (25.7-33.7); MCHC 33.8 g/dl (32.0-35.9); MEAN CELL VOLUME 84.3 fl (80-96); PLATELET COUNT 381 10^3/uL (134-434); RDW 14.1 % (11.9-15.9); WHITE BLOOD COUNT 5.2 K/mm3 (4.0-10.0)
[2021-10-31 16:00] LABS: CALCIUM 9.1 mg/dL (8.5-10.1)
[2021-10-31 16:01] LABS: ALBUMIN 3.7 g/dl (3.4-5.0); BLOOD UREA NITROGEN 13.5 mg/dL (7-18)
[2021-10-31 16:04] LABS: CREATININE 0.8 mg/dL (0.55-1.3)
[2021-10-31 16:06] LABS: BILIRUBIN,TOTAL 0.3 mg/dL (0.2-1); TOT PROT 7.1 g/dl (6.4-8.2)
[2021-10-31] MEDS ORDERED: methaDONE HCL 10 MG TABLET (FOR DETOX USE ONLY) PO ONE (17:00)
[2021-10-31] MEDS: MELATONIN 5 MG TABLETS PO SCH (22:41)
[2021-10-31] MEDS: MIRTAZAPINE 15 MG TABLET (FP) PO SCH (22:41)
[2021-10-31] MEDS: THIAMINE HCL 100 MG TABLET (FP) PO SCH (22:41)
[2021-11-01] MEDS: hydrOXYzine PAMOATE 25 MG CAPSULE (FP) PO SCH ×5 (07:08→22:06)
[2021-11-01] MEDS: PRENATAL VITAMINS W/ FOLIC ACID TABLET (FP) PO SCH (10:17)
[2021-11-01] MEDS: SERTRALINE HCL 50 MG TABLET (FP) PO SCH (10:17)
[2021-11-01] MEDS: amLODIPine BESYLATE 10 MG TABLET (FP) PO SCH (10:17)
[2021-11-01] MEDS: NICOTINE 21 MG/24 HOURS TOPICAL PATCH TD SCH (10:17)
[2021-11-01] MEDS: MELATONIN 5 MG TABLETS PO SCH (22:06)
[2021-11-01] MEDS: MIRTAZAPINE 15 MG TABLET (FP) PO SCH (22:06)
[2021-11-01] MEDS: THIAMINE HCL 100 MG TABLET (FP) PO SCH (22:06)
[2021-11-02] MEDS: hydrOXYzine PAMOATE 25 MG CAPSULE (FP) PO SCH ×5 (07:11→22:13)
[2021-11-02] MEDS ORDERED: methaDONE HCL 10 MG TABLET (FOR DETOX USE ONLY) PO ONE (10:00)
[2021-11-02] MEDS: PRENATAL VITAMINS W/ FOLIC ACID TABLET (FP) PO SCH (10:25)
[2021-11-02] MEDS: SERTRALINE HCL 50 MG TABLET (FP) PO SCH (10:25)
[2021-11-02] MEDS: amLODIPine BESYLATE 10 MG TABLET (FP) PO SCH (10:25)
[2021-11-02] MEDS: NICOTINE 21 MG/24 HOURS TOPICAL PATCH TD SCH (10:26)
[2021-11-02] MEDS: cloNIDine HCL 0.1 MG TABLET PO PRN ×2 (18:21→22:14)
[2021-11-02] MEDS: METHOCARBAMOL 500 MG TABLET PO PRN (18:21)
[2021-11-02] MEDS: MELATONIN 5 MG TABLETS PO SCH (22:13)
[2021-11-02] MEDS: THIAMINE HCL 100 MG TABLET (FP) PO SCH (22:13)
[2021-11-02] MEDS: MIRTAZAPINE 15 MG TABLET (FP) PO SCH (22:13)
[2021-11-03] MEDS: hydrOXYzine PAMOATE 25 MG CAPSULE (FP) PO SCH ×5 (07:15→22:02)
[2021-11-03] MEDS: NICOTINE 21 MG/24 HOURS TOPICAL PATCH TD SCH (10:07)
[2021-11-03] MEDS: SERTRALINE HCL 50 MG TABLET (FP) PO SCH (10:07)
[2021-11-03] MEDS: amLODIPine BESYLATE 10 MG TABLET (FP) PO SCH (10:07)
[2021-11-03] MEDS: PRENATAL VITAMINS W/ FOLIC ACID TABLET (FP) PO SCH (10:07)
[2021-11-03] MEDS: MIRTAZAPINE 15 MG TABLET (FP) PO SCH (22:02)
[2021-11-03] MEDS: MELATONIN 5 MG TABLETS PO SCH (22:02)
[2021-11-03] MEDS: THIAMINE HCL 100 MG TABLET (FP) PO SCH (22:02)
[2021-11-04] MEDS: hydrOXYzine PAMOATE 25 MG CAPSULE (FP) PO SCH ×5 (07:00→22:49)
[2021-11-04] MEDS ORDERED: methaDONE HCL 10 MG TABLET (FOR DETOX USE ONLY) PO ONE (10:00)
[2021-11-04] MEDS: PRENATAL VITAMINS W/ FOLIC ACID TABLET (FP) PO SCH (10:22)
[2021-11-04] MEDS: amLODIPine BESYLATE 10 MG TABLET (FP) PO SCH (10:22)
[2021-11-04] MEDS: NICOTINE 21 MG/24 HOURS TOPICAL PATCH TD SCH (10:22)
[2021-11-04] MEDS: SERTRALINE HCL 50 MG TABLET (FP) PO SCH (10:22)
[2021-11-04 21:04] VITALS: RESP 18
[2021-11-04] MEDS: MIRTAZAPINE 15 MG TABLET (FP) PO SCH (22:49)
[2021-11-04] MEDS: MELATONIN 5 MG TABLETS PO SCH (22:49)
[2021-11-04] MEDS: THIAMINE HCL 100 MG TABLET (FP) PO SCH (22:49)
[2021-11-04] MEDS: METHOCARBAMOL 500 MG TABLET PO PRN (22:49)
[2021-11-05] MEDS: hydrOXYzine PAMOATE 25 MG CAPSULE (FP) PO SCH ×2 (07:32→10:03)
[2021-11-05 09:27] VITALS: BP 150/81; PULSE 70; TEMP 97.7
[2021-11-05] MEDS: amLODIPine BESYLATE 10 MG TABLET (FP) PO SCH (10:03)
[2021-11-05] MEDS: PRENATAL VITAMINS W/ FOLIC ACID TABLET (FP) PO SCH (10:03)
[2021-11-05] MEDS: SERTRALINE HCL 50 MG TABLET (FP) PO SCH (10:03)
[2021-11-05] MEDS: NICOTINE 21 MG/24 HOURS TOPICAL PATCH TD SCH (10:04)
== END 2021-11-05 10:04 | disposition home or self-care (01) | DRG 773 ==
LOC: YASAS 09:28 → Y3N 11:55
PROVIDERS: ADMIT Allergy & Immunology; ATTEND Surgery
PROC: HZ2ZZZZ Detoxification Services for Substance Abuse Treatment (ICD-10-PCS; principal; 2021-10-31)
DX: F11.23 Opioid dependence with withdrawal (principal); F13.20 Sedative, hypnotic or anxiolytic dependence, uncomplicated; F17.210 Nicotine dependence, cigarettes, uncomplicated; F25.1 Schizoaffective disorder, depressive type; F19.282 Other psychoactive substance dependence with psychoactive substance-induced sleep disorder; F19.24 Other psychoactive substance dependence with psychoactive substance-induced mood disorder; E78.2 Mixed hyperlipidemia; E78.5 Hyperlipidemia, unspecified; I10 Essential (primary) hypertension; M54.50 Low back pain, unspecified; G89.29 Other chronic pain; M32.9 Systemic lupus erythematosus, unspecified; H91.93 Unspecified hearing loss, bilateral; Z86.61 Personal history of infections of the central nervous system; Z86.19 Personal history of other infectious and parasitic diseases; Z88.8 Allergy status to other drugs, medicaments and biological substances; Z97.4 Presence of external hearing-aid
CPT/HCPCS: 36415; 80053; 85027; 86780; C9803-CS; J0735; U0003; U0005

== ENCOUNTER 2022-05-10 09:16 | Inpatient (IN) | payer OTHER ==
[2022-05-10 09:41] VITALS: BMI 301.1
[2022-05-10] MEDS ORDERED: IBUPROFEN 400 MG TABLET (FP) PO PRN (10:39)
[2022-05-10] MEDS ORDERED: MAG HYDROX/AL HYDROX/SIMETH 30 ML UNIT-DOSE CUP PO PRN (10:39)
[2022-05-10] MEDS ORDERED: NICOTINE 10 MG CARTRIDGE (INHALER) IH PRN (10:39)
[2022-05-10] MEDS ORDERED: IBUPROFEN 600 MG TABLET (FP) PO PRN (10:39)
[2022-05-10] MEDS ORDERED: methaDONE HCL 10 MG TABLET (FOR DETOX USE ONLY) PO ONE (10:39)
[2022-05-10] MEDS ORDERED: LOPERAMIDE HCL 2 MG CAPSULE PO PRN (10:39)
[2022-05-10] MEDS ORDERED: BISMUTH SUBSALICYLATE 524 MG/30 ML PO PRN (10:39)
[2022-05-10] MEDS ORDERED: NICOTINE POLACRILEX 4 MG GUM BUC PRN (10:39)
[2022-05-10] MEDS ORDERED: POLYETHYLENE GLYCOL (HEALTHYLAX) 3350 17 GM PACKET PO PRN (10:39)
[2022-05-10] MEDS ORDERED: ACETAMINOPHEN 325 MG TABLET (FP) PO PRN ×2 (10:39)
[2022-05-10] MEDS ORDERED: BENZOCAINE/MENTHOL (CHLORASEPTIC ) LOZENGE MM PRN (10:39)
[2022-05-10] MEDS ORDERED: MAGNESIUM HYDROX 2400MG/30ML ORAL SUSPENSION 30 ML CUP PO PRN (10:39)
[2022-05-10] MEDS ORDERED: DICYCLOMINE HCL 10 MG CAPSULE PO PRN (10:39)
[2022-05-10] MEDS ORDERED: ONDANSETRON *ODT* 4 MG TABLET SL PRN (10:39)
[2022-05-10] MEDS ORDERED: NALOXONE HCL (KLOXXADO) 8 MG SPRAY NS PRN (10:39)
[2022-05-10] MEDS ORDERED: CLOTRIMAZOLE/BETAMET DIPROP 15 GM TUBE TP PRN (10:42)
[2022-05-10] MEDS ORDERED: methaDONE HCL 10 MG TABLET (FOR DETOX USE ONLY) ONE (11:49)
[2022-05-10] MEDS ORDERED: clonazePAM 0.5 MG ODT TABLETS SL ONE (11:56)
[2022-05-10] MEDS: TAMSULOSIN HCL 0.4 MG CAP PO SCH (13:03)
[2022-05-10] MEDS ORDERED: MELATONIN 5 MG TABLETS PO SCH (22:00)
[2022-05-10] MEDS: clonazePAM 0.5 MG ODT TABLETS SL PRN (22:14)
[2022-05-10] MEDS: METHOCARBAMOL 500 MG TABLET PO PRN (22:15)
[2022-05-10] MEDS: THIAMINE HCL 100 MG TABLET (FP) PO SCH (22:15)
[2022-05-10] MEDS: CLOTRIMAZOLE/BETAMET DIPROP 15 GM TUBE TP PRN (22:16)
[2022-05-11] MEDS: TAMSULOSIN HCL 0.4 MG CAP PO SCH (10:25)
[2022-05-11] MEDS: PRENATAL VITAMINS W/ FOLIC ACID TABLET (FP) PO SCH (10:25)
[2022-05-11] MEDS: amLODIPine BESYLATE 10 MG TABLET (FP) PO SCH (10:25)
[2022-05-11] MEDS: METHOCARBAMOL 500 MG TABLET PO PRN ×2 (10:26→22:25)
[2022-05-11] MEDS: SERTRALINE HCL 50 MG TABLET (FP) PO SCH (10:28)
[2022-05-11] MEDS: CLOTRIMAZOLE/BETAMET DIPROP 15 GM TUBE TP PRN ×2 (10:29→22:22)
[2022-05-11] MEDS: clonazePAM 0.5 MG ODT TABLETS SL PRN ×2 (10:47→18:09)
[2022-05-11] MEDS: cloNIDine HCL 0.1 MG TABLET PO PRN (18:08)
[2022-05-11] MEDS ORDERED: diphenhydrAMINE HCL 25 MG CAPSULE (FP) PO PRN (22:00)
[2022-05-11] MEDS ORDERED: MIRTAZAPINE 15 MG TABLET (FP) ONE (22:21)
[2022-05-11] MEDS: MIRTAZAPINE 30 MG TABLET PO SCH (22:24)
[2022-05-11] MEDS: THIAMINE HCL 100 MG TABLET (FP) PO SCH (22:25)
[2022-05-12 09:51] VITALS: RESP 18
[2022-05-12] MEDS ORDERED: methaDONE HCL 10 MG TABLET (FOR DETOX USE ONLY) PO ONE (10:00)
[2022-05-12] MEDS: amLODIPine BESYLATE 10 MG TABLET (FP) PO SCH (10:36)
[2022-05-12] MEDS: SERTRALINE HCL 50 MG TABLET (FP) PO SCH (10:36)
[2022-05-12] MEDS: TAMSULOSIN HCL 0.4 MG CAP PO SCH (10:36)
[2022-05-12] MEDS: PRENATAL VITAMINS W/ FOLIC ACID TABLET (FP) PO SCH (10:36)
[2022-05-12] MEDS: CLOTRIMAZOLE/BETAMET DIPROP 15 GM TUBE TP PRN (10:39)
[2022-05-12 12:15] LABS: HEMATOCRIT 38.4 % (35.4-49); HEMOGLOBIN 13.5 GM/dL (11.7-16.9); MCH 30.2 pg (25.7-33.7); MCHC 35.2 g/dl (32.0-35.9); MEAN CELL VOLUME 85.9 fl (80-96); MEAN PLT VOLUME 7.5 fl (7.5-11.1); PLATELET COUNT 363 10^3/uL (134-434); RBC 4.47 M/mm3 (4.00-5.60); RDW 13.4 % (11.9-15.9); WHITE BLOOD COUNT 8.3 K/mm3 (4.0-10.0)
[2022-05-12 12:28] LABS: CALCIUM 9.4 mg/dL (8.5-10.1)
[2022-05-12 12:29] LABS: ALBUMIN 3.6 g/dl (3.4-5.0); BLOOD UREA NITROGEN 22.4 mg/dL (7-18)
[2022-05-12 12:30] LABS: TOT PROT 6.8 g/dl (6.4-8.2)
[2022-05-12 12:31] LABS: BILIRUBIN,TOTAL 0.3 mg/dL (0.2-1)
[2022-05-12 12:32] LABS: CREATININE 0.8 mg/dL (0.55-1.3)
[2022-05-12] MEDS: clonazePAM 0.5 MG ODT TABLETS SL PRN (18:05)
[2022-05-12] MEDS ORDERED: MIRTAZAPINE 15 MG TABLET (FP) ONE (21:35)
[2022-05-12] MEDS: MIRTAZAPINE 30 MG TABLET PO SCH (22:10)
[2022-05-12] MEDS: THIAMINE HCL 100 MG TABLET (FP) PO SCH (22:10)
[2022-05-12] MEDS: METHOCARBAMOL 500 MG TABLET PO PRN (22:11)
[2022-05-12] MEDS: cloNIDine HCL 0.1 MG TABLET PO PRN (22:11)
[2022-05-13 09:52] VITALS: BP 125/70; PULSE 73; TEMP 97.1
[2022-05-13] MEDS ORDERED: NYSTATIN 100,000 UNIT/GM TOPICAL CREAM 15 GM TUBE TP SCH (10:00)
[2022-05-13] MEDS: TAMSULOSIN HCL 0.4 MG CAP PO SCH (10:34)
[2022-05-13] MEDS: SERTRALINE HCL 50 MG TABLET (FP) PO SCH (10:34)
[2022-05-13] MEDS: PRENATAL VITAMINS W/ FOLIC ACID TABLET (FP) PO SCH (10:34)
[2022-05-13] MEDS: amLODIPine BESYLATE 10 MG TABLET (FP) PO SCH (10:34)
[2022-05-14] MEDS ORDERED: methaDONE HCL 10 MG TABLET (FOR DETOX USE ONLY) PO ONE (10:00)
== END 2022-05-13 15:04 | disposition left against medical advice (07) | DRG 770 ==
LOC: YASAS 09:16 → Y3N 12:08
PROVIDERS: ADMIT Allergy & Immunology; ATTEND Surgery
PROC: HZ2ZZZZ Detoxification Services for Substance Abuse Treatment (ICD-10-PCS; principal; 2022-05-10)
DX: F11.23 Opioid dependence with withdrawal (principal); F10.230 Alcohol dependence with withdrawal, uncomplicated; F17.210 Nicotine dependence, cigarettes, uncomplicated; F19.282 Other psychoactive substance dependence with psychoactive substance-induced sleep disorder; F25.9 Schizoaffective disorder, unspecified; F32.A Depression, unspecified; E78.5 Hyperlipidemia, unspecified; H91.8X3 Other specified hearing loss, bilateral; I10 Essential (primary) hypertension; M54.50 Low back pain, unspecified; G89.29 Other chronic pain; N40.0 Benign prostatic hyperplasia without lower urinary tract symptoms; R76.11 Nonspecific reaction to tuberculin skin test without active tuberculosis; Z86.61 Personal history of infections of the central nervous system
CPT/HCPCS: 36415; 71046-TC-FY; 80053; 85027; 86780; 87811; C9803-CS; U0003; U0005